=== PATIENT | female | born 1935 ===

== ENCOUNTER 2025-05-23 07:57 | Inpatient (IN) | payer OTHER, SELFPAY ==
--- NOTE | ~2025-05-23 | CT_ITS ---
CLINICAL HISTORY: ams CT head without contrast. COMPARISON: None provided. FINDINGS: Right frontal approach TRACK FITTER shunt tubing tip terminates in the anterior horn of the right lateral ventricle. There is moderate enlargement of the lateral ventricles. Basilar cisterns are patent. No mass or mass effect. No intracranial hemorrhage or abnormal extra-axial fluid collection. Periventricular areas of hypoattenuation consistent with moderate white-matter small-vessel disease. Mild encephalomalacia along the TRACK FITTER shunt tubing in the right frontal lobe. Posterior fossa is unremarkable. Visualized paranasal sinuses and mastoid air cells are clear. No calvarial fracture. Hyperostosis frontalis. Atherosclerotic intracranial vasculature. IMPRESSION: 1. No acute intracranial findings. 2. Moderate enlargement of the lateral ventricles with ventriculoperitoneal shunt tubing positioned within the anterior horn of the right lateral ventricle. Recommend comparison with prior imaging if available. This document has been electronically signed by: Bran Tran MD on 05/23/2025 18:15:22
--- NOTE | ~2025-05-23 | CT_ITS ---
CLINICAL HISTORY: unwitnessed fall CT Head Without Contrast: Comparison: 05/23/2025 Findings: Cortical sulci are prominent. Ventricles are symmetric. There is right frontal approach ventricular catheter tip located at the septum pellucidum right lateral ventricle. Small periventricular focal areas of white matter degeneration are unchanged from the previous exam. No pericatheter fluid collections or extracranial signs of catheter disconnection. Small bilateral remote basal ganglia lacunar infarcts are present, unchanged from previous exam. No shift in midline structures No intraparenchymal bleeding or abnormal extra axial blood fluid collections Normal pituitary size There is mucosal thickening and small fluid collections in the inferior bilateral maxillary sinuses Unremarkable orbital structures No depressed fractures. Middle ear cavities and mastoid air cells are clear Impression: The right side ventriculoperitoneal catheter is unchanged in appearance from the previous exam. Ventricular sizes are unchanged from the previous exam. No signs of acute trauma This document has been electronically signed by: Kiran Michelle MD on 05/25/2025 17:13:54
[2025-05-23 08:10] VITALS: BMI 22.6
[2025-05-23 08:13] VITALS: BP 148/67; PULSE 54; RESP 16; TEMP 36.5; O2SAT 96
--- NOTE | 2025-05-23 08:22 | ED.GENADULT ---
HPI - General Adult General Chief complaint: Behavioral Concerns Stated complaint: SEC 12,COMBATIVE PER EMS Time Seen by Provider: 05/23/25 08:13 Source: patient and EMS Mode of arrival: EMS Limitations: altered mental status History of Present Illness ED Provider: GIRISH Concepcion HPI narrative: 89-year-old female history of dementia presents from the [facility] on a section 12 for combative behavior, altered mentation . Upon arrival when I asked her why she is here she tells me ?I need my [employer] adf consultant?. And then she says ?murder ?. If I asked her if something hurts she just does not answer me. Unable to obtain history or review of systems due to patient's mental status. Related Data Allergies Allergy/AdvReac Type Severity Reaction Status Date / Time No Known Allergies Allergy Verified 05/23/25 08:12 Review of Systems Review of Systems: Yes all other systems are reviewed and are negative [facility] Past Medical History Attestation statement: The following information was validated with the patient. Source: old records reviewed and nursing notes reviewed Social History Social History Smoked in Last 30 Days: No Use of substances other than those prescribed or required for medical reasons: No Advance Directives: No Advance Directives Information Provided: No Physical Exam ED Exam Exam: Appearance: Alert.? No acute distress.? Head: Normocephalic, atraumatic, no step-offs or deformities Eyes: Pupils equal, round and reactive to light.? Neck: Normal inspection.? Neck supple.? CVS: Normal heart rate and rhythm.? Pulses normal.? Respiratory: No respiratory distress.? Breath sounds normal.? Abdomen: Soft and nontender.? Skin: Skin warm and dry.? Normal skin color.? Normal skin turgor.? Extremities: No lower extremity edema.? No calf ttp. 5/5 strength to bilateral upper and lower extremities Back: No midline tenderness, no C-spine tenderness, full range of motion, no CVA tenderness bilaterally Neuro: Able to assess neurological status as patient is not answering questions. Vital Signs: Vital Signs - 24 hr 05/23/25 08:13 Temperature 97.7 F Pulse Rate 54 Respiratory Rate 16 Blood Pressure 148/67 H Pulse Oximetry 96 Oxygen Delivery Method Room Air BMI result Body Mass Index 22.6 Course Reevaluation(s) Reevaluation #1: CBC with a normocytic anemia. Chemistry with no acute electrolyte abnormalities needing intervention. Ethanol negative. Urine toxicology pending. Urine pending. Patient common cooperative therefore restraints were canceled earlier. Time: 10:48 Reevaluation #2: Upon review of [facility] records patient was diagnosed with UTI and [facility] which she has been taking. It appears as though her behaviors getting worse despite antibiotics. Plan hospital admission. Time: 14:55 Medications Administered Discontinued Medications Generic Name Dose Route Start Last Admin Trade Name Anjum PRN Reason Stop Dose Admin Diazepam 2.5 mg 05/23/25 08:22 05/23/25 08:39 Diazepam 10 Mg/2 Ml Cartridge IM 05/23/25 08:23 2.5 mg STAT STA Administration Diphenhydramine HCl 25 mg 05/23/25 08:22 05/23/25 08:39 Diphenhydramine Hcl 50 Mg/Ml Vial IM 05/23/25 08:23 25 mg ONCE ONE Administration Haloperidol Lactate 5 mg 05/23/25 08:22 05/23/25 08:39 Haloperidol Lactate 5 Mg/Ml Vial IM 05/23/25 08:23 5 mg ONCE ONE Administration Medical Decision Making Medical Decision Making [facility] Narrative: 89-year-old female presents on a section 12 for combative behavior from the [facility]. Not cooperative with history taking. Repetitively trying to get out of bed Patient is not following commands she is not listening to staff members she is trying to get out of bed and nearly falling. Not redirectable. She is a threat to self and others. At this time medication restraints ordered. Physical exam patient not cooperative, unable to perform neurologic assessment. This is likely acute psychosis, bipolar, schizophrenia and/or dementia. Will rule out UTI although less likely. Will rule out metabolic derangements. Unlikely intracranial hemorrhage, stroke, posterior stroke Plan medical clearance evaluation by care team. Differential Diagnosis Differential Diagnoses: The differential diagnosis associated with the presentation includes ( This is likely acute psychosis, bipolar, schizophrenia and/or dementia. Will rule out UTI although less likely. Will rule out metabolic derangements. Unlikely intracranial hemorrhage, stroke, posterior stroke) Admission/Observation Consideration of admission/observation: Escalation of care including admission/observation considered Lab Data [facility] Lab Attestation statement: I reviewed the patient's lab results. 05/23/25 09:13 05/23/25 09:13 Labs: Lab Results 05/23/25 Range/Units 09:13 WBC 6.3 (4.8-10.8) X10*3/uL RBC 3.73 L (4.20-5.50) X10*6/uL Hgb 11.9 L (12.0-16.0) g/dl Hct 35.4 L (37.0-47.0) % MCV 94.9 (80.0-98.0) fL MCH 31.9 (27.0-33.0) pg MCHC 33.6 (31.0-35.0) g/dl RDW 13.2 (11.0-16.0) % Plt Count 185 (160-400) X10*3/uL MPV 9.8 (9.4-12.3) fL Immature Gran % (Auto) 0.3 (0.0-0.4) % Neut % (Auto) 69.8 (45-73) % Lymph % (Auto) 16.4 L (20-40) % [place] % (Auto) 9.7 (2-11) % Eos % (Auto) 3.3 (0-4) % Baso % (Auto) 0.5 (0-2) % Lymph # (Auto) 1.0 L (1.2-4.9) X10*3/uL [place] # (Auto) 0.6 (0.1-1.2) X10*3/uL Eos # (Auto) 0.2 (0.0-0.4) X10*3/uL Baso # (Auto) 0.0 (0.0-0.2) X10*3/uL Abs Immat Gran (auto) 0.02 (0.00-0.03) X10*3/uL Absolute Neuts (auto) 4.4 (2.0-8.3) x10*3/uL Absolute Nucleated RBC 0.000 (0.0-0.012) X10*3/uL Nucleated RBC % (auto) 0.0 (0.0-0.2) /100WBC Sodium 146 H (135-145) mmol/L Potassium 3.7 (3.3-5.1) mmol/L Chloride 112 H (96-108) mmol/L Carbon Dioxide 27 (22-29) mmol/L Anion Gap 11 L (12-20) BUN 17 H (9-16) mg/dL Creatinine 0.81 (0.5-1.4) mg/dL Estim Creat Clear Calc 44.9 Estimated GFR > 60 Random Glucose 85 (60-115) mg/dL Calcium 8.9 (8.4-10.2) mg/dL Magnesium 1.9 (1.6-2.6) mg/dL Total Bilirubin 0.4 (0.0-1.0) mg/dL AST 55 H (5-31) U/L ALT 63 H (0-31) U/L Alkaline Phosphatase 81 (39-117) U/L Total Protein 5.9 L (6.5-8.0) g/dL Albumin 3.7 (3.5-5.0) g/dL Ethyl Alcohol < 10 mg/dL External Record Review External record reviewed: Outpatient record Critical Care Time Critical Care Time Critical Care Time: Yes Total Critical Care Time: 35 Attestation: I attest to this time spent taking care of the patient, obtaining history, physical, reviewing labs, imaging, treatment of patients condition +/- specialist/hospitalist consult +/- procedure Discharge Plan Discharge Clinical Impression: Acute psychosis, Aggression, Delirium, Urinary tract infection Patient Disposition: Admitted As Inpatient Print Language: Martiniquais
--- NOTE | 2025-05-23 08:26 | ECG_ITS ---
Test Reason : Psych Evaluation Blood Pressure : */* mmHG Vent. Rate : 53 BPM Atrial Rate : 53 BPM P-R Int : 174 ms QRS Dur : 84 ms QT Int : 442 ms P-R-T Axes : 73 -18 29 degrees QTcB Int : 414 ms Sinus bradycardia Nonspecific ST abnormality Abnormal ECG No previous ECGs available Referred By: Mari Concepcion Electronically Signed By: Ray Escobar
[2025-05-23] MEDS: diazePAM 10 MG/2 ML CARTRIDGE 2.5 MG IM (08:39)
[2025-05-23 09:23] LABS: MANUAL DIFF FLAG NO
[2025-05-23 09:25] LABS: Hematocrit 35.4 % (37.0-47.0); Hemoglobin 11.9 g/dl (12.0-16.0); Imm Gran Abs Auto 0.02 X10*3/uL (0.00-0.03); Imm Gran Pct Auto 0.3 % (0.0-0.4); Lymphocytes Absolute Auto 1.0 X10*3/uL (1.2-4.9); Mean Corpuscular HGB Conc 33.6 g/dl (31.0-35.0); Mean Corpuscular Hemoglobin 31.9 pg (27.0-33.0); Mean Corpuscular Volume 94.9 fL (80.0-98.0); NRBC Abs Auto 0.000 X10*3/uL (0.0-0.012); NRBC Pct Auto 0.0 /100WBC (0.0-0.2); Platelet Count 185 X10*3/uL (160-400); Red Blood Count 3.73 X10*6/uL (4.20-5.50); White Blood Count 6.3 X10*3/uL (4.8-10.8)
[2025-05-23 09:46] LABS: Alanine Aminotransferase 63 U/L (0-31); Albumin Level 3.7 g/dL (3.5-5.0); Alkaline Phosphatase 81 U/L (39-117); Anion Gap 11 (12-20); Aspartate Amino Transferase 55 U/L (5-31); Blood Urea Nitrogen 17 mg/dL (9-16); Calcium 8.9 mg/dL (8.4-10.2); Carbon Dioxide 27 mmol/L (22-29); Chloride 112 mmol/L (96-108); Creatinine Clr Calc Pharmacy 44.9; Estimated Glomerular Filt Rate > 60; Magnesium 1.9 mg/dL (1.6-2.6); Potassium 3.7 mmol/L (3.3-5.1); Sodium 146 mmol/L (135-145); Total Protein 5.9 g/dL (6.5-8.0)
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
--- NOTE | 2025-05-23 15:28 | PHA.MEDREC ---
Addendum entered by Carlos White, Dick 05/23/25 16:07: MED REC CHECKED BY [facility] Original Note: Pharmacy Consult ? Medication Reconciliation Pharmacy has completed the medication reconciliation. Utilized list from the [facility] to confirm med list.
--- NOTE | 2025-05-23 16:22 | PM.IMHP ---
History of Present Illness Date of Service: 05/23/25 Attending physician on admission: [facility] Chief Complaint: AMS This is an 89-year-old female with a history of dementia who was sent in from the [facility] on a section 12 due to combative behavior. She was seen at [facility] 2 days ago and diagnosed with a UTI and discharged on Keflex. In the emergency department she is afebrile, lab work reveals no leukocytosis. Chemistry does reveal mild hypernatremia with a sodium of 146, mild transaminitis with continue AST 55, ALT 63. Alcohol level less than 10. In the emergency department she received Valium and Haldol and was also started on IV ceftriaxone due to concern over worsening urinary tract infection. UA has not been collected at this time. Patient was calm and cooperative upon my exam, she knows her name and as she is in the hospital but is unable to provide any history regarding her health or why she is here. Medical history was obtained from her chart sent from the [facility] which indicates a history of hypertension, hyperlipidemia, anxiety, dementia, mood disorder, delirium unspecified, psychotic disturbance unspecified. She denies any specific complaints including dysuria, abdominal pain, nausea, vomiting, fever, chills. She has not remember going to [facility] or what happened while she was there. She did not know that she has been recently diagnosed with a UTI or that she has been taking antibiotics. Review of Systems Review of Systems: Not a reliable historian Yes all other systems are reviewed and are negative Constitutional: Constitutional: Denies chills and Denies fever(s) Cardiovascular: Cardiovascular: Denies chest pain and Denies palpitations Gastrointestinal: Gastrointestinal: Denies nausea and Denies vomiting Endocrine: Endocrine: Denies palpitations [facility] Medical History Anxiety HLD (hyperlipidemia) HTN (hypertension) Dementia Social History Smoked in Last 30 Days: No Use of substances other than those prescribed or required for medical reasons: No Advance Directives: No Advance Directives Information Provided: No Meds Allergies Allergy/AdvReac Type Severity Reaction Status Date / Time No Known Allergies Allergy Verified 05/23/25 08:12 Active Medications: Current Medications Acetaminophen (Acetaminophen 325 Mg Tablet) 650 mg PO Q6H PRN PRN Reason: Pain, Mild 1-3,fever,headache Calcium Carbonate (Calcium Carbonate 750 Mg Tab.Chew) 750 mg PO Q4H PRN PRN Reason: Heartburn Enoxaparin Sodium (Enoxaparin Sodium 40 Mg/0.4 Ml Syringe) 40 mg SUBCUT Q24H ZOË Magnesium Hydroxide (Milk Of Magnesia 30 Ml Oral.Susp) 30 ml PO DAILY PRN PRN Reason: Constipation Melatonin (Melatonin 3 Mg Tablet) 6 mg PO BEDTIME PRN PRN Reason: Insomnia Sodium Chloride (0.9 % Sodium Chloride Flush 3 Ml Syringe) 3 ml IVFLUSH QSHIFT [facility] Home Medications ?Medication ?Instructions ?Recorded ?Confirmed ?Last Taken ?Type alendronate 70 mg tablet 70 mg PO PONCE 05/23/25 05/23/25 Unknown History atorvastatin 10 mg tablet 10 mg PO DAILY 05/23/25 05/23/25 Unknown History calcium 600 mg (as 1 cap PO BID 05/23/25 05/23/25 Unknown History carbonate)-vitamin D3 5 mcg (200 unit) capsule (Calcium 600 + D(3)) carvedilol 3.125 mg tablet 3.125 mg PO BID 05/23/25 05/23/25 Unknown History docusate sodium 100 mg capsule 100 mg PO BID 05/23/25 05/23/25 Unknown History (Colace) donepezil 23 mg tablet 23 mg PO BEDTIME 05/23/25 05/23/25 Unknown History doxepin 10 mg capsule 20 mg PO BEDTIME 05/23/25 05/23/25 Unknown History gabapentin 100 mg capsule 100 mg PO TID 05/23/25 05/23/25 Unknown History melatonin 3 mg tablet 6 mg PO BEDTIME insomnia 05/23/25 05/23/25 Unknown History multivitamin 1 tab PO DAILY 05/23/25 05/23/25 Unknown History sertraline 100 mg tablet 100 mg PO DAILY 05/23/25 05/23/25 Unknown History trazodone 50 mg tablet 25 mg PO BEDTIME 05/23/25 05/23/25 Unknown History Physical Exam Vital Signs and Narrative: Vital Signs: Last Vital Signs Temp 97.7 F 05/23/25 08:13 Pulse 54 05/23/25 08:13 Resp 16 05/23/25 08:13 BP 148/67 H 05/23/25 08:13 Pulse Ox 96 05/23/25 08:13 O2 Del Method Room Air 05/23/25 08:13 BMI result Body Mass Index 22.6 Const: General: cooperative, comfortable, alert, awake and Physically active Nutritional Appearance: average body habitus Orientation/consciousness: oriented to person and oriented to place (knows she is in the hospital, did not know it was [facility]) Eyes: Pupils: Equal, round and reactive pupils present Resp: Effort & Inspection: normal respiratory effort, able to speak in complete sentences and no respiratory distress Cardio: Rate: regular rate GI: Inspection: No distended Palpation (GI): Soft to palpation and nontender Neuro: Other: speech clear General: oriented to person, oriented to place (knows she is in the hospital, did not know it was [facility]), moves all extremities and CN's II-XI intact bilaterally Cranial nerves: Yes Equal, round and reactive pupils present Results Labs 05/23/25 09:13 05/23/25 09:13 Labs: Laboratory Results - last 24 hr 05/23/25 09:13 MCV 94.9 MCH 31.9 MCHC 33.6 RDW 13.2 Plt Count 185 MPV 9.8 Immature Gran % (Auto) 0.3 Neut % (Auto) 69.8 Lymph % (Auto) 16.4 L [place] % (Auto) 9.7 Eos % (Auto) 3.3 Baso % (Auto) 0.5 Lymph # (Auto) 1.0 L [place] # (Auto) 0.6 Eos # (Auto) 0.2 Baso # (Auto) 0.0 Abs Immat Gran (auto) 0.02 Absolute Neuts (auto) 4.4 Absolute Nucleated RBC 0.000 Nucleated RBC % (auto) 0.0 Anion Gap 11 L Estim Creat Clear Calc 44.9 Estimated GFR > 60 Random Glucose 85 Calcium 8.9 Magnesium 1.9 Total Bilirubin 0.4 AST 55 H ALT 63 H Alkaline Phosphatase 81 Total Protein 5.9 L Albumin 3.7 Ethyl Alcohol < 10 Assessment and Plan (1) Altered mental status: Status: Acute Plan This is an 89-year-old female with a history of dementia, anxiety, hyperlipidemia, hypertension, mood disorder history of psychotic disturbance who was sent on section 12 from [facility] due to combative behavior Acute encephalopathy work up in progress, no obvious source at this time h/o dementia - appears to have mood disorder and h/o psychotic d/o based on chart no focal neurological deficits. no fever, or wbc count to indicate infection [facility] records reviewed urine culture from 05/21 is negative Mild hypernatremia (na 146 and mild transaminitis) does not explain reported change in behavior UA, full drug screen and blood cultures pending, brain CT, B12, folate, TSH if all negative ?progression of dementia or psychiatric illness - will consult psych for input brought in on section 12 - will need care team eval prior to discharge Mild hypernatremia follow BMP transaminitis trend LFTs dementia/mood Continue sertraline, trazodone, doxepin, denepezil HTN carvedilol HLD statin dvt ppx - lovenox code status - MOLST form DNR/DNI Due to unclear cause of encephalopathy and ongoing workup hospital stays expected to span 2 midnights for workup and evaluation Quality Stroke Does the patient have a stroke diagnosis?: No VTE Prior VTE?: No VTE Risk Level:: Medical - moderate - high VTE Device Contraindication: N/A - Device Ordered VTE Drug Contraindication: N/A - Med Ordered
[2025-05-23 17:01] LABS: Thyroid Stimulating Hormone 0.75 uIU/mL (0.32-4.0)
--- NOTE | 2025-05-23 17:02 | PC.NURSE ---
Report given to overflow
[2025-05-23 17:11] VITALS: BP 160/79; PULSE 54; RESP 18; TEMP 36.1; O2SAT 98
[2025-05-23] MEDS: OLANZapine 10 MG VIAL 2.5 MG IM (17:40)
--- NOTE | 2025-05-23 17:48 | PC.NURSE ---
patient was brought over from main ED to OF bed 4, pt awake/alert to person and knows she is in the hospital rr equal/non labored, vitals were obtained and are stable. Within a few minutes of patient on overflow, pt began exit seeking and was agitated, unable to be redirected and combative. Security was called to assist and provider was notified who suggested the PO zyprexa- pt attempting to rip out the IV in her hand- provider Radha Sal was notified we need IM medications. Dr. Soliz ordered IM zyprexa and came to the OF unit to find the patient at the nurses station being confrontational and cantankerous again exit seeking. Pharmacy was called as the order wasnt approved and it was needed stat, this nurse called to main to get the medication brought over if possible. Pharmacy approved the order and came down with the medication. The patient was administered 2.5 mg IM zyprexa- please see medical restraint form.
[2025-05-23 20:00] VITALS: BP 148/51; PULSE 54; RESP 14; TEMP 36.7; O2SAT 97
[2025-05-23 20:21] VITALS: PULSE 54
[2025-05-23] MEDS: traZODone HCL 25 MG HALFTAB PO (20:26)
--- NOTE | 2025-05-23 20:48 | PM.PSYCN ---
History of Present Illness Date of Service: 05/23/25 Chief Complaint: encephalopathy Reason for Consult: increasing agitation behaviors Requesting physician: Radha Sal Discussed with referring provider: Yes (Briefly as provider is not currently on shift ) Sources of Information: patient interviewed and crisis/core team assessment reviewed HPI Narrative: 89-year-old female history of dementia presents from the [facility] on a section 12 for combative behavior, altered mentation Patient seen 1855 in her room [facility] with the presence of sitter in her room. Patient is not reliable person d/t possible dementia and forgetful with current mental stattus change. Prior to meet with this provider, patient was given IM 2.5mg of Zyprexa d/t agitation. She appears calmer, pleasant and cooperative. She feels overwhelmed and not sure how and what brought her here at [facility] She is aware of , knowing she is in the hospital but not day/date/year/ or situation. Past Psychiatric History: Denies. However, poor historian Medical Evaluation Reviewed: Yes Deferred to medical team. Per the attending, patient has no contributing medical condition to her mental status change. Personal & Social History: report she is single, never and has no children Review of Systems Review of Systems No SOB or coughing. No breathing problems during 1-1 assessment. Yes Unobtainable due to mental status PMFSH Medical History Anxiety HLD (hyperlipidemia) HTN (hypertension) Dementia Family History: Not able to obtain. She reports her parents are still alive. they are both 88-89 years old . Denies having siblings. 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 Substance History: Not discuss Trauma History: not discuss Diagnostics Vital Signs (24Hr): Vital Signs - 24 hr 05/23/25 08:13 05/23/25 17:11 05/23/25 20:00 Temperature 97.7 F 97.0 F 98.1 F Pulse Rate 54 54 54 Respiratory Rate 16 18 14 Blood Pressure 148/67 H 160/79 H 148/51 H Pulse Oximetry 96 98 97 Oxygen Delivery Method Room Air Room Air Room Air 05/23/25 20:21 Temperature Pulse Rate 54 Respiratory Rate Blood Pressure Pulse Oximetry Oxygen Delivery Method BMI result Body Mass Index 22.6 Labs 05/23/25 09:13 05/23/25 09:13 Labs: Laboratory Results - last 48 hr 05/23/25 05/23/25 09:13 16:35 WBC 6.3 RBC 3.73 L Hgb 11.9 L Hct 35.4 L MCV 94.9 MCH 31.9 MCHC 33.6 RDW 13.2 Plt Count 185 MPV 9.8 Immature Gran % (Auto) 0.3 Neut % (Auto) 69.8 Lymph % (Auto) 16.4 L [place] % (Auto) 9.7 Eos % (Auto) 3.3 Baso % (Auto) 0.5 Lymph # (Auto) 1.0 L [place] # (Auto) 0.6 Eos # (Auto) 0.2 Baso # (Auto) 0.0 Abs Immat Gran (auto) 0.02 Absolute Neuts (auto) 4.4 Absolute Nucleated RBC 0.000 Nucleated RBC % (auto) 0.0 Sodium 146 H Potassium 3.7 Chloride 112 H Carbon Dioxide 27 Anion Gap 11 L BUN 17 H Creatinine 0.81 Estim Creat Clear Calc 44.9 Estimated GFR > 60 Random Glucose 85 Lactic Acid 1.2 Calcium 8.9 Magnesium 1.9 Total Bilirubin 0.4 AST 55 H ALT 63 H Alkaline Phosphatase 81 Total Protein 5.9 L Albumin 3.7 TSH 0.75 Ethyl Alcohol < 10 Mental Status Exam Mental Status Exam Narrative: Patient is alert and awake. She is wearing hospital attire. Knowing her but not knowing how old she is. She does not know day/date/year and situation that that brought her to the ED. She is aware now that she has been agitated as she was told about her behavior. She feels overwhelmed being here and do not know what is going on. She reports feeling anxious and depressed. Do not appear to be psychotic or making any delusional statements. Speech is spontaneous, WN, no pressure. Hair is unkempt. Poor insight and judgment. She is calmer that she was per nursing after IM Zyprexa. Medications Medications Current Medications Acetaminophen (Acetaminophen 325 Mg Tablet) 650 mg PO Q6H PRN PRN Reason: Pain, Mild 1-3,fever,headache Atorvastatin Calcium (Atorvastatin Calcium 10 Mg Tablet) 10 mg PO DAILY [facility] Calcium Carbonate (Calcium Carbonate 750 Mg Tab.Chew) 750 mg PO Q4H PRN PRN Reason: Heartburn Carvedilol (Carvedilol 3.125 Mg Tablet) 3.125 mg PO BID [facility]; Protocol Last Admin: 05/23/25 20:21 Dose: Not Given Docusate Sodium (Docusate Sodium 100 Mg Capsule) 100 mg PO BID [facility] Last Admin: 05/23/25 20:22 Dose: 100 mg Doxepin HCl (Doxepin Hcl 10 Mg Capsule) 20 mg PO BEDTIME [facility] Enoxaparin Sodium (Enoxaparin Sodium 40 Mg/0.4 Ml Syringe) 40 mg SUBCUT Q24H [facility] Last Admin: 05/23/25 16:59 Dose: 40 mg Gabapentin (Gabapentin 100 Mg Capsule) 100 mg PO TID [facility] Last Admin: 05/23/25 20:20 Dose: 100 mg Lorazepam (Lorazepam 0.5 Mg Tablet) 0.5 mg PO Q8H PRN PRN Reason: severe anxiety Magnesium Hydroxide (Milk Of Magnesia 30 Ml Oral.Susp) 30 ml PO DAILY PRN PRN Reason: Constipation Melatonin (Melatonin 3 Mg Tablet) 6 mg PO BEDTIME PRN PRN Reason: Insomnia Melatonin (Melatonin 3 Mg Tablet) 6 mg PO BEDTIME [facility] Last Admin: 05/23/25 20:22 Dose: 6 mg Multivitamins/Vitamin C (Multivitamin Tablet) 1 tab PO DAILY [facility] Non-Formulary Medication (Donepezil) 23 mg PO BEDTIME [facility] Olanzapine (Olanzapine 2.5 Mg Tablet) 2.5 mg PO BID [facility] Last Admin: 05/23/25 20:23 Dose: 2.5 mg Olanzapine (Olanzapine 5 Mg Tablet) 5 mg PO BID PRN PRN Reason: agitation/restlessness Sertraline HCl (Sertraline Hcl 100 Mg Tablet) 100 mg PO DAILY [facility] Sodium Chloride (0.9 % Sodium Chloride Flush 3 Ml Syringe) 3 ml IVFLUSH QSHIFT [facility] Trazodone HCl (Trazodone Hcl 25 Mg Halftab) 25 mg PO BEDTIME [facility] Last Admin: 05/23/25 20:26 Dose: 25 mg Allergies Allergies Allergy/AdvReac Type Severity Reaction Status Date / Time No Known Allergies Allergy Verified 05/23/25 08:12 Assessment & Plan Assessment & Plan (1) Aggression: Status: Acute Code(s): R46.89 - Other symptoms and signs involving appearance and behavior Plan 89-year-old female history of dementia presents from the [facility] on a section 12 for combative behavior, altered mentation. Per the attending, no medical condition contributing to her mental status. U/A culture is pending. Patient seen 1855 in her room [facility] with the presence of sitter in her room. Patient is not reliable person d/t possible dementia and forgetful with current mental status change. Prior to meet with this provider, patient was given IM 2.5mg of Zyprexa d/t agitation. She appears calmer, pleasant and cooperative. She feels overwhelmed and not sure how and what brought her here at [facility]. She is aware of , knowing she is in the hospital but not day/date/year/ or situation. At this time, I do not have information regarding family. Would need collateral Patient responded welll to IM zyprexa given prior to seeing this provider. Calm- anxious , overwhelmed, forgetful, cannot recall her behavior and do not know why she is here. She is not a reliable person for information. Thinking her parents are still alive and they are in their 88-89 which is similar to her age. For agitation: I would start her on low dose on Zyprexa 2.5 BID with 5mg PO BID PRN for severe agitation. Ativan 0.5 low dose q8hrs PRN for severe anxiety. Nursing to monitor for sedation and for any side effects as well as mental status change. Continue with 1-1 sitter for safety. Total time managing care of this patient today ____ minutes. Patient educated on: medication risk/benefits Informed Consent: further education needed
[2025-05-23] MEDS: 0.9 % Sodium Chloride Flush 3 ML SYRINGE IVFLUSH (23:18)
[2025-05-24 07:10] LABS: Alanine Aminotransferase 67 U/L (0-31); Albumin Level 3.6 g/dL (3.5-5.0); Alkaline Phosphatase 78 U/L (39-117); Anion Gap 17 (12-20); Aspartate Amino Transferase 56 U/L (5-31); Blood Urea Nitrogen 17 mg/dL (9-16); Calcium 8.7 mg/dL (8.4-10.2); Carbon Dioxide 23 mmol/L (22-29); Chloride 107 mmol/L (96-108); Creatinine Clr Calc Pharmacy 42.8; Estimated Glomerular Filt Rate > 60; Potassium 3.7 mmol/L (3.3-5.1); Sodium 143 mmol/L (135-145); Total Protein 5.6 g/dL (6.5-8.0)
[2025-05-24 07:36] VITALS: BP 178/87; PULSE 60; RESP 16; TEMP 36.2; O2SAT 98
[2025-05-24 07:42] LABS: Folate 7.9 ng/mL (> or = 4.0); Vitamin B12 500 pg/mL (200-900)
--- NOTE | 2025-05-24 09:25 | P.PNIM_ITS ---
Subjective Subjective Date of Service: 05/24/25 Review of Systems Follow up encephalopathy Still very confused and yelling at staff Ambulating with her walker Physical Exam 2 Exam: Exam: Appearing in no acute distress lung sounds are clear to auscultation heart regular rate rhythm, clear S1, S2 positive bowel sounds, abdomen is soft, nontender neuro patient is alert, confused Vital Signs: Vital Signs: Last Vital Signs Temp 97.2 F 05/24/25 07:36 Pulse 60 05/24/25 07:36 Resp 16 05/24/25 07:36 BP 178/87 H 05/24/25 07:36 Pulse Ox 98 05/24/25 07:36 O2 Del Method Room Air 05/24/25 07:36 BMI result Body Mass Index 22.6 Objective Data Active Medications Acetaminophen (Acetaminophen 325 Mg Tablet) 650 mg PO Q6H PRN PRN Reason: Pain, Mild 1-3,fever,headache Atorvastatin Calcium (Atorvastatin Calcium 10 Mg Tablet) 10 mg PO DAILY [facility] Calcium Carbonate (Calcium Carbonate 750 Mg Tab.Chew) 750 mg PO Q4H PRN PRN Reason: Heartburn Carvedilol (Carvedilol 3.125 Mg Tablet) 3.125 mg PO BID [facility]; Protocol Last Admin: 05/23/25 20:21 Dose: Not Given Documented By: AKIRA Non-Admin Reason: Decreased Heart Rate Docusate Sodium (Docusate Sodium 100 Mg Capsule) 100 mg PO BID [facility] Last Admin: 05/23/25 20:22 Dose: 100 mg Documented By: AKIRA Doxepin HCl (Doxepin Hcl 10 Mg Capsule) 20 mg PO BEDTIME [facility] Last Admin: 05/23/25 21:25 Dose: 20 mg Documented By: AKIRA Enoxaparin Sodium (Enoxaparin Sodium 40 Mg/0.4 Ml Syringe) 40 mg SUBCUT Q24H [facility] Last Admin: 05/23/25 16:59 Dose: 40 mg Documented By: SCIRPSUMEET Gabapentin (Gabapentin 100 Mg Capsule) 100 mg PO TID [facility] Last Admin: 05/23/25 20:20 Dose: 100 mg Documented By: AKIRA Lorazepam (Lorazepam 0.5 Mg Tablet) 0.5 mg PO Q8H PRN PRN Reason: severe anxiety Magnesium Hydroxide (Milk Of Magnesia 30 Ml Oral.Susp) 30 ml PO DAILY PRN PRN Reason: Constipation Melatonin (Melatonin 3 Mg Tablet) 6 mg PO BEDTIME PRN PRN Reason: Insomnia Last Admin: 05/24/25 01:49 Dose: 6 mg Documented By: TIFFANY Melatonin (Melatonin 3 Mg Tablet) 6 mg PO BEDTIME [facility] Last Admin: 05/23/25 20:22 Dose: 6 mg Documented By: AKIRA Multivitamins/Vitamin C (Multivitamin Tablet) 1 tab PO DAILY [facility] Non-Formulary Medication (Donepezil) 23 mg PO BEDTIME [facility] Olanzapine (Olanzapine 2.5 Mg Tablet) 2.5 mg PO BID [facility] Last Admin: 05/23/25 20:23 Dose: 2.5 mg Documented By: AKIAR Olanzapine (Olanzapine 5 Mg Tablet) 5 mg PO BID PRN PRN Reason: agitation/restlessness Sertraline HCl (Sertraline Hcl 100 Mg Tablet) 100 mg PO DAILY [facility] Sodium Chloride (0.9 % Sodium Chloride Flush 3 Ml Syringe) 3 ml IVFLUSH QSHIFT [facility] Last Admin: 05/23/25 23:18 Dose: 3 ml Documented By: TIFFANY Trazodone HCl (Trazodone Hcl 25 Mg Halftab) 25 mg PO BEDTIME [facility] Last Admin: 05/23/25 20:26 Dose: 25 mg Documented By: AKIRA Labs 05/23/25 09:13 05/24/25 06:13 Labs: Laboratory Results - last 24 hr 05/23/25 05/23/25 05/24/25 09:13 16:35 06:13 MCV 94.9 MCH 31.9 MCHC 33.6 RDW 13.2 Plt Count 185 MPV 9.8 Immature Gran % (Auto) 0.3 Neut % (Auto) 69.8 Lymph % (Auto) 16.4 L [place] % (Auto) 9.7 Eos % (Auto) 3.3 Baso % (Auto) 0.5 Lymph # (Auto) 1.0 L [place] # (Auto) 0.6 Eos # (Auto) 0.2 Baso # (Auto) 0.0 Abs Immat Gran (auto) 0.02 Absolute Neuts (auto) 4.4 Absolute Nucleated RBC 0.000 Nucleated RBC % (auto) 0.0 Anion Gap 11 L 17 Estim Creat Clear Calc 44.9 42.8 Estimated GFR > 60 > 60 Random Glucose 85 88 Lactic Acid 1.2 Calcium 8.9 8.7 Magnesium 1.9 Total Bilirubin 0.4 0.2 Direct Bilirubin < 0.2 AST 55 H 56 H ALT 63 H 67 H Alkaline Phosphatase 81 78 Total Protein 5.9 L 5.6 L Albumin 3.7 3.6 Vitamin B12 500 Folate 7.9 TSH 0.75 Ethyl Alcohol < 10 Assessment and Plan (1) Urinary tract infection: Status: Acute (2) Altered mental status: Status: Acute Plan 89-year-old female with a history of dementia, anxiety, hyperlipidemia, hypertension, mood disorder history of psychotic disturbance who was sent on section 12 from [facility] due to combative behavior Acute encephalopathy work up in progress, no obvious source at this time h/o dementia - appears to have mood disorder and h/o psychotic d/o based on chart no focal neurological deficits. no fever, or wbc count to indicate infection [facility] records reviewed urine culture from 05/21 is negative Mild hypernatremia (na 146 and mild transaminitis) does not explain reported change in behavior UA, full drug screen and blood cultures pending, brain CT, B12, folate, TSH if all negative ?progression of dementia or psychiatric illness - will consult psych for input brought in on section 12 - will need care team eval prior to discharge Mild hypernatremia follow BMP transaminitis trend LFTs dementia/mood Continue sertraline, trazodone, doxepin, denepezil HTN carvedilol HLD statin dvt ppx - lovenox code status - MOLST form DNR/DNI Quality Stroke Does the patient have a stroke diagnosis?: No VTE Prior VTE?: No VTE Risk Level:: Medical - moderate - high VTE Device Contraindication: N/A - Device Ordered VTE Drug Contraindication: N/A - Med Ordered
[2025-05-24 09:33] VITALS: BP 178/87; PULSE 60
[2025-05-24] MEDS: 0.9 % Sodium Chloride Flush 3 ML SYRINGE IVFLUSH ×3 (09:38→20:31)
--- NOTE | 2025-05-24 12:08 | MHC.CM.PN ---
Addendum entered by Nicolasa Dixon 05/24/25 12:55: CM RECEIVED A RETURN CALL FROM PTS ATTY WHO REPORTS HE IS THE PTS HCP AND POA, HE IS AWAY AND UNABLE TO ACCESS THE DOCUMENT AT THIS TIME, HOWEVER REPORTS IT IS ON FILE AT THE [facility] AND [facility] HE REPORTS THERE WAS CONCERN THAT HER MED PROVIDER PUT HER ON PRN MEDS AND THEY HOPE THAT WILL BE CHANGED PT WOULD NOT KNOW TO ASK FOR THEM HE IS AWARE PT HAS BEEN SEEN BY PSYCH PROVIDERS AND UNDERSTANDS HER PSYCH NEEDS MAY BE MANAGED WHILE ON THE MEDICAL UNIT CM SPOKE TO TAY AT THE [facility], SHE REPORTS SHE DOES NOT FEEL THE PT BELONGS THERE, HOWEVER IT WILL BE UP TO THE CUSTOMER SUCCESS INTERN WHO WILL BE BACK ON MONDAY SHE SAYS THE PT HAS BEEN AGGRESSIVE AND BANGING ON OTHER RESIDENTS DOORS, SHE ALSO REITERATED THE NEED FOR SCHEDULED MEDS AND HOPES ANY PRN MEDS WILL BE DC'D SHE WILL FAX A COPY OF THE PTS HCP TO CM Addendum entered by Nicolasa Dixon 05/24/25 12:14: PCP: REENA MATHEWS Original Note: PER EHR, PT IS A RESIDENT OF [facility] CM ATTEMPTED TO CONTACT STAFF AT THE [facility] TO GET BASELINE INFORMATION AND DISCUSS POTENTIAL DCP, HOWEVER THERE WAS NO ANSWER PER CHART, PT HAS A LEGAL GUARDIAN, ATTStephen MUSTAFA [phone], LEFT REQUESTING A COPY OF DOCUMENT PER NOTES, PT IS ABLE TO GO BACK TO THE [facility], HOWEVER, THEY ARE REQUESTING A [facility]-PSYCH ADMISSION PRIOR TO HER RETURN.
[2025-05-24 15:28] VITALS: BP 133/65; PULSE 54; RESP 18; TEMP 36.3; O2SAT 93
--- NOTE | 2025-05-24 17:31 | PC.NURSE ---
Patient has not voided yet during t/w shift, pt encouraged to use bathroom but states I will go when i have to , t/w offered to bladder scan pt to ensure she is not retaining any urine however pt refusing at this time, pt also refusing scheduled lovenox injection, JERRY Avalos made aware
--- NOTE | 2025-05-24 18:45 | PC.NURSE ---
Pt agitated and attempting to enter and intrude the nurses station, patient redirected to room w/ help of PO and primary RN.
[2025-05-24 20:00] VITALS: BP 160/68; PULSE 52; RESP 14; TEMP 35.9; O2SAT 97
[2025-05-24] MEDS: traZODone HCL 25 MG HALFTAB PO (20:26)
[2025-05-24 20:38] VITALS: BP 160/68; PULSE 52
[2025-05-25 04:00] VITALS: RESP 16
[2025-05-25] MEDS: 0.9 % Sodium Chloride Flush 3 ML SYRINGE IVFLUSH ×3 (09:58→20:12)
[2025-05-25 10:50] VITALS: BP 133/61; PULSE 60; RESP 12; TEMP 37; O2SAT 93
--- NOTE | 2025-05-25 11:16 | HO.PM.IMPN ---
Subjective Subjective Date of Service: 05/25/25 Review of Systems Follow up encephalopathy Still very confused and yelling at staff Ambulating with her walker Physical Exam Vital Signs: Vital Signs: Last Vital Signs Temp 98.6 F 05/25/25 10:50 Pulse 60 05/25/25 10:50 Resp 12 05/25/25 10:50 BP 133/61 05/25/25 10:50 Pulse Ox 93 05/25/25 10:50 O2 Del Method Room Air 05/25/25 10:50 BMI result Body Mass Index 22.6 Objective Data Active Medications Acetaminophen (Acetaminophen 325 Mg Tablet) 650 mg PO Q6H PRN PRN Reason: Pain, Mild 1-3,fever,headache Atorvastatin Calcium (Atorvastatin Calcium 10 Mg Tablet) 10 mg PO DAILY [facility] Last Admin: 05/25/25 09:59 Dose: 10 mg Documented By: JUAN PABLO Calcium Carbonate (Calcium Carbonate 750 Mg Tab.Chew) 750 mg PO Q4H PRN PRN Reason: Heartburn Carvedilol (Carvedilol 3.125 Mg Tablet) 3.125 mg PO BID [facility]; Protocol Last Admin: 05/25/25 09:59 Dose: Not Given Documented By: JUAN PABLO Non-Admin Reason: Decreased Heart Rate Docusate Sodium (Docusate Sodium 100 Mg Capsule) 100 mg PO BID [facility] Last Admin: 05/25/25 09:59 Dose: 100 mg Documented By: JUAN PABLO Doxepin HCl (Doxepin Hcl 10 Mg Capsule) 20 mg PO BEDTIME [facility] Last Admin: 05/24/25 20:26 Dose: 20 mg Documented By: ATILIO Enoxaparin Sodium (Enoxaparin Sodium 40 Mg/0.4 Ml Syringe) 40 mg SUBCUT Q24H [facility] Last Admin: 05/24/25 17:22 Dose: Not Given Documented By: JUAN PABLO Non-Admin Reason: Patient Refused Gabapentin (Gabapentin 100 Mg Capsule) 100 mg PO TID [facility] Last Admin: 05/25/25 09:59 Dose: 100 mg Documented By: JUAN PABLO Lorazepam (Lorazepam 0.5 Mg Tablet) 0.5 mg PO Q8H PRN PRN Reason: severe anxiety Last Admin: 05/24/25 09:34 Dose: 0.5 mg Documented By: JUAN PABLO Magnesium Hydroxide (Milk Of Magnesia 30 Ml Oral.Susp) 30 ml PO DAILY PRN PRN Reason: Constipation Melatonin (Melatonin 3 Mg Tablet) 6 mg PO BEDTIME PRN PRN Reason: Insomnia Last Admin: 05/24/25 01:49 Dose: 6 mg Documented By: TIFFANY Melatonin (Melatonin 3 Mg Tablet) 6 mg PO BEDTIME [facility] Last Admin: 05/24/25 20:27 Dose: 6 mg Documented By: ATILIO Multivitamins/Vitamin C (Multivitamin Tablet) 1 tab PO DAILY [facility] Last Admin: 05/25/25 09:59 Dose: 1 tab Documented By: JUAN PABLO Non-Formulary Medication (Donepezil) 23 mg PO BEDTIME [facility] Olanzapine (Olanzapine 2.5 Mg Tablet) 2.5 mg PO BID [facility] Last Admin: 05/25/25 09:59 Dose: 2.5 mg Documented By: JUAN PABLO Olanzapine (Olanzapine 5 Mg Tablet) 5 mg PO BID PRN PRN Reason: agitation/restlessness Last Admin: 05/24/25 15:42 Dose: 5 mg Documented By: JUAN PABLO Sertraline HCl (Sertraline Hcl 100 Mg Tablet) 100 mg PO DAILY [facility] Last Admin: 05/25/25 09:59 Dose: 100 mg Documented By: JUAN PABLO Sodium Chloride (0.9 % Sodium Chloride Flush 3 Ml Syringe) 3 ml IVFLUSH QSHIFT [facility] Last Admin: 05/25/25 09:58 Dose: 3 ml Documented By: JUAN PABLO Trazodone HCl (Trazodone Hcl 25 Mg Halftab) 25 mg PO BEDTIME [facility] Last Admin: 05/24/25 20:26 Dose: 25 mg Documented By: ATILIO Labs 05/23/25 09:13 05/24/25 06:13 Microbiology Microbiology Results: Microbiology 05/23/25 16:48 Blood Culture - Preliminary Blood - Venous No growth after 24 hours. 05/23/25 15:29 Blood Culture - Preliminary Blood - Venous No growth after 24 hours. Assessment and Plan (1) Urinary tract infection: Status: Acute (2) Altered mental status: Status: Acute Plan 89-year-old female with a history of dementia, anxiety, hyperlipidemia, hypertension, mood disorder history of psychotic disturbance who was sent on section 12 from [facility] due to combative behavior Acute encephalopathy work up in progress, no obvious source at this time h/o dementia - appears to have mood disorder and h/o psychotic d/o based on chart no focal neurological deficits. no fever, or wbc count to indicate infection [facility] records reviewed urine culture from 05/21 is negative Mild hypernatremia (na 146 and mild transaminitis) does not explain reported change in behavior UA, full drug screen and blood cultures pending, brain CT, B12, folate, TSH if all negative ?progression of dementia or psychiatric illness - will consult psych for input brought in on section 12 - will need care team eval prior to discharge Mild hypernatremia follow BMP transaminitis trend LFTs dementia/mood Continue sertraline, trazodone, doxepin, denepezil HTN carvedilol HLD statin dvt ppx - lovenox code status - MOLST form DNR/DNI Quality Stroke Does the patient have a stroke diagnosis?: No VTE Prior VTE?: No VTE Risk Level:: Medical - moderate - high VTE Device Contraindication: N/A - Device Ordered VTE Drug Contraindication: N/A - Med Ordered
[2025-05-25 12:01] LABS: Appearance Urine Clear; Glucose Urine UA Negative (Negative); PH 6.5 (5.0-9.0); Specific Gravity - Urine 1.020 (1.005-1.025); UMIC TRIGGER UACC YES
[2025-05-25 12:09] LABS: UACC Culture Trigger YES
[2025-05-25 12:21] LABS: Cannabinoid Screen Urine Not Detected (Not Detect)
--- NOTE | 2025-05-25 14:15 | PC.NURSE ---
1145 Patient ambulated to bathroom with walker and assist from 1:1 sitter, while using the bathroom sitter was waiting outside with the door cracked and asking pt if she needs helps or is done using the bathroom. Patient stated she was done and getting up, at that time sitter opened the door and pt was already tripped on her walker and fell to the floor. Patient stated no head strike however sitter was unable to verify and says he did not see her fall so he is unsure if any head strike happened. Pt states she is okay and would like to get up from the floor and go back to bed. As she was getting up she did mentioned her right arm was a little sore and she may have hit it against the wall while falling, no redness/bump/open wound present at this time, patient able to freely move arm without difficulty. Vitals were taken once pt returned to bed. T 97.8, BP 163/69, P 63, RR 18, O2 96% on RA. TRAVELING SALES REPRESENTATIVE Bailey Harrison made aware, STAT CT of head/brain w/o IV con ordered. Commode was placed at bedside and pt is to use commode rather than ambulate to bathroom per provider. 1:1 sitter educated on importance and purpose of high fall risk patients needing to have staff in the bathroom at all times. Patient continues to be a high fall risk; has bed alarm on, yellow socks/bracelet, 1:1 sitter and tele sitter in place
[2025-05-25 16:00] VITALS: BP 139/64; PULSE 58; RESP 18; TEMP 36.4; O2SAT 94
[2025-05-25 19:18] VITALS: BP 129/59; PULSE 60; RESP 18; TEMP 36.1; O2SAT 95
[2025-05-25] MEDS: traZODone HCL 25 MG HALFTAB PO (20:12)
[2025-05-26 03:12] VITALS: BP 133/60; PULSE 60; RESP 18; TEMP 36.2; O2SAT 95
[2025-05-26 08:00] VITALS: BP 143/64; PULSE 53; RESP 18; TEMP 36.4; O2SAT 94
[2025-05-26] MEDS: 0.9 % Sodium Chloride Flush 3 ML SYRINGE IVFLUSH ×3 (08:51→20:29)
--- NOTE | 2025-05-26 09:10 | P.PNIM_ITS ---
Subjective Subjective Date of Service: 05/26/25 Review of Systems Follow up encephalopathy Still very confused and yelling at staff Ambulating with her walker Physical Exam 2 Exam: Exam: Appearing in no acute distress lung sounds are clear to auscultation heart regular rate rhythm, clear S1, S2 positive bowel sounds, abdomen is soft, nontender neuro patient is alert x3, no focal deficits Vital Signs: Vital Signs: Last Vital Signs Temp 97.5 F 05/26/25 08:00 Pulse 53 05/26/25 08:00 Resp 18 05/26/25 08:00 BP 143/64 H 05/26/25 08:00 Pulse Ox 94 05/26/25 08:00 O2 Del Method Room Air 05/26/25 03:12 BMI result Body Mass Index 22.6 Objective Data Active Medications Acetaminophen (Acetaminophen 325 Mg Tablet) 650 mg PO Q6H PRN PRN Reason: Pain, Mild 1-3,fever,headache Atorvastatin Calcium (Atorvastatin Calcium 10 Mg Tablet) 10 mg PO DAILY [facility] Last Admin: 05/26/25 08:49 Dose: 10 mg Documented By: THANH Calcium Carbonate (Calcium Carbonate 750 Mg Tab.Chew) 750 mg PO Q4H PRN PRN Reason: Heartburn Carvedilol (Carvedilol 3.125 Mg Tablet) 3.125 mg PO BID [facility]; Protocol Last Admin: 05/26/25 08:49 Dose: 3.125 mg Documented By: THANH Docusate Sodium (Docusate Sodium 100 Mg Capsule) 100 mg PO BID [facility] Last Admin: 05/26/25 08:49 Dose: 100 mg Documented By: THANH Doxepin HCl (Doxepin Hcl 10 Mg Capsule) 20 mg PO BEDTIME [facility] Last Admin: 05/25/25 20:11 Dose: 20 mg Documented By: ATILIO Enoxaparin Sodium (Enoxaparin Sodium 40 Mg/0.4 Ml Syringe) 40 mg SUBCUT Q24H [facility] Last Admin: 05/25/25 16:20 Dose: 40 mg Documented By: JUAN PABLO Gabapentin (Gabapentin 100 Mg Capsule) 100 mg PO TID [facility] Last Admin: 05/26/25 08:49 Dose: 100 mg Documented By: THANH Lorazepam (Lorazepam 0.5 Mg Tablet) 0.5 mg PO Q8H PRN PRN Reason: severe anxiety Last Admin: 05/24/25 09:34 Dose: 0.5 mg Documented By: JUAN PABLO Magnesium Hydroxide (Milk Of Magnesia 30 Ml Oral.Susp) 30 ml PO DAILY PRN PRN Reason: Constipation Melatonin (Melatonin 3 Mg Tablet) 6 mg PO BEDTIME PRN PRN Reason: Insomnia Last Admin: 05/24/25 01:49 Dose: 6 mg Documented By: TIFFANY Melatonin (Melatonin 3 Mg Tablet) 6 mg PO BEDTIME [facility] Last Admin: 05/25/25 20:11 Dose: 6 mg Documented By: ATILIO Multivitamins/Vitamin C (Multivitamin Tablet) 1 tab PO DAILY [facility] Last Admin: 05/26/25 08:49 Dose: 1 tab Documented By: THANH Non-Formulary Medication (Donepezil) 23 mg PO BEDTIME [facility] Olanzapine (Olanzapine 2.5 Mg Tablet) 2.5 mg PO BID [facility] Last Admin: 05/26/25 08:49 Dose: 2.5 mg Documented By: THANH Olanzapine (Olanzapine 5 Mg Tablet) 5 mg PO BID PRN PRN Reason: agitation/restlessness Last Admin: 05/24/25 15:42 Dose: 5 mg Documented By: JUAN PABLO Sertraline HCl (Sertraline Hcl 100 Mg Tablet) 100 mg PO DAILY [facility] Last Admin: 05/26/25 08:49 Dose: 100 mg Documented By: THANH Sodium Chloride (0.9 % Sodium Chloride Flush 3 Ml Syringe) [facility] Last Admin: 05/26/25 08:51 Dose: 3 ml Documented By: THANH Trazodone HCl (Trazodone Hcl 25 Mg Halftab) 25 mg PO BEDTIME [facility] Last Admin: 05/25/25 20:12 Dose: 25 mg Documented By: ATILIO Labs 05/23/25 09:13 05/24/25 06:13 Labs: Laboratory Results - last 24 hr 05/25/25 11:50 Urine Color Yellow Urine Appearance Clear Urine pH 6.5 Ur Specific Lawrence 1.020 Urine Protein Negative Urine Glucose (UA) Negative Urine Ketones Trace Urine Blood Negative Urine Nitrite Negative Ur Leukocyte Esterase Small (1+) H Urine RBC 0-2 Urine WBC 0-5 Ur Squamous Epith Cells 0-2 Urine Bacteria None Seen Hyaline Casts 0-2 Urine Opiates Screen Not Detected Ur Buprenorphine Scrn Not Detected Ur Oxycodone Screen Not Detected Urine Methadone Screen Not Detected Urine Fentanyl Screen Not Detected Ur Barbiturates Screen Not Detected Ur Phencyclidine Scrn Not Detected Ur Amphetamines Screen Not Detected U Benzodiazepines Scrn Not Detected Urine Cocaine Screen Not Detected U Marijuana (THC) Screen Not Detected Microbiology Microbiology Results: Microbiology 05/23/25 16:48 Blood Culture - Preliminary Blood - Venous No growth after 48 hours. 05/23/25 15:29 Blood Culture - Preliminary Blood - Venous No growth after 48 hours. Assessment and Plan (1) Urinary tract infection: Status: Acute (2) Altered mental status: Status: Acute Plan 89-year-old female with a history of dementia, anxiety, hyperlipidemia, hypertension, mood disorder history of psychotic disturbance who was sent on section 12 from [facility] due to combative behavior Acute encephalopathy. Improving work up in progress, no obvious source at this time h/o dementia - appears to have mood disorder and h/o psychotic d/o based on chart no focal neurological deficits. no fever, or wbc count to indicate infection [facility] records reviewed urine culture from 05/21 is negative Mild hypernatremia (na 146 and mild transaminitis) does not explain reported change in behavior UA, full drug screen and blood cultures pending, brain CT, B12, folate, TSH if all negative ?progression of dementia or psychiatric illness - will consult psych for input brought in on section 12>care team eval prior to discharge Mild hypernatremia follow BMP transaminitis trend LFTs dementia/mood Continue sertraline, trazodone, doxepin, denepezil HTN carvedilol HLD statin dvt ppx - lovenox code status - MOLST form DNR/DNI Quality Stroke Does the patient have a stroke diagnosis?: No VTE Prior VTE?: No VTE Risk Level:: Medical - moderate - high VTE Device Contraindication: N/A - Device Ordered VTE Drug Contraindication: N/A - Med Ordered
--- NOTE | 2025-05-26 11:57 | MHC.CM.PN ---
Per MD rounds A Careteam consult will be ordered today. DP IPLOC vs return to [facility], via BLS.
[2025-05-26 16:00] VITALS: PULSE 70; RESP 18; TEMP 36.1; O2SAT 95
[2025-05-26 19:08] VITALS: BP 125/67; PULSE 57; RESP 18; TEMP 36.4; O2SAT 97
[2025-05-26] MEDS: traZODone HCL 25 MG HALFTAB PO (20:23)
[2025-05-26 20:24] VITALS: BP 174/80; PULSE 64
--- NOTE | 2025-05-27 05:34 | PC.NURSE ---
Pt ad some agitation over the night from number of people walking into the room, especially the male rounder. Was able to talk to her and get her up to the bathroom and for a walk. She got back into bed and was feeling better. The 1:1 sitter was placed in the hallway, with visibility on pt. Bed alarm is on and camera in place.
[2025-05-27 05:55] VITALS: BP 155/74; PULSE 54; RESP 18; TEMP 36.6; O2SAT 95
[2025-05-27 08:00] VITALS: BP 155/68; PULSE 54; RESP 17; TEMP 36; O2SAT 96
[2025-05-27] MEDS: 0.9 % Sodium Chloride Flush 3 ML SYRINGE IVFLUSH ×2 (08:42→14:09)
--- NOTE | 2025-05-27 10:25 | P.PNIM_ITS ---
Subjective Subjective Date of Service: 05/27/25 Review of Systems Follow up encephalopathy confusion on and off Ambulating with her walker Physical Exam 2 Exam: Exam: Appearing in no acute distress lung sounds are clear to auscultation heart regular rate rhythm, clear S1, S2 positive bowel sounds, abdomen is soft, nontender neuro patient is alert x3, no focal deficits Vital Signs: Vital Signs: Last Vital Signs Temp 96.8 F 05/27/25 08:00 Pulse 54 05/27/25 08:00 Resp 17 05/27/25 08:00 BP 155/68 H 05/27/25 08:00 Pulse Ox 96 05/27/25 08:00 O2 Del Method Room Air 05/27/25 08:00 BMI result Body Mass Index 22.6 Objective Data Active Medications Acetaminophen (Acetaminophen 325 Mg Tablet) 650 mg PO Q6H PRN PRN Reason: Pain, Mild 1-3,fever,headache Atorvastatin Calcium (Atorvastatin Calcium 10 Mg Tablet) 10 mg PO DAILY [facility] Last Admin: 05/27/25 08:40 Dose: 10 mg Documented By: RADHA Calcium Carbonate (Calcium Carbonate 750 Mg Tab.Chew) 750 mg PO Q4H PRN PRN Reason: Heartburn Carvedilol (Carvedilol 3.125 Mg Tablet) 3.125 mg PO BID [facility]; Protocol Last Admin: 05/27/25 08:40 Dose: 3.125 mg Documented By: RADHA Docusate Sodium (Docusate Sodium 100 Mg Capsule) 100 mg PO BID [facility] Last Admin: 05/27/25 08:40 Dose: 100 mg Documented By: RADHA Doxepin HCl (Doxepin Hcl 10 Mg Capsule) 20 mg PO BEDTIME [facility] Last Admin: 05/26/25 20:23 Dose: 20 mg Documented By: ATILIO Enoxaparin Sodium (Enoxaparin Sodium 40 Mg/0.4 Ml Syringe) 40 mg SUBCUT Q24H [facility] Last Admin: 05/26/25 16:12 Dose: 40 mg Documented By: THANH Gabapentin (Gabapentin 100 Mg Capsule) 100 mg PO TID [facility] Last Admin: 05/27/25 08:40 Dose: 100 mg Documented By: RADHA Lorazepam (Lorazepam 0.5 Mg Tablet) 0.5 mg PO Q8H PRN PRN Reason: severe anxiety Last Admin: 05/24/25 09:34 Dose: 0.5 mg Documented By: JUAN PABLO Magnesium Hydroxide (Milk Of Magnesia 30 Ml Oral.Susp) 30 ml PO DAILY PRN PRN Reason: Constipation Melatonin (Melatonin 3 Mg Tablet) 6 mg PO BEDTIME PRN PRN Reason: Insomnia Last Admin: 05/24/25 01:49 Dose: 6 mg Documented By: TIFFANY Melatonin (Melatonin 3 Mg Tablet) 6 mg PO BEDTIME [facility] Last Admin: 05/26/25 20:23 Dose: 6 mg Documented By: ATILIO Multivitamins/Vitamin C (Multivitamin Tablet) 1 tab PO DAILY [facility] Last Admin: 05/27/25 08:40 Dose: 1 tab Documented By: RADHA Non-Formulary Medication (Donepezil) 23 mg PO BEDTIME [facility] Olanzapine (Olanzapine 2.5 Mg Tablet) 2.5 mg PO BID [facility] Last Admin: 05/27/25 08:40 Dose: 2.5 mg Documented By: RADHA Olanzapine (Olanzapine 5 Mg Tablet) 5 mg PO BID PRN PRN Reason: agitation/restlessness Last Admin: 05/24/25 15:42 Dose: 5 mg Documented By: JUAN PABLO Sertraline HCl (Sertraline Hcl 100 Mg Tablet) 100 mg PO DAILY [facility] Last Admin: 05/27/25 08:40 Dose: 100 mg Documented By: RADHA Sodium Chloride (0.9 % Sodium Chloride Flush 3 Ml Syringe) 3 ml IVFLUSH QSHIFT [facility] Last Admin: 05/27/25 08:42 Dose: 3 ml Documented By: RADHA Trazodone HCl (Trazodone Hcl 25 Mg Halftab) 25 mg PO BEDTIME [facility] Last Admin: 05/26/25 20:23 Dose: 25 mg Documented By: ATILIO Labs 05/23/25 09:13 05/24/25 06:13 Microbiology Microbiology Results: Microbiology 05/25/25 Unknown Urine Culture - Final Urine clean catch - Clean Catch Midstream No growth. Assessment and Plan (1) Urinary tract infection: Status: Acute (2) Altered mental status: Status: Acute Plan 89-year-old female with a history of dementia, anxiety, hyperlipidemia, hypertension, mood disorder history of psychotic disturbance who was sent on section 12 from [facility] due to combative behavior Acute encephalopathy. Improving no obvious source h/o dementia - appears to have mood disorder and h/o psychotic d/o based on chart no focal neurological deficits. no fever, or wbc count to indicate infection [facility] records reviewed urine culture from 05/21 is negative Mild hypernatremia (na 146 and mild transaminitis) does not explain reported change in behavior UA, full drug screen and blood cultures neg, brain CT no acute abnormality, B12 500, folate 7.9, TSH 0.75 if all negative ?progression of dementia or psychiatric illness brought in on section 12>care team eval rec psych consult for disposition Mild hypernatremia follow BMP transaminitis trend LFTs dementia/mood Continue sertraline, trazodone, doxepin, denepezil HTN carvedilol HLD statin dvt ppx - lovenox code status - MOLST form DNR/DNI Quality Stroke Does the patient have a stroke diagnosis?: No VTE Prior VTE?: No VTE Risk Level:: Medical - moderate - high VTE Device Contraindication: N/A - Device Ordered VTE Drug Contraindication: N/A - Med Ordered
--- NOTE | 2025-05-27 12:01 | P.CDIM_ITS ---
PROVIDER RESPONSE TEXT: To clarify, the appropriate diagnosis supported by the clinical indicators: Encephalopathy due to other etiology QUERY TEXT: PHYSICIAN'S DOCUMENTATION REQUEST Date of Query: 05/26/2025 09:40 AM EDT Patient Name: Shari Bowles Admit Date: 05/23/2025 Dear Bailey Harrison [employer], A review of the medical record indicates additional documentation may be needed. Please review below and update the documentation accordingly. Clinical Indicators: Progress note 05/25/25 - Acute encephalopathy Hypernatremia - sodium 146 H Arrived with altered mental status, behavioral concerns, just discharged from [facility] with UTI. Fluids, ED Clinical impression: UTI Dementia, mood Based on the information above, please further specify, in the Progress Notes, the known or suspected type of the documented encephalopathy, if known: Metabolic Toxic Toxic metabolic Hypertensive Encephalopathy due to other etiology Other (explain) Clinically unable to determine (explain) Thank you, Madalyn Aguilera, CCS, CDIS Use of terms such as suspected, likely, concern for, or probable (associated with a specific diagnosis that is being evaluated, monitored, or treated as if it exists) are acceptable and can be coded in the inpatient setting, when documented at the time of discharge. Please use your independent medical judgment in providing your response. THIS QUERY IS PART OF THE PERMANENT MEDICAL RECORD
[2025-05-27 15:22] VITALS: BP 173/77; PULSE 62; RESP 20; TEMP 36.3; O2SAT 99
--- NOTE | 2025-05-27 17:34 | P.CNPS_ITS ---
History of Present Illness Date of Service: 05/27/25 Chief Complaint: encephalopathy Reason for Consult: ?should be all set to be discharged after medically clear. Requesting physician: Bailey Harrison Discussed with referring provider: Yes Sources of Information: patient interviewed and crisis/core team assessment reviewed HPI Narrative: 89-year-old female history of dementia presents from the [facility] on a section 12 for combative behavior, altered mentation Patent seen again as FLU to see if she is safe to discharged back to [facility] unit. Patient was seen on 05/23/25. Stated on Zyprexa 2.5mg BID with PRN 5mg BID for agitation and Ativan 0.5mg q8hrs PRN for severe anxiety. Per chart review, patient only received PRN Ativan and Zyprxa 5mg PRN once since 05/24. Mood is more stable, less anxious, less overwhelmed, no agitation, no behaviors. Patient has question why there is a person in her room all the time (sitter), she asked the sitter to be out of the room before asking that questions. Explained to patient that just for her own safety and extra help when she needs and prevent fall risk. Patient is forgetful and thinks she will return home in [place]. Case discuss with the attedning and patient is clear to discharge by tomorrow. Past Psychiatric History: Denies. However, poor historian Deferred to medical provider/team Review of Systems Review of Systems No SOB or coughing. No breathing problems during 1-1 assessment. [facility] Medical History Anxiety HLD (hyperlipidemia) HTN (hypertension) Dementia Family History: Not able to obtain. She reports her parents are still alive. they are both 88-89 years old . Denies having siblings. 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 Substance History: Not discuss Trauma History: not discuss Diagnostics Vital Signs (24Hr): Vital Signs - 24 hr 05/26/25 19:08 05/26/25 20:24 05/27/25 05:55 Temperature 97.5 F 97.9 F Pulse Rate 57 64 54 Respiratory Rate 18 18 Blood Pressure 125/67 174/80 H 155/74 H Pulse Oximetry 97 95 Oxygen Delivery Method Room Air Room Air 05/27/25 08:00 08/19/25 15:22 Temperature 96.8 F 97.3 F Pulse Rate 54 62 Respiratory Rate 17 20 Blood Pressure 155/68 H 173/77 H Pulse Oximetry 96 99 Oxygen Delivery Method Room Air Room Air BMI result Body Mass Index 22.6 Labs 05/23/25 09:13 05/24/25 06:13 Mental Status Exam Mental Status Exam Narrative: Patient is alert and awake. She is forgetful. She reports feeling anxious. Do not appear to be psychotic or making any delusional statements. Speech is spontaneous, WN, no pressure. Hair is kempt. insight is fair and judgment fair appropriate to age. She is calm. No agitation irritable mood. No safety concerns. On fall risk, Sitter at bedside Medications Medications Current Medications Acetaminophen (Acetaminophen 325 Mg Tablet) 650 mg PO Q6H PRN PRN Reason: Pain, Mild 1-3,fever,headache Atorvastatin Calcium (Atorvastatin Calcium 10 Mg Tablet) 10 mg PO DAILY [facility] Last Admin: 05/27/25 08:40 Dose: 10 mg Calcium Carbonate (Calcium Carbonate 750 Mg Tab.Chew) 750 mg PO Q4H PRN PRN Reason: Heartburn Carvedilol (Carvedilol 3.125 Mg Tablet) 3.125 mg PO BID [facility]; Protocol Last Admin: 05/27/25 08:40 Dose: 3.125 mg Docusate Sodium (Docusate Sodium 100 Mg Capsule) 100 mg PO BID [facility] Last Admin: 05/27/25 08:40 Dose: 100 mg Doxepin HCl (Doxepin Hcl 10 Mg Capsule) 20 mg PO BEDTIME [facility] Last Admin: 05/26/25 20:23 Dose: 20 mg Enoxaparin Sodium (Enoxaparin Sodium 40 Mg/0.4 Ml Syringe) 40 mg SUBCUT Q24H [facility] Last Admin: 05/26/25 16:12 Dose: 40 mg Gabapentin (Gabapentin 100 Mg Capsule) 100 mg PO TID [facility] Last Admin: 05/27/25 14:09 Dose: 100 mg Lisinopril (Lisinopril 5 Mg Tablet) 5 mg PO DAILY [facility]; Protocol Magnesium Hydroxide (Milk Of Magnesia 30 Ml Oral.Susp) 30 ml PO DAILY PRN PRN Reason: Constipation Melatonin (Melatonin 3 Mg Tablet) 6 mg PO BEDTIME PRN PRN Reason: Insomnia Last Admin: 05/24/25 01:49 Dose: 6 mg Melatonin (Melatonin 3 Mg Tablet) 6 mg PO BEDTIME [facility] Last Admin: 05/26/25 20:23 Dose: 6 mg Multivitamins/Vitamin C (Multivitamin Tablet) 1 tab PO DAILY [facility] Last Admin: 05/27/25 08:40 Dose: 1 tab Non-Formulary Medication (Donepezil) 23 mg PO BEDTIME [facility] Olanzapine (Olanzapine 2.5 Mg Tablet) 2.5 mg PO BID [facility] Last Admin: 05/27/25 08:40 Dose: 2.5 mg Olanzapine (Olanzapine 5 Mg Tablet) 5 mg PO BID PRN PRN Reason: agitation/restlessness Last Admin: 05/24/25 15:42 Dose: 5 mg Sertraline HCl (Sertraline Hcl 100 Mg Tablet) 100 mg PO DAILY [facility] Last Admin: 05/27/25 08:40 Dose: 100 mg Sodium Chloride (0.9 % Sodium Chloride Flush 3 Ml Syringe) 3 ml IVFLUSH QSHIFT [facility] Last Admin: 05/27/25 14:09 Dose: 3 ml Trazodone HCl (Trazodone Hcl 25 Mg Halftab) 25 mg PO BEDTIME [facility] Last Admin: 05/26/25 20:23 Dose: 25 mg Allergies Allergies Allergy/AdvReac Type Severity Reaction Status Date / Time No Known Allergies Allergy Verified 05/23/25 08:12 Assessment & Plan Assessment & Plan (1) Aggression: Status: Acute Code(s): R46.89 - Other symptoms and signs involving appearance and behavior Plan 89-year-old female history of dementia presents from the [facility] on a section 12 for combative behavior, altered mentation Patent seen again as FLU to see if she is safe to discharged back to [facility]. Patient was seen on 05/23/25. Stated on Zyprexa 2.5mg BID with PRN 5mg BID for agitation and Ativan 0.5mg q8hrs PRN for severe anxiety. Per chart review, patient only received PRN Ativan and Zyprxa 5mg PRN once since 05/24. Mood is more stable, less anxious, less overwhelmed, no agitation, no behaviors. Patient has question why there is a person in her room all the time (sitter), she asked the sitter to be out of the room before asking that questions. Explained to patient that just for her own safety and extra help when she needs and prevent fall risk. Patient is forgetful and thinks she will return home in [place]. Case discuss with the attending and patient is clear to discharge by tomorrow. Plan: Aggressive/agitation has resolved. Patient could be at baseline. Continue with current medication included Zyprexa 2.5mg BID which was added on 05/23. Will discontinue Zyprexa PRN and Ativan PRN upon discharge. Per Attending, will be discharge back to [facility] tomorrow. Medically clear. Total time managing care of this patient today ____ minutes. Patient educated on: medication risk/benefits Informed Consent: further education needed (d/t dementia. Need reinforce )
--- NOTE | 2025-05-27 18:01 | PC.NURSE ---
JERRY Au made aware pt BP continues to be elevated, lisinopril ordered and given per DEC.
[2025-05-27 19:11] VITALS: BP 182/78; PULSE 60; RESP 16; TEMP 36.2; O2SAT 96
[2025-05-27] MEDS: traZODone HCL 25 MG HALFTAB PO (20:20)
[2025-05-28 04:00] VITALS: BP 125/60; PULSE 54; RESP 18; TEMP 36.2; O2SAT 96
--- NOTE | 2025-05-28 04:54 | PC.NURSE ---
Patient less anxious and no agitation noted she was asking if she was leaving today but she has no clothes to wear . But explained it was getting dark outside and we will prepare her clothes tomorrow in the morning she was ok with that. no PRN Zyprexa needed only scheduled meds given .
--- NOTE | 2025-05-28 07:38 | P.DS_ITS ---
DS: Providers Provider Date of Service: 05/28/25 Date of admission: 05/23/25 16:19 Date of discharge: 05/28/25 Primary care physician: Sherley Ramirez MD Consults: 05/23/25 08:26 ED CARE Team Crisis Consult Stat Comment: Reason for consultation: Aggressive, combative. 05/23/25 16:44 Consult to Psychiatry Routine Consulting Provider: [facility] Reason for consultation: h/o dementia, mood d/o; here with increasing behaviors 05/26/25 16:38 Inpt CARE Team Crisis Consult Routine Comment: Reason for consultation: medically clear 05/27/25 07:22 Consult to Psychiatry Routine Consulting Provider: [facility] Reason for consultation: care team request for disposition DS: Diagnosis Discharge Diagnosis (1) Aggression: Status: Acute DS: Summary Hospital Course Hospital Course: History and physical as per admitting provider. This is an 89-year-old female with a history of dementia who was sent in from the [facility] on a section 12 due to combative behavior. She was seen at [facility] 2 days ago and diagnosed with a UTI and discharged on Keflex. In the emergency department she is afebrile, lab work reveals no leukocytosis. Chemistry does reveal mild hypernatremia with a sodium of 146, mild transaminitis with continue AST 55, ALT 63. Alcohol level less than 10. In the emergency department she received Valium and Haldol and was also started on IV ceftriaxone due to concern over worsening urinary tract infection. UA has not been collected at this time. Patient was calm and cooperative upon my exam, she knows her name and as she is in the hospital but is unable to provide any history regarding her health or why she is here. Medical history was obtained from her chart sent from the [facility] which indicates a history of hypertension, hyperlipidemia, anxiety, dementia, mood disorder, delirium unspecified, psychotic disturbance unspecified. She denies any specific complaints including dysuria, abdominal pain, nausea, vomi ting, fever, chills. She has not remember going to [facility] or what happened while she was there. She did not know that she has been recently diagnosed with a UTI or that she has been taking antibiotics. 89-year-old woman from long-term care facility presenting with acute encephalopathy. No obvious source of infection noted she does have a history of dementia. UA, drug screen, blood cultures, brain CT all normal. Possibly this is progression of her dementia or psychiatric illness. Brought in on a section 12, seen by care team and psychiatric team both recommended back to long-term care facility with no need for inpatient level of care for psychiatry. She did have some adjustments in her medications and was started on Zyprexa 2.5 mg twice daily and she will continue her other medications that she was on including sertraline and trazodone. Hypertension. Blood pressure has been elevated during hospitalization. Lisinopril 5 mg was added with good effect. She will continue this along with her carvedilol. Mild hyponatremia. Resolved Mild transaminitis. Very mild no need to follow Hyperlipidemia. Continue statin Time Attestation Discharge Coordination Time (in mins): 40 Quality: Safe Use of Opioids Does Pt have an Active Cancer Diagnosis on the Problem List?: No Quality: Stroke Does the patient have a stroke diagnosis?: No Physical Exam Exam: Exam: Appearing in no acute distress head is normocephalic atraumatic eyes pupils are PERRLA sclera is anicteric mouth throat mucous membranes are intact and moist neck is supple no lymphadenopathy, no JVD noted lung sounds are clear to auscultation heart regular rate rhythm, clear S1, S2 positive bowel sounds, abdomen is soft, nontender neuro patient is alert, intermittent confusion Vital Signs: Vital Signs: Last Vital Signs Temp 97.1 F 05/28/25 04:00 Pulse 54 05/28/25 04:00 Resp 18 05/28/25 04:00 BP 125/60 05/28/25 04:00 Pulse Ox 96 05/28/25 04:00 O2 Del Method Room Air 05/28/25 04:00 BMI result Body Mass Index 22.6 DS: Data Data Completed and Pending Labs on day of discharge: Preliminary micro results at discharge 05/23/25 16:48 Blood Culture - Preliminary Blood - Venous No growth after 48 hours. 05/23/25 15:29 Blood Culture - Preliminary Blood - Venous No growth after 48 hours. Discharge Plan Discharge Anticipated Discharge Date/Time: 05/28/25 07:35 Patient Disposition: Xfer LTC Discharge Diagnosis: Acute encephalopathy Hypernatremia Transaminitis Referrals: Sherley Ramirez MD [Primary Care Provider, Medical] - 1 Week Discharge Medications: New olanzapine 2.5 mg Tablet 2.5 mg PO BID Qty: 60 0RF lisinopril 5 mg Tablet 5 mg PO DAILY Qty: 30 0RF Protocol: Hold for SBP< HOLD for SBP < : 90 Continued multivitamin Tablet 1 tab PO DAILY trazodone 50 mg tablet 25 mg PO BEDTIME atorvastatin 10 mg tablet 10 mg PO DAILY alendronate 70 mg tablet 70 mg PO PONCE sertraline 100 mg tablet 100 mg PO DAILY melatonin 3 mg tablet 6 mg PO BEDTIME doxepin 10 mg capsule 20 mg PO BEDTIME carvedilol 3.125 mg tablet 3.125 mg PO BID docusate sodium [Colace] 100 mg capsule 100 mg PO BID gabapentin 100 mg capsule 100 mg PO TID calcium carbonate-vitamin D3 [Calcium 600 + D(3)] 600 mg-5 mcg (200 unit) capsule 1 cap PO BID donepezil 23 mg tablet 23 mg PO BEDTIME Discharge Orders: Discharge Order (Routine); Ordered 05/28/25 Ordered By: Bailey Harrison Diet: Advance to usual diet Activity on Discharge: As tolerated Stand Alone Forms: Patient Portal Discharge page Print Language: [place] Care Plan Goals: No obvious sign found for acute encephalopathy, no infectious source, medications adjusted during hospitalization Health Concerns: Acute encephalopathy Hypernatremia Transaminitis Plan of Treatment: Follow up with primary care provider as needed Take all medications as prescribed Assessment: See discharge summary
[2025-05-28 07:50] VITALS: BP 163/67; PULSE 55; RESP 18; TEMP 36.2; O2SAT 95
[2025-05-28 07:54] VITALS: PULSE 61
--- NOTE | 2025-05-28 13:50 | MHC.CM.PN ---
ARTURO SPOKE TO DINO AT THE [facility] THIS MORNING, SHE WAS PROVIDED UPDATES AND INFORMED THE PT WAS CLEARED TO DC SHE DID EXPRESS SOME CONCERN THAT THE PT WAS NOT GOING TO [facility], HOWEVER ARTURO INFORMED HER PT WAS CLEARED BY BOTH CARE TEAM AND PSYCH PROVIDER AND STARTED ON BID ZYPREXA SHE WAS ALSO INFORMED THERE HAVE BEEN NO BEHAVIORS IN THE LAST 48 HOURS SHE REPORTS THE PT WILL NEED HER MEDS DELIVERED BY [facility] AND WANTS TO BE SURE THEY WILL ARRIVE TODAY ARTURO CALLED [facility], THEY CONFIRMED THEY WILL HAVE PTS MEDS AT THE [facility] TODAY ARTURO ATTEMPTED TO CALL DINO BACK TO INFORM HER OF THE ABOVE AND ARRANGE A DC TIME, HOWEVER SHE WAS UNAVAILABLE, MESSAGE LEFT
[2025-05-28 15:49] VITALS: BP 166/69; PULSE 58; RESP 18; TEMP 36.3; O2SAT 96
--- NOTE | 2025-05-28 16:11 | HO.PM.IMPN ---
Subjective Subjective Date of Service: 05/28/25 Review of Systems Follow up encephalopathy confusion on and off Ambulating with her walker Physical Exam Exam: Exam: Appearing in no acute distress lung sounds are clear to auscultation heart regular rate rhythm, clear S1, S2 positive bowel sounds, abdomen is soft, nontender neuro patient is alert x3, no focal deficits Vital Signs: Vital Signs: Last Vital Signs Temp 97.3 F 05/28/25 15:49 Pulse 58 05/28/25 15:49 Resp 18 05/28/25 15:49 BP 166/69 H 05/28/25 15:49 Pulse Ox 96 05/28/25 15:49 O2 Del Method Room Air 05/28/25 15:49 BMI result Body Mass Index 22.6 Objective Data Active Medications Acetaminophen (Acetaminophen 325 Mg Tablet) 650 mg PO Q6H PRN PRN Reason: Pain, Mild 1-3,fever,headache Atorvastatin Calcium (Atorvastatin Calcium 10 Mg Tablet) 10 mg PO DAILY [facility] Last Admin: 05/28/25 07:54 Dose: 10 mg Documented By: NII Calcium Carbonate (Calcium Carbonate 750 Mg Tab.Chew) 750 mg PO Q4H PRN PRN Reason: Heartburn Carvedilol (Carvedilol 3.125 Mg Tablet) 3.125 mg PO BID [facility]; Protocol Last Admin: 05/28/25 07:54 Dose: 3.125 mg Documented By: NII Docusate Sodium (Docusate Sodium 100 Mg Capsule) 100 mg PO BID [facility] Last Admin: 05/28/25 07:56 Dose: 100 mg Documented By: NII Doxepin HCl (Doxepin Hcl 10 Mg Capsule) 20 mg PO BEDTIME [facility] Last Admin: 05/27/25 20:20 Dose: 20 mg Documented By: ALYSON Enoxaparin Sodium (Enoxaparin Sodium 40 Mg/0.4 Ml Syringe) 40 mg SUBCUT Q24H [facility] Last Admin: 05/27/25 17:35 Dose: 40 mg Documented By: RADHA Gabapentin (Gabapentin 100 Mg Capsule) 100 mg PO TID [facility] Last Admin: 05/28/25 07:54 Dose: 100 mg Documented By: NII Lisinopril (Lisinopril 5 Mg Tablet) 5 mg PO DAILY [facility]; Protocol Last Admin: 05/28/25 07:56 Dose: 5 mg Documented By: NII Magnesium Hydroxide (Milk Of Magnesia 30 Ml Oral.Susp) 30 ml PO DAILY PRN PRN Reason: Constipation Melatonin (Melatonin 3 Mg Tablet) 6 mg PO BEDTIME PRN PRN Reason: Insomnia Last Admin: 05/24/25 01:49 Dose: 6 mg Documented By: TIFFANY Melatonin (Melatonin 3 Mg Tablet) 6 mg PO BEDTIME [facility] Last Admin: 05/27/25 20:20 Dose: 6 mg Documented By: ALYSON Multivitamins/Vitamin C (Multivitamin Tablet) 1 tab PO DAILY [facility] Last Admin: 05/28/25 07:56 Dose: 1 tab Documented By: NII Non-Formulary Medication (Donepezil) 23 mg PO BEDTIME [facility] Olanzapine (Olanzapine 2.5 Mg Tablet) 2.5 mg PO BID [facility] Last Admin: 05/28/25 07:54 Dose: 2.5 mg Documented By: NII Olanzapine (Olanzapine 5 Mg Tablet) 5 mg PO BID PRN PRN Reason: agitation/restlessness Last Admin: 05/24/25 15:42 Dose: 5 mg Documented By: JUAN PABLO Sertraline HCl (Sertraline Hcl 100 Mg Tablet) 100 mg PO DAILY [facility] Last Admin: 05/28/25 07:54 Dose: 100 mg Documented By: NII Sodium Chloride (0.9 % Sodium Chloride Flush 3 Ml Syringe) 3 ml IVFLUSH QSHIFT [facility] Last Admin: 05/28/25 07:58 Dose: Not Given Documented By: NII Non-Admin Reason: No Access Trazodone HCl (Trazodone Hcl 25 Mg Halftab) 25 mg PO BEDTIME [facility] Last Admin: 05/27/25 20:20 Dose: 25 mg Documented By: ALYSON Labs 05/23/25 09:13 05/24/25 06:13 Assessment and Plan (1) Urinary tract infection: Status: Acute (2) Altered mental status: Status: Acute Plan 89-year-old female with a history of dementia, anxiety, hyperlipidemia, hypertension, mood disorder history of psychotic disturbance who was sent on section 12 from [facility] due to combative behavior Acute encephalopathy. Resolved no obvious source h/o dementia - appears to have mood disorder and h/o psychotic d/o based on chart no focal neurological deficits. no fever, or wbc count to indicate infection [facility] [place] reviewed urine culture from 05/21 is negative Mild hypernatremia (na 146 and mild transaminitis) does not explain reported change in behavior UA, full drug screen and blood cultures neg, brain CT no acute abnormality, B12 500, folate 7.9, TSH 0.75 if all negative ?progression of dementia or psychiatric illness brought in on section 12>care team eval rec psych consult for disposition>no need for IPLOC Mild hypernatremia follow BMP transaminitis trend LFTs dementia/mood Continue sertraline, trazodone, doxepin, denepezil HTN carvedilol HLD statin dvt ppx - lovenox code status - MOLST form DNR/DNI Quality Stroke Does the patient have a stroke diagnosis?: No VTE Prior VTE?: No VTE Risk Level:: Medical - moderate - high VTE Device Contraindication: N/A - Device Ordered VTE Drug Contraindication: N/A - Med Ordered
--- NOTE | 2025-05-28 18:16 | PC.NURSE ---
Patient nice and pleasant throughout shift, joking with nursing staff, ambulated multiple times throughout unit. Patient easily redirectable. Took all medications with no issues. Sitter remains at bedside for high fall risk and redirection.
[2025-05-28 19:29] VITALS: BP 117/69; PULSE 63; RESP 18; TEMP 36.3; O2SAT 100
[2025-05-28] MEDS: traZODone HCL 25 MG HALFTAB PO (19:52)
[2025-05-29 03:21] VITALS: BP 115/69; PULSE 64; RESP 18; TEMP 36.4; O2SAT 99
[2025-05-29 07:29] VITALS: BP 136/62; PULSE 55; RESP 18; TEMP 36; O2SAT 95
--- NOTE | 2025-05-29 08:43 | MHC.CM.PN ---
PT UNABLE TO DC BACK TO [facility] YESTERDAY THEIR NURSING STAFF WAS ONLY THERE UNTIL 1730 HOURS AND TRANSPORT WAS UNAVAILABLE BEFORE 1800 HOURS, THERE WAS ALSO CONCERN THAT PT MAY NOT DO WELL WITH AN EVENING TRANSITION. BLS TRANSPORT IS BOOKED FOR 1100 HOURS TODAY, VM MESSAGE LEFT FOR DINO, BED SETTER OF THE [facility], BETY NOTIFIED VIA T/C
[2025-05-29 11:46] VITALS: BP 140/65; PULSE 54; RESP 18; TEMP 36.2; O2SAT 97
--- NOTE | 2025-05-29 11:51 | PC.NURSE ---
Patient sleeping most of the morning, attempted to wake up, patient became very angry and yelled at nurse to get out of here . Sitter at bedside. Nurse left room and patient remained sleeping. Multiple attempts made to wake up patient and administer medications and patient would yell at nurse to go away and just star at nurse without further conversing. Another nurse attempted to medicate patient and patient refused medications. Patient remained resting in bed. Ambulance arrived to put patient on stretcher, attempt was made again to medicate patient and patient continued refused medications. Patient was slid onto stretcher with ease and no resistance from patient. Patient's belongings bag was handed to ambulance personal.
== END 2025-05-29 12:00 | DRG 71 ==
LOC: HO.ED 16:12 → HO.EDOVER 16:24 → HO.S3 19:28
PROVIDERS: Physician Assistant; Admitting Provider Physician Assistant Medical; Emergency Provider Emergency Medicine; PCP Internal Medicine; Visit Provider Physician Assistant Medical
DX: G93.49 Other encephalopathy (principal); E87.0 Hyperosmolality and hypernatremia; F03.911 Unspecified dementia, unspecified severity, with agitation; I10 Essential (primary) hypertension; R74.01 Elevation of levels of liver transaminase levels; E78.5 Hyperlipidemia, unspecified; Z79.899 Other long term (current) drug therapy
CPT/HCPCS: 36415; 70450; 80048; 80053; 80076; 80307; 81001; 81003; 82607; 82746; 83605; 83735; 84443; 85025; 87040; 87086; 93005; 99285; J0696; J1200; J1630; J1650; J2359; J3360; S9485

== ENCOUNTER → 2025-05-23 08:26 | Outpatient (BNV) | payer OTHER, SELFPAY | PROVIDERS: Admitting Provider Physician Assistant Medical; Emergency Provider Emergency Medicine; Visit Provider Internal Medicine Cardiovascular Disease | DX: R00.1 Bradycardia, unspecified (principal) | CPT/HCPCS: 93010 ==

== ENCOUNTER 2025-05-23 16:19 | Outpatient (BNV) | payer OTHER, SELFPAY | END 2025-05-23 16:50 | PROVIDERS: Admitting Provider Physician Assistant Medical; Emergency Provider Emergency Medicine; Visit Provider Radiology Diagnostic Radiology | DX: Z98.2 Presence of cerebrospinal fluid drainage device (principal) | CPT/HCPCS: 70450 ==

== ENCOUNTER 2025-05-23 16:19 | Outpatient (BNV) | payer OTHER, SELFPAY | END 2025-05-25 13:06 | PROVIDERS: Admitting Provider Physician Assistant Medical; Emergency Provider Emergency Medicine; Visit Provider Radiology Diagnostic Radiology | DX: Z04.3 Encounter for examination and observation following other accident (principal) | CPT/HCPCS: 70450 ==

== ENCOUNTER → 2025-05-23 16:19 | Outpatient (BNV) | payer OTHER, SELFPAY | PROVIDERS: Admitting Provider Physician Assistant Medical; Emergency Provider Emergency Medicine; Visit Provider Nurse Practitioner Psychiatric/Mental Health | DX: F03.918 Unspecified dementia, unspecified severity, with other behavioral disturbance (principal) | CPT/HCPCS: 99232 ==

== ENCOUNTER → 2025-05-23 16:19 | Outpatient (BNV) | payer OTHER, SELFPAY | PROVIDERS: Admitting Provider Physician Assistant Medical; Emergency Provider Emergency Medicine; Visit Provider Nurse Practitioner Acute Care | DX: N39.0 Urinary tract infection, site not specified (principal); R41.82 Altered mental status, unspecified | CPT/HCPCS: 99223; 99232 ==

== ENCOUNTER 2025-08-04 05:29 | Outpatient (REF) | payer OTHER, SELFPAY ==
--- OUTSIDE RECORDS SUMMARY | 2025-08-04 05:31 | XMS_ITS | Data Portability ---
Author Organization [place] [facility] Address [address] [place] [phone] Care Team Providers Care Storage Management Consultant Name Role Phone HERNANDEZAURORA BLAKE Primary Care Provider Assessment Encounter Date Assessment Date Assessment LastModified by Organization Details LastModified Time 04/05/2019 04/05/2019 Overview/History : 83 yo female resident of assisted living facility with PMH of HTN, dementia, osteoarthritis who presents with symptoms of productive cough, nasal congestion, red eyes and eye discharge. Patient states that her symptoms started exactly 24h ago. Patient reports that she was at her usual states of anusha until the onset of symptoms; she reports her symptoms as very severe ans states that she is very ill. Patient reports that she can't breath because her nose is very congested; she feels like she has fever but is not sure because she does not have a thermometer. Patient also states that she is very tired. Denied eye pain or light sensitivity, vision changes, ear pain or discharge; sinus pain or pressure, sore throat, dizziness, headache, shortness of breath, chest pain or tightness, nausea, vomiting, abdominal pain. Exam: elderly female who appears tired and anxious but otherwise well, no acute distress, non-toxic appearance; alert and oriented to self and place at baseline dementia; ambulates independently PERRL, EOMI, conjunctiva is erythematous bilaterally; visual acuity is 20/20 with corrective lenses in both eyes; no sensitivity to light noted; yellow crusty discharge present on eyelids bilaterally Mucous membranes are pink and moist without lesions; Oropharynx without erythema or exudate. Nasal mucosa is pink and moist; nasal passages are patent bilaterally; no tenderness on palpation over sinuses; ear canals are clear without erythema or discharge bilaterally; TMs are pearly castañeda, non-bulging, non-erythematous; Heart sounds are regular rate and rhythm; no audible murmurs, rubs, or gallops No signs of respiratory distress. Lungs are clear to auscultation in all fileds DDx considered, but not limited to: bacterial conjunctivitis viral conjunctivitis URI sinusitis bronchitis pneumonia Work up/Results: chest xray - pending rapid flu - negative Plan/Discussion: - based on clinical presentation symptoms are most likely due to URI and co-occurrent bacterial conjunctivitis - chest xray pending to r/o pneumonia - start erythromycin ophthalmic TID X7d - flonase nasal spray for nasal congestion - tessalon perles 100mg PO TID PRN for cough - acetaminophen 650mg PO q6h prn for fever; first dose given on scene - advised when to seek immediate medical attention/911/ED - updated facility nurse about the visit - follow up with PCP as needed In order to obtain further information and compare any laboratory results/values, I have accessed patient records on the [employer]. This information was pertinent in my medical decision making today. Time On Scene with Patient: 00:33:34 [email or web address] Not available 04/08/2019 12:10:59 Plan of Treatment Reminders Order Date Submit Date Provider Last Modified By Organization Details Last Modified Time Details Appointments None recorded. Lab rapid flu (A+B) 2018 019 alvarado [facility], [address] [place] [address], [phone], 9 21:25:33 Referral None recorded. Procedures None recorded. Surgeries None recorded. Imaging XR, chest, 2 view 2018 019 [facility] ([facility] [address] [place] [address], [place], [address], 9 15:28:38 Medication Orders acetaminop hen 325 mg tablet 2018 019 [id number], [address] [place], [address], 9 21:13:37 acetaminop hen 325 mg tablet 2018 019 [id number], [address] [place], [address], 9 21:13:40 Tessalon Perles 100 mg capsule 2018 019 [id number], [address] [place], [address], 9 21:13:40 erythromyc in 5 mg/gram (0.5 %) eye ointment 2018 019 [id number], [address] [place], [address], 9 21:13:42 Flonase Allergy Relief 50 mcg/actuat ion nasal spray,susp ension 2018 019 [id number], [address] [place], [address], 9 10:05:55 Patient TargetsNo targets recorded. Patient Instructions Encounter Date Encounter Id Patient Instructions Last Modified By Organization Details Last Modified Time 04/05/2019 [id number] pinkeye: care instructions [email or web address] Not available 04/05/2019 21:13:37 upper respirator y infection (cold): care instructions nyuzych Not available 04/05/2019 21:13:38 YOU WERE SEEN FO R COLD SYMPTOMS YOUR FLU TEST WAS NEGATIVE YOU HAVE UPPER RESPIRATORY INFECTION WE ORDERED CHEST XRAY TO RULE OUT PNEUMONIA; WE WILL NOTIFY YOU ABOUT THE RESULTS YOU ALSO HAVE BACTERIAL CONJUCTIVITIS (INFECTION IN YOUR EYES) MEDICATIONS WERE SENT TO YOUR PHARMACY PLEASE, TAKE DIRECTED FOLLOW UP WITH YOUR PRIMARY CARE DOCTOR NEEDED SEEK IMMEDIATE MEDICAL ATTENTION OR CALL 911 IF YOUR SYMPTOMS WORSEN OR IF YOU DEVELOP ANY OTHER CONCERNING SYMPTOMS Your Care Instructions Pinkeye is redness and swelling of the eye surface and the conjunctiva (the lining of the eyelid and the covering of the white part of the eye). Pinkeye is also called conjunctivitis. Pinkeye is often caused by infection with bacteria or a virus. Dry air, allergies, smoke, and chemicals are other common causes. Pinkeye often clears on its own in 7 to 10 days. Antibiotics only help if the pinkeye is caused by bacteria. Pinkeye caused by infection spreads easily. If an allergy or chemical is causing pinkeye, it will not go away unless you can avoid whatever is causing it. Follow-up care is a pabon part of your treatment and safety. Be sure to make and go to all appointments, and call your doctor if you are having problems. It's also a good idea to know your test results and keep a list of the medicines you take. How can you care for yourself at home? Wash your hands often. Always wash them before and after you treat pinkeye or touch your eyes or face. Use moist cotton or a clean, wet cloth to remove crust. Wipe from the inside corner of the eye to the outside. Use a clean part of the cloth for each wipe. Put cold or warm wet cloths on your eye a few times a day if the eye hurts. Do not wear contact lenses or eye makeup until the pinkeye is gone. Throw away any eye makeup you were using when you got pinkeye. Clean your contacts and storage case. If you wear disposable contacts, use a new pair when your eye has cleared and it is safe to wear contacts again. If the doctor gave you antibiotic ointment or eyedrops, use them as directed. Use the medicine for as long as instructed, even if your eye starts looking better soon. Keep the bottle tip clean, and do not let it touch the eye area. To put in eyedrops or ointment: Tilt your head back, and pull your lower eyelid down with one finger. Drop or squirt the medicine inside the lower lid. Close your eye for 30 to 60 seconds to let the drops or ointment move around. Do not touch the ointment or dropper tip to your eyelashes or any other surface. Do not share towels, pillows, or washcloths while you have pinkeye. When should you call for help? Call your doctor now or seek immediate medical care if: You have pain in your eye, not just irritation on the surface. You have a change in vision or loss of vision. You have an increase in discharge from the eye. Your eye has not started to improve or begins to get worse within 48 hours after you start using antibiotics. Pinkeye lasts longer than 7 days. Watch closely for changes in your health, and be sure to contact your doctor if you have any problems. [email or web address] Not available 04/05/2019 21:12:53 Reason for Referral None Reported. Results Created Date Observation Date Name Description Value Unit Range Abnormal Flag Note LastModifiedBy Organization Detail LastModifiedTime 04/05/2004/05/2019 rapid flu (A+B) Flu A negati ve Not Available [facility] [address] [place], [address], 04/05/2019 20:53:20 04/05/20 19 04/05/2019 rapid flu (A+B) Flu B negati ve Not Available [facility] [address] [place], [address], 04/05/2019 20:53:20 04/07/20 19 XR, chest , 2 view No observ ation record ed. [facility] ([facility]) [address], [place], [address], 04/08/2019 15:37:43 Result Notes None recorded. Medical Equipment None Reported. Allergies No known drug allergies Medications Name Sig Start Date Stop Date Status Note LastModified by Organization Details LastModified Time acetaminoph en 325 mg tablet Take 2 tablets every 6 hours by oral route for 10 days. 2018 active Not Available Not Available Not Avai lable cefuroxime axetil 250 mg tablet active Not Available Not Available No t Available donepezil 5 mg tablet active Not Available Not Available No t Available trazodone 50 mg tablet active Not Available Not Available Not Available atorvastati n 10 mg tablet active Not Available Not Available Not Available valsartan 160 mg-hydrochl orothiazide 12.5 mg tablet active Not Available Not Available Not Available simvastatin 10 mg tablet active Not Available Not Available Not Available Tessalon Perles 100 mg capsule Take 1 capsule 3 times a day by oral route for 7 days. 2018 active Not Available Not Available Not Avai lable erythromyci n 5 mg/gram (0.5 %) eye ointment APPLY 1 CM RIBBON INTO THE LOWER CONJUNCTI STEPHANIE SAC(S) IN THE AFFECTED EYE(S) BY OPHTHALMI C ROUTE 3 TIMES PER DAY 2018 active Not Available Not Available Not Avai lable hydrochloro thiazide 25 mg tablet active Not Available Not Available No t Available risperidone 0.5 mg tablet active Not Available Not Available Not Available escitalopra m 10 mg tablet 04/05 completed Not Available Not Available Not Available Flonase Allergy Relief 50 mcg/actuati on nasal spray,suspe nsion [place] 1 spray every day by intranasa l route. 2018 active Not Available Not Available Not Avai lable Vitals Date Recorded Body temperature Oxygen saturation Oxygen saturation in Arterial blood by Pulse oximetry Respiratory rate Heart rate Systolic And Diastolic Provider Name and Address Organization Details Last Updated DateTime 9 99.4 [degF] 97 % 97 % 22 /min 90 /min 182/94 mm[Hg] Not Available [facility] 9 20:50:19 Social History Question Answer Notes LastModified by Organizat ion Details LastModified Time Tobacco Smoking Status Never Smoker [facility] [address], [place], [address], [place] [facility] 04/08/2019 12:06:52 Within The Past 12 Months, Has It Happened That The Food You Bought Just Didn't Last And You Didn't Have Money To Get More. Normal Information not available 04/08/2019 Within The Past 12 Months, Have You Worried That Your Food Would Run Out Before You Got Money To Buy More. Yes Information not available 04/08/2019 Fall Risk: Do You Feel Unsteady When Standing Or Walking? No Information not available 04/08/2019 Marital Status nyyg Informatio n not available 04/08/2019 What Was The Date Of Your Most Recent Tobacco Screening? 04/08/2019 Information not available 05/02/2019 Sex: Unknown Functional Status None recorded. Mental Status None recorded. Family History Nothing Reported. Medical History Condition Response Diabetes N Coronary Artery Disease N Cancer N Stroke N Asthma N COPD N Depression N High Cholesterol N Pulmonary Embolism N Hypertension Y Kidney Disease N Gynecological HistoryNo gynecological history recorded. Obstetrics History GPAL:G 0 P 0 0 0 0 Past Encounters Encounter ID Performer Location Encounter Start Date Encounter Closed Date Diagnosis/Indication Diagnosis SNOMED-CT Code Diagnosis ICD10 Code Diagnosis IMO Codes Diagnosis Note [id number] [facility] [address] [place] [address] 04/05/2019 20:43:47 04/08/2019 19:06:39 Bacterial conjunctivitis 762825404 H10.9 Acute uppe r respiratory infection 86979745 J06.9 Fever 059010348 R50.9 Cough 06429773 R05 Health Concerns Section Related Observation LastModified by Organization Detai ls LastModified Time None Recorded Concern Status LastModified by Organization Details LastModified Time None Recorded Advance Directives Directive None Recorded Payers Insurance Date Sequence Insurance Name Policy Number Policy Macias Covered Member ID Macias Member ID Guarantor Name 04/10/2019 1 [facility] IN[facility]MNITY [facility]AN (INDEMNITY) [id number] Shari Bowles [id number] Shari Bowles 04/05/2019 1 *SELF PAY* Shari Bowles [id number] Shari Bowles Notes Date Note Type Note Provider Name and Address Organization Details Recorded Time 04/05/2019 text/html Mrs. Bowles is an 83 yo female new to and this provider who presents with symptoms of productive cough, nasal congestion, red eyes and eye discharge. Patient states that her symptoms started exactly 24h ago. Patient reports that she was at her usual states of anusha until the onset of symptoms; she reports her symptoms as very severe ans states that she is very ill. Patient reports that she can't breath because her nose is very congested; she feels like she has fever but is not sure because she does not have a thermometer. Patient also states that she is very tired.Denied eye pain or light sensitivity, vision changes, ear pain or discharge; sinus pain or pressure, sore throat, dizziness, headache, shortness of breath, chest pain or tightness, nausea, vomiting, abdominal pain.Comorbidities: HTN, dementia, osteoarthritis [facility] [address], [place], [address], [place] [facility] 04/08/2019 12:11:03 OBGyn Episode No OBEpisode recorded.
[2025-08-04 05:32] LABS: MANUAL DIFF FLAG NO
[2025-08-04 05:46] LABS: Hematocrit 38.4 % (37.0-47.0); Hemoglobin 12.5 g/dl (12.0-16.0); Imm Gran Abs Auto 0.04 X10*3/uL (0.00-0.03); Imm Gran Pct Auto 0.5 % (0.0-0.4); Lymphocytes Absolute Auto 1.3 X10*3/uL (1.2-4.9); Mean Corpuscular HGB Conc 32.6 g/dl (31.0-35.0); Mean Corpuscular Hemoglobin 30.6 pg (27.0-33.0); Mean Corpuscular Volume 94.1 fL (80.0-98.0); NRBC Abs Auto 0.000 X10*3/uL (0.0-0.012); NRBC Pct Auto 0.0 /100WBC (0.0-0.2); Platelet Count 223 X10*3/uL (160-400); Red Blood Count 4.08 X10*6/uL (4.20-5.50); White Blood Count 8.6 X10*3/uL (4.8-10.8)
[2025-08-04 06:06] LABS: Total Hemoglobin (HGBA1C) 3277.2242 umol/L
[2025-08-04 06:13] LABS: Alanine Aminotransferase 22 U/L (0-31); Albumin Level 3.7 g/dL (3.5-5.0); Alkaline Phosphatase 97 U/L (39-117); Anion Gap 13 (12-20); Aspartate Amino Transferase 22 U/L (5-31); Blood Urea Nitrogen 27 mg/dL (9-16); Calcium 9.4 mg/dL (8.4-10.2); Carbon Dioxide 24 mmol/L (22-29); Chloride 112 mmol/L (96-108); Estimated Glomerular Filt Rate > 60; Potassium 3.6 mmol/L (3.3-5.1); Sodium 145 mmol/L (135-145); Total Protein 6.2 g/dL (6.5-8.0)
== END 2025-08-04 05:30 | disposition home or self-care (01) ==
LOC: HO.MMNH1L 05:29
PROVIDERS: Visit Provider Physician Assistant Medical
DX: Z13.1 Encounter for screening for diabetes mellitus (principal)
CPT/HCPCS: 36415; 80053; 83036; 85025

== ENCOUNTER 2025-08-08 05:53 | Outpatient (REF) | payer OTHER, SELFPAY ==
[2025-08-08 05:57] LABS: MANUAL DIFF FLAG NO
--- OUTSIDE RECORDS SUMMARY | 2025-08-08 05:57 | XMS_ITS | Encounter Summary ---
Author Organization [facility] Address [address] [place] [address] Care Team Providers Care Gas Meter Repairer Name Role Phone Jose Cedillo MD Primary Care Provider Encounter Details Date Type Department Care Team (Late st Contact Info) Description 02/19/2025 Lab Requisition [facility] [address] [place] [address] Arun Flannery MD [address] [place] [address] Essential (primary) hypertension Social History Tobacco Use Types Packs/Day Years Used Date Smoking Tobacco: Unknown Passive Smoke Exposure: Never Comments:Unknown hx Dementia Alcohol Use Standard Drinks/Week Comments Never 0 (1 standard drink = 0.6 oz pur e alcohol) Food Risk Answer Date Recorded Within the past 12 months we worried whether our food would run out before we got money to buy more. Unable to respond 025 Within the past 12 months th e food we bought just didn't last and we didn't have money to get more. Unable to respond 12/2024 Interpersonal Safety Answer Date Record ed Physical Abuse Unrecognized value 02/10/2025 Verbal Abuse Unrecognized value 02/10/2025 Comments Unknown Sex and Gender Information Value Date Recorded Sex Assigned at Female 09/04/2024 7:58 AM EST Legal Sex Female 12:59 PM EST Gender Identity Female 09/04/2024 7:58 AM EST Sexual Orientation Not on file documented as of this encounter Functional Status * Are you deaf or do you have serious difficulty hearing? Answer Date of Assessment Author No 02/05/2025 8:48 PM EDT Prisca Rodriguez RN * Are you blind or do you have serious difficulty seeing, even when wearing glasses? Answer Date of Assessment Author No 02/05/2025 8:48 PM Prisca Del Real RN * Do you have serious difficulty walking or climbing stairs? Answer Date of Assessment Author Yes 02/05/2025 8:48 PM Prisca Del Real RN * Do you have serious difficulty dressing or bathing? Answer Date of Assessment Author Yes 02/05/2025 8:48 PM Prisca Del Real RN * Because of a physical, mental, or emotional condition, do you have serious difficulty doing errandsalone such as visiting the doctor? Answer Date of Assessment Author No 02/05/2025 8:48 PM Prisca Del Real RN documented as of this encounter Mental Status * Because of a physical, mental, or emotional condition, do you have serious difficulty concentrating, remembering, or making decisions? (5 years old or older) Answer Entry Date Author No 02/05/2025 8:48 PM Prisca Del Real RN documented in this encounter Plan of Treatment Not on file documented as of this encounter Procedures Procedure Name Priority Date/Time Associated Diagnosis Comments COMPLETE BLOOD COUNT Routine 02/19/2025 8:04 AM EDT Essential (primary) hypertension BASIC METABOLIC PANEL Routine 02/19/2025 8:04 AM EDT Essential (primary) hypertension documented in this encounter Results * Basic metabolic panel (02/19/2025 8:04 AM EDT) [facility] Sodium 140 133 - 145 mmol/L LAB CHEMISTRY METHOD 02/19/2025 10:17 AM [facility] Potassium 3.9 3.5 - 5.5 mmol/L LAB CHEMISTRY METHOD 02/19/2025 10:17 AM [facility] Chloride 108 96 - 110 mmol/L LAB CHEMISTRY METHOD 02/19/2025 10:17 AM [facility] CO2 27 21 - 32 mmol/L LAB CHEMISTRY METHOD 02/19/2025 10:17 AM [facility] Anion Gap 5 3 - 11 LAB CHEMISTRY METHOD 02/19/2025 10:[address] [facility] Glucose 83 70 - 100 mg/dL LAB CHEMISTRY METHOD 02/19/2025 10:17 AM [facility] BUN 21 5 - 25 mg/dL LAB CHEMISTRY METHOD 02/19/2025 10:17 AM [facility] Creatinine 0.83 0.50 - 1.10 mg/dL LAB CHEMISTRY METHOD 02/19/2025 10:17 AM [facility] eGFR 68 >=60 mL/min/1. 73m2 LAB CHEMISTRY METHOD 02/19/2025 10:[address] [facility] Comment:Calculation based on the Chronic Kidney Disease Epidemiology Collaboration (CKD-EPI) equation refit without adjustment for race. BUN/Creatinine Ratio 25.3 LAB CHEMISTRY METHOD 02/19/2025 10:17 AM [facility] Calcium 9.5 8.5 - 10.5 mg/dL LAB CHEMISTRY METHOD 02/19/2025 10:17 AM [facility] Blood Venous blood specimen / Unknown Venipuncture / Unknown 02/19/2025 8:04 AM EDT 02/19/2025 9:20 AM EDT Arun Flannrey MD LAB BLOOD ORDERABLES Final R esult [facility] [address] [place] [address], * Complete blood count (02/19/2025 8:04 AM EDT) WBC 6.8 4.8 - 10.8 K/mcL LAB HEMETOLOGY METHOD 02/19/2025 9:50 AM [facility] RBC 4.30 3.80 - 4.80 M/mcL LAB HEMETOLOGY METHOD 02/19/2025 9:[address] [facility] Hemoglobin 13.1 11.5 - 16.0 g/dL LAB HEMETOLOGY METHOD 02/19/2025 9:[address] [facility] Hematocrit 40.0 35.0 - 47.0 % LAB HEMETOLOGY METHOD 02/19/2025 9:[address] [facility] MCV 92.6 79.0 - 98.0 FL LAB HEMETOLOGY METHOD 02/19/2025 9:[address] [facility] MCH 30.3 27.0 - 32.0 pcg LAB HEMETOLOGY METHOD 02/19/2025 9:[address] [facility] MCHC 32.8 32.0 - 37.0 g/dL LAB HEMETOLOGY METHOD 02/19/2025 9:[address] [facility] RDW 11.9 11.0 - 15.0 % LAB HEMETOLOGY METHOD 02/19/2025 9:[address] [facility] Platelets 239 130 - 400 K/mcL LAB HEMETOLOGY METHOD 02/19/2025 9:[address] [facility] MPV 10.6 7.0 - 11.0 FL LAB HEMETOLOGY METHOD 02/19/2025 9:[address] [facility] NRBC 0.0 <1.0 % LAB HEMETOLOGY METHOD 02/19/2025 9:[address] [facility] NRBC Absolute 0.00 <0.10 K/mcL LAB HEMETOLOGY METHOD 02/19/2025 9:[address] [facility] Blood Venous blood specimen / Unknown Venipuncture / Unknown 02/19/2025 8:04 AM EDT 02/19/2025 9:20 AM EDT us Arun Flannery MD LAB BLOOD ORDERABLES Final R esult [facility] [place] [facility] [address] [place] [address], documented in this encounter Visit Diagnoses Diagnosis Essential (primary) hypertension Unspecified essential hypertension documented in this encounter Care Teams Gas Meter Repairer Relationship Specialty Start Date End Date Jose Cedillo MD [address] [place] [address] PCP - General 02/28/11 documented as of this encounter
--- OUTSIDE RECORDS SUMMARY | 2025-08-08 05:57 | XMS_ITS | Encounter Summary ---
Author Organization [facility] Address [address] [place] [address] Care Team Providers Care Test Development Engineer Name Role Phone Jose Cedillo MD Primary Care Provider [phone] Encounter Details Date Type Department Care Team (Late st Contact Info) Description 07/15/2025 Results Follow-Up [facility] [address] [place] [address] Mary Villar RN Social History Tobacco Use Types Packs/Day Years [...] 8:48 PM Prisca Del Real RN * Are you blind or do you have serious difficulty seeing, even when wearing glasses? Answer Date of Assessment Author No 02/05/2025 8:48 PM Prisca Del Real RN * Do you have serious difficulty walking or climbing stairs? Answer Date of Assessment Author Yes 02/05/2025 8:48 PM EDT Prisca Rodriguez RN * Do you have serious difficulty dressing or bathing? Answer Date of Assessment Author Yes 02/05/2025 8:48 PM EDT Prisca Rodriguez RN * Because of a physical, mental, or emotional condition, do you have serious difficulty doing errandsalone such as visiting the doctor? Answer Date of Assessment Author No 02/05/2025 8:48 PM EDT Prisca Rodriguez RN documented as of this encounter Mental Status * Because of a physical, mental, or emotional condition, do you have serious difficulty concentrating, remembering, or making decisions? (5 years old or older) Answer Entry Date Author No 02/05/2025 8:48 PM EDT Prisca Rodriguez RN documented in this encounter Progress Notes * Mary Villar RN - 07/15/2025 5:[address] Abdi call facility- it pt not in pain, may follow up with pcp Spoke with facility and lawyer augustus at [phone]. He stated she is ok and will call to follow up with pcp documented in this encounter Plan of Treatment Not on file documented as of this encounter Visit Diagnoses Not on filedocumented in this encounter Care Teams Test Development Engineer Relationship Specialty Start Date End Date Jose Cedillo MD [facility] [place] [address] PCP - General 02/28/11 documented as of this encounter
--- OUTSIDE RECORDS SUMMARY | 2025-08-08 05:57 | XMS_ITS | Clinical Summary ---
Author Organization [facility] Address [address] [place] [address] Phone Care Team Providers Care Lamination Assembler Name Role Phone Jose Cedillo MD Primary Care Provider [phone] Allergies Active Allergy Reactions Criticality Noted Date Comments Amlodipine Rash High 02/05/2024 Influenza Virus Vaccines GI intolerance 025 Lisinopril Cough,Itching High 02/05/2024 Omeprazole Swelling 05/15/2025 Medications alendronate (FOSAMAX) 70 mg tablet Take 1 tablet (70 mg total) by mouth every 7 (seven) days. 08/14/2024 Active atorvastatin (LIPITOR) 10 mg tablet Take 1 tablet (10 mg total) by mouth 1 (one) time each day. 08/14/2024 Active donepeziL (ARICEPT) 10 mg tablet Take 1 tablet (10 mg total) by mouth at bedtime. 08/14/2024 Active doxazosin (CARDURA) 2 mg tablet Take 1 tablet (2 mg total) by mouth 1 (one) time each day. 08/14/2024 Active doxepin (SINEquan) 10 mg capsule Take 2 capsules (20 mg total) by mouth at bedtime. 08/14/2024 Active losartan (COZAAR) 100 mg tablet Take 1 tablet (100 mg total) by mouth 1 (one) time each day. 08/14/2024 Active metoprolol succinate (TOPROL-XL) 25 mg 24 hr tablet Take 1 tablet (25 mg total) by mouth 1 (one) time each day. 08/14/2024 Active sertraline (ZOLOFT) 25 mg tablet Take 1 tablet (25 mg total) by mouth at bedtime. 08/14/2024 Active melatonin 3 mg tablet Take 2 tablets (6 mg total) by mouth at bedtime. Active calcium carbonate-vitam in D (Calcium 600 + D,3,) 600 mg-10 mcg (400 unit) per tablet Take 1 tablet by mouth 2 (two) times a day. Active QUEtiapine (SEROquel) 50 mg tablet Take 1 tablet (50 mg total) by mouth 2 (two) times a day. 60 each 02/08/2025 Active Active Problems Problem Noted Date Diagnosed Date Weakness 02/06/2025 Encounters Date Type Department Care Team Description 07/15/2025 Results Follow-Up [facility] Emergency [address] [place] [phone] Mary Villar RN 07/14/2025 5:00 PM EDT - 07/15/2025 12:03 AM EDT Emergency [facility] Emergency [address] [place] [phone] Chloe Abdi MD Wyman, Tim, MD Fall, initial encounter (Primary Dx) Discharge Disposition: Home or Self Care 05/18/2025 4:16 AM EDT - 05/18/2025 5:29 AM EDT Emergency [facility] Emergency [address] [place] [phone] Celine Cochran MD History of dementia (Primary Dx) Discharge Disposition: Home or Self Care 05/15/2025 3:42 PM EDT - 05/15/2025 6:46 PM EDT Emergency [facility] Emergency [address] [place] [phone] Kiran Krishnamurthy MD Zaidi, Mansoor Anwer, MD Dementia with behavioral disturbance (CMS/FORMERLY [facility] V24, CMS/FORMERLY [facility] V28) (Primary Dx) Discharge Disposition: Home or Self Care from Last 3 Months Medical History Medical History Date Comments Anxiety Dementia (CMS/HCC V24, CMS/FORMERLY [facility] V28) Social History Tobacco Use Types Packs/Day Years Used Date Smoking Tobacco: Unknown Passive Smoke Exposure: Never Tobacco Cessation:Counseling Given: No Comments:Unknown hx Dementia Alcohol Use Standard Drinks/Week [...] AM EST Sexual Orientation Not on file Obstetrics History Last Filed Vital Signs Vital Sign Reading Time Taken Comments Blood Pressure 167/76 07/14/2025 8:38 PM EDT Pulse 58 07/14/2025 8:38 PM EDT Temperature 36.3 C (97.3 F) 07/14/2025 8:38 PM EDT Respiratory Rate 12 07/14/2025 8:38 PM EDT Oxygen Saturation 96% 07/14/2025 8:38 PM EDT Inhaled Oxygen Concentration - - Weight 81.6 kg (180 lb) 07/14/2025 6:48 PM EDT Height 170.2 cm (5' 7 ) 07/14/2025 6:48 PM EDT Body Mass Index 28.19 07/14/2025 6:48 PM EDT Plan of Treatment Health Maintenance Due Date Last Done Comments Cholesterol Screening (Lipid Panel) 06/03/2024 Osteoporosis Screening (Bone Density Screening) 06/03/2024 Depression Screening 10/09/2024 COVID-19 Vaccine ( season) 2025 02/03/2022, 08/07/2021, 08/04/2021, Additional history exists Influenza Vaccine (#1) 2025 , 08/24/2010, 08/26/2008, Additional history exists Social Influencers of Health Screening 02/08/2026 02/08/2025 Hypertension/CHF/CAD Annual BMP Blood Test 02/19/2026 02/19/2025, 02/11/2025, 02/01/2025, Additional history exists Falls Risk Assessment 05/15/2026 05/15/2025 DTaP,Tdap,and Td Vaccines (4 - Td or Tdap) 03/18/2034 03/18/2024, 03/10/2014, 03/01/2004 Zoster Vaccines Completed 12/07/2021, 09/09, 11/23/2007 Pneumococcal Vaccine: 50+ Years Completed 02/02/2023, 03/30/2016, 09/09/2013, Additional history exists RSV Immunization Adult Patients Completed 10/12/2023 HIB Vaccines Aged Out No longer eligi ble based on patient's age to complete this topic HPV Vaccines Aged Out No longer eligi ble based on patient's age to complete this topic Hepatitis A Vaccines Aged Out No long er eligible based on patient's age to complete this topic Hepatitis B Vaccines Aged Out No long er eligible based on patient's age to complete this topic IPV Vaccines Aged Out No longer eligi ble based on patient's age to complete this topic MMR Vaccines Aged Out No longer eligi ble based on patient's age to complete this topic Meningococcal ACWY Vaccine Aged Out N o longer eligible based on patient's age to complete this topic Meningococcal B Vaccine Aged Out No l onger eligible based on patient's age to complete this topic RSV Immunization Patients Under 20 months Aged Out No longer eligible based on patient's age to complete this topic Varicella Vaccines Aged Out No longer eligible based on patient's age to complete this topic Procedures Procedure Name Priority Date/Time Associated Diagnosis Comments XR PELVIS 1-2 VIEWS STAT 07/14/2025 9 :22 PM EDT XR CHEST 1 VIEW STAT 07/14/2025 9:[address] CERVICAL SPINE WO CONTRAST STAT 07/14/2025 7:[address] HEAD WO CONTRAST STAT 07/14/2025 7 :01 PM EDT CONNELLY URINE CULTURE TUBE STAT 07/14/2025 6:47 PM EDT URINALYSIS WITH REFLEX MICROSCOPIC AND CULTURE STAT 07/14/2025 6:47 PM EDT URINALYSIS WITH REFLEX MICROSCOPIC AND CULTURE STAT 07/14/2025 6:47 PM EDT CULTURE URINE STAT 07/14/2025 6:47 PM EDT BASIC METABOLIC PANEL Routine 02/19/2025 8:04 AM EDT Essential (primary) hypertension from Last 3 Months or Most Recently Relevant to Health Maintenance Results * XR Pelvis 1-2 Views (07/14/2025 9:22 PM EDT) Anatomical Region Laterality Modality Body, Pelvis Radiographic Susie ging 07/15/2025 9:23 AM EDT Impressions 07/15/2025 9:25 AM EDT Impression: No pelvic fracture identified. Telerad GIRISH ([id number]) -------- FINAL REPORT -------- Dictated By: Anna Dodd Dictated Date: 07/15/2025 09:23 ET Assigned Physician: Anna Dodd Reviewed and Electronically Signed By: Anna Dodd Signed Date: 07/15/2025 09:25 ET Workstation ID: [id number] Transcribed By: Self Edit Transcribed Date: 07/15/2025 09:23 ET Narrative 07/15/2025 9:25 AM EDT History: Pelvic pain after fall. Comparison: Abdominal series 11/21/18 Findings: An AP supine pelvis is submitted. The patient is rotated. No acute fracture is seen. No abnormal widening of the sacroiliac joints is noted. There is severe loss of cartilage space in the left hip, with marginal osteophytes. The right hip joint is well-maintained. No femoral neck fracture is seen. [employer] shunt tubing is partially imaged. A large amount of stool is seen within the colon and rectum. Procedure Note Anna Dodd MD - 07/15/2025 History: Pelvic pain after fall. Comparison: Abdominal series 11/21/18 Findings: An AP supine pelvis is submitted. The patient is rotated. No acutefracture is seen. No abnormal widening of the sacroiliac joints isnoted. There is severe loss of cartilage space in the left hip, with marginalosteophytes. The right hip joint is well-maintained. No femoral neckfracture is seen. [employer] shunt tubing is partially imaged. A large amount of stool is seenwithin the colon and rectum. IMPRESSION: Impression: No pelvic fracture identified. Telerad PA ([id number]) -------- FINAL REPORT -------- Dictated By: Anna Dodd Dictated Date: 07/15/2025 09:23 ET Assigned Physician: Anna Dodd Reviewed and Electronically Signed By: Anna Dodd Signed Date: 07/15/2025 09:25 ET Workstation ID: [id number] Transcribed By: Self Edit Transcribed Date: 07/15/2025 09:23 ET us Chloe Abdi MD IMG XR PROCEDURES Final Result * XR Chest 1 View (07/14/2025 9:22 PM EDT) Anatomical Region Laterality Modality Body Radiographic Susie ging 07/15/2025 9:27 AM EDT Impressions 07/15/2025 9:30 AM EDT Impression: 1. Lungs grossly clear. 2. Thoracic vertebral compression fractures, including a potentially new fracture since 09/04/24. Telerad PA ([id number]) -------- FINAL REPORT -------- Dictated By: Anna Ddod Dictated Date: 07/15/2025 09:27 ET Assigned Physician: Anna Dodd Reviewed and Electronically Signed By: Anna Dodd Signed Date: 07/15/2025 09:30 ET Workstation ID: [id number] Transcribed By: Self Edit Transcribed Date: 07/15/2025 09:27 ET Narrative 07/15/2025 9:30 AM EDT History: Fall. Chest pain. Comparison: 09/04/24 Findings: AP upright chest. This is a suboptimal inspiration. The cardiac silhouette appears mildly enlarged and the thoracic aorta is tortuous. The pulmonary vascularity is within normal limits. The lungs are grossly clear. [employer] shunt tubing projects over the right hemithorax, unchanged. Two adjacent vertebral fractures are seen in the mid thoracic spine, only one of which is visualized on the previous exam. Procedure Note Anna Dodd MD - 07/15/2025 History: Fall. Chest pain. Comparison: 09/04/24 Findings: AP upright chest. This is a suboptimal inspiration. The cardiac silhouetteappears mildly enlarged and the thoracic aorta is tortuous. The pulmonaryvascularity is within normal limits. The lungs are grossly clear. [employer] shunt tubing projects over the right hemithorax, unchanged. Twoadjacent vertebral fractures are seen in the mid thoracic spine, only oneof which is visualized on the previous exam. IMPRESSION: Impression: 1. Lungs grossly clear. 2. Thoracic vertebral compression fractures, including a potentially newfracture since 09/04/24. Telerad PA ([id number]) -------- FINAL REPORT -------- Dictated By: Anna Dodd Dictated Date: 07/15/2025 09:27 ET Assigned Physician: Anna Dodd Reviewed and Electronically Signed By: Anna Dodd Signed Date: 07/15/2025 09:30 ET Workstation ID: [id number] Transcribed By: Self Edit Transcribed Date: 07/15/2025 09:27 ET us Chloe Abdi MD IMG XR PROCEDURES Final Result * CT Cervical Spine wo Contrast (07/14/2025 7:01 PM EDT) Anatomical Region Laterality Modality Spine, C-spine Computed Tomogra phy 07/14/2025 7:43 PM EDT Impressions 07/14/2025 7:43 PM EDT Suspect mild acute compression fracture of the T1 and T2 vertebral body. Further evaluation by MRI is recommended as indicated. This document has been electronically signed by: Arian Gaitan MD on 07/14/2025 19:43:13 Narrative 07/14/2025 7:43 PM EDT INDICATION: Discitis, suspected or evaluation of CT cervical spine without contrast Comparison: CT/SR - CT C SPINE WO CONTRAST - 02/01/25 12:09 EDT Findings: Normal vertebral body alignment. Degenerative changes of the spine. Mild compression fracture of the T1 vertebral body. Possible mild loss height of the T2 vertebral body. Visualized intracranial contents are unremarkable. Atherosclerosis calcification of the carotid bulbs. Lung apices are clear. Procedure Note Arian Gaitan MD - 07/14/2025 INDICATION: Discitis, suspected or evaluation of CT cervical spine without contrast Comparison: CT/SR - CT C SPINE WO CONTRAST - 02/01/25 12:09 EDT Findings: Normal vertebral body alignment. Degenerative changes of the spine. Mild compression fracture of the T1 vertebral body. Possible mild loss height of the T2 vertebral body. Visualized intracranial contents are unremarkable. Atherosclerosis calcification of the carotid bulbs. Lung apices are clear. IMPRESSION: Suspect mild acute compression fracture of the T1 and T2 vertebral body. Further evaluation by MRI is recommended as indicated. This document has been electronically signed by: Arian Gaitan MD on 07/14/2025 19:43:13 us Chloe Abdi MD IMG CT PROCEDURES Final Result * CT Head wo Contrast (07/14/2025 7:01 PM EDT) Anatomical Region Laterality Modality Head and Neck Computed Tomogra phy 07/14/2025 7:35 PM EDT Impressions 07/14/2025 7:35 PM EDT Age-related atrophy with chronic microvascular leukomalacia. No hemorrhage, mass effect, or acute findings identified. This document has been electronically signed by: Arian Gaitan MD on 07/14/2025 19:35:00 Narrative 07/14/2025 7:35 PM EDT INDICATION: accidental fall CT Brain without contrast Comparison: CT/SR - CT HEAD WO CONTRAST - 02/01/25 12:[address]/SR - CT C SPINE WO CONTRAST - 02/01/25 12:09 EDT FINDINGS: Cortical sulci: There is diffuse prominence of the cortical sulci compatible with age-related atrophy. Ventricles: Normal for age Brain parenchyma: There is patchy lucency throughout the deep white matter indicating chronic microvascular leukomalacia. Extra axial spaces: Normal Posterior Fossa: Normal Extracranial soft tissues: Normal Additional abnormality: Right frontal approach [employer] shunt. Atherosclerosis calcification of the distal carotid artery and vertebral artery. Mucosal thickening of the bilateral maxillary sinus. Procedure Note Arian Gaitan MD - 07/14/2025 INDICATION: accidental fall CT Brain without contrast Comparison: CT/SR - CT HEAD WO CONTRAST - 02/01/25 12:[address]/SR - CT C SPINE WO CONTRAST - 02/01/25 12:09 EDT FINDINGS: Cortical sulci: There is diffuse prominence of the cortical sulci compatible with age-related atrophy. Ventricles: Normal for age Brain parenchyma: There is patchy lucency throughout the deep whitematter indicating chronic microvascular leukomalacia. Extra axial spaces: Normal Posterior Fossa: Normal Extracranial soft tissues: Normal Additional abnormality: Right frontal approach [employer] shunt. Atherosclerosis calcification of the distal carotid artery and vertebral artery. Mucosal thickening of the bilateral maxillary sinus. IMPRESSION: Age-related atrophy with chronic microvascular leukomalacia. No hemorrhage, mass effect, or acute findings identified. This document has been electronically signed by: rAian Gaitan MD on 07/14/2025 19:35:00 Chloe Abdi MD IMG CT PROCEDURES Final Result * (ABNORMAL) Urinalysis with reflex microscopic and culture (07/14/2025 6:47 PM EDT) Specific [place] Urine 1.017 1.003 - 1.030 LAB URINALYSIS - AUTOMATED METHOD 07/14/2025 8:07 PM [facility] pH, Urine 7.0 5.0 - 8.0 pH LAB URINALYSIS - AUTOMATED METHOD 07/14/2025 8:07 PM [facility] Leukocytes, Urine Small(A) Negative LAB URINALYSIS - AUTOMATED METHOD 07/14/2025 8:07 PM [facility] Nitrite, Urine Negative Negative LAB URINALYSIS - AUTOMATED METHOD 07/14/2025 8:07 PM [facility] Protein, Urine Negative <=Trace mg/dL LAB URINALYSIS - AUTOMATED METHOD 07/14/2025 8:07 PM [facility] Glucose, Urine Negative Negative mg/dL LAB URINALYSIS - AUTOMATED METHOD 07/14/2025 8:07 PM [facility] Ketones, Urine Negative Negative mg/dL LAB URINALYSIS - AUTOMATED METHOD 07/14/2025 8:07 PM [facility] Urobilinogen, Urine 1.0 0.2 - 1.0 mg/dL LAB URINALYSIS - AUTOMATED METHOD 07/14/2025 8:07 PM [facility] Bilirubin, Urine Negative Negative LAB URINALYSIS - AUTOMATED METHOD 07/14/2025 8:07 PM [facility] Blood, Urine Negative Negative LAB URINALYSIS - AUTOMATED METHOD 07/14/2025 8:07 PM [facility] RBC, Urine 2.0 0 - 4 /HPF LAB URINALYSIS - AUTOMATED METHOD 07/14/2025 8:07 PM [facility] WBC, Urine 3.5 0 - 4 /HPF LAB URINALYSIS - AUTOMATED METHOD 07/14/2025 8:07 PM [facility] Squamous Epithelial, Urine 28 0 - 60 /LPF LAB URINALYSIS - AUTOMATED METHOD 07/14/2025 8:07 PM [facility] Bacteria, Urine Negative Negative /HPF LAB URINALYSIS - AUTOMATED METHOD 07/14/2025 8:07 PM [facility] Hyaline Casts, Urine 0.4 0 - 3 /LPF LAB URINALYSIS - AUTOMATED METHOD 07/14/2025 8:07 PM [facility] Urine Urine specimen obtained by clean catch procedure / Unknown Non-blood Collection / Unknown 07/14/2025 6:47 PM EDT 07/14/2025 6:57 PM EDT us Chloe Abdi MD LAB URINE ORDERABLES Final Res ult [facility] [address] [place] [address], * Connelly urine culture tube (07/14/2025 6:47 PM EDT) [facility] Extra Tube Hold for add-ons. 07/14/2025 8:01 PM EDT [facility] Comment:Auto resulted. Urine Urine specimen obtained by clean catch procedure / Unknown Non-blood Collection / Unknown 07/14/2025 6:47 PM EDT 07/14/2025 6:57 PM EDT us Chloe Abdi MD LAB URINE ORDERABLES Final Res ult Performing Organization Address City/[facility]/ZIP Co de Phone Number [facility] [address] [place] [address], [place] [phone] * Culture urine (07/14/2025 6:47 PM EDT) [facility] Culture, Urine 10,000-49,000 CFU/mL Mixed bacterial morphotypes present suggestive of possible contamination during collection. Suggest appropriate recollection if clinically indicated. 07/15/2025 1:21 PM EDT [facility] Urine Urine specimen obtained by clean catch procedure / Unknown Non-blood Collection / Unknown 07/14/2025 6:47 PM EDT 07/14/2025 8:07 PM EDT us Chloe Abdi MD LAB MICROBIOLOGY - GENERAL ORD ERABLES Final Result Performing Organization Address [facility]/ZIP Co de Phone Number [facility] [address] [place] [address], [place] [phone] * Basic metabolic panel (02/19/2025 8:04 AM EDT) [facility] Sodium 140 133 - 145 mmol/L LAB CHEMISTRY METHOD 02/19/2025 10:17 AM EDT [facility] Potassium 3.9 3.5 - 5.5 mmol/L LAB CHEMISTRY METHOD 02/19/2025 10:17 AM EDT [facility] Chloride 108 96 - 110 mmol/L LAB CHEMISTRY METHOD 02/19/2025 10:17 AM [facility] CO2 27 21 - 32 mmol/L LAB CHEMISTRY METHOD 02/19/2025 10:17 AM [facility] Anion Gap 5 3 - 11 LAB CHEMISTRY METHOD 02/19/2025 10:17 AM [facility] Glucose 83 70 - 100 mg/dL LAB CHEMISTRY METHOD 02/19/2025 10:17 AM [facility] BUN 21 5 - 25 mg/dL LAB CHEMISTRY METHOD 02/19/2025 10:17 AM [facility] Creatinine 0.83 0.50 - 1.10 mg/dL LAB CHEMISTRY METHOD 02/19/2025 10:17 AM [facility] eGFR 68 >=60 mL/min/1. 73m2 LAB CHEMISTRY METHOD 02/19/2025 10:17 AM [facility] Comment:Calculation based on the Chronic Kidney Disease Epidemiology Collaboration (CKD-EPI) equation refit without adjustment for race. BUN/Creatinine Ratio 25.3 LAB CHEMISTRY METHOD 02/19/2025 10:17 AM [facility] Calcium 9.5 8.5 - 10.5 mg/dL LAB CHEMISTRY METHOD 02/19/2025 10:17 AM [facility] Blood Venous blood specimen / Unknown Venipuncture / Unknown 02/19/2025 8:04 AM EDT 02/19/2025 9:20 AM EDT us Arun Flannery MD LAB BLOOD ORDERABLES Final R esult [facility]) [facility] [address] [place] [address], from Last 3 Months or Most Recently Relevant to Health Maintenance Insurance * Guarantor: Tina Hollis Account Type Relation to Patient Date of Phone Billing Address Personal/Family Self [address] [place] [address] [id number] 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 Advance Directives and Living Will 05/20/2025 11:32 AM MOLST Advance Directives and Living Will 05/20/2025 11:30 AM PROXY Health Care Decision (hx) 02/06/2024 AD PRO DIRECTIVE Health Care Decision (hx) 02/06/2024 Manish morrow ADVANCE DIRECTIVE Health Care Decision (hx) 12/14/2018 AD PRO DIRECTIVE Health Care Decision (hx) 08/09/2018 AD PRO DIRECTIVE Health Care Decision (hx) 08/06/2018 AD PRO DIRECTIVE * Full Code - Default (Latest Code Status on File) Date Activated Date Inactivated Comments 02/06/2025 12:11 PM 02/10/2025 3:15 PM This is order is used when code status has not been discussed with the patient, or code status is otherwise unknown/unconfirmed To update the patient's code status, place a code status order. Do not modify or discontinue any currently active code status orders. Healthcare Agents on File Name Relationship Healthcare Agent Relationship Communication [place] Other Health Care Agent Care Teams Lamination Assembler Relationship Specialty Start Date End Date Jose Cedillo MD [address] [place] [phone] PCP - General 02/28/11
--- OUTSIDE RECORDS SUMMARY | 2025-08-08 05:57 | XMS_ITS | Data Portability ---
Author Organization [place] [facility] Address [address] [place] [address] Care Team Providers Care Drafter Seismograph Name Role Phone HERNANDEZAURORA BLAKE Primary Care [...] I have accessed patient records on the [employer]. This information was pertinent in my medical decision making today. Time On Scene with Patient: 00:33:34 alvarado Not available 04/08/2019 12:10:59 Plan of Treatment Reminders Order Date Submit Date Provider Last Modified By Organization Details Last Modified Time Details Appointments None recorded. Lab rapid flu (A+B) 2018 019 alvarado [facility], [address] [place] [address], [id number], 9 21:25:33 Referral None recorded. Procedures None recorded. Surgeries None recorded. Imaging XR, chest, 2 view 2018 019 [facility] ([facility]), [address] [place] [address], [place], [address], 9 15:28:38 Medication Orders acetaminop hen 325 mg tablet 2018 019 [id number], [address] [place], [address], 9 21:13:37 acetaminop hen 325 mg tablet 2018 019 INTERFACE [id number], [address] [place], [address], 9 21:13:40 Tessalon Perles 100 mg capsule 2018 019 [id number], [address] [place], [address], 9 21:13:40 erythromyc in 5 mg/gram (0.5 %) eye ointment 2018 019 [facility]FACE [id number], [address] [place], [address], 9 21:13:42 Flonase Allergy Relief 50 mcg/actuat ion nasal spray,susp ension 2018 019 [facility]FACE [id number], [address] [place], [address], 9 10:05:55 Patient TargetsNo targets recorded. Patient Instructions Encounter Date Encounter Id Patient Instructions Last Modified By Organization Details Last Modified Time 04/05/2019 [id number] pinkeye: care instructions nyuzych Not available 04/05/2019 [...] (A+B) Flu A negati ve Not Available [facility] [address] [place], [address], 04/05/2019 20:53:20 04/05/20 19 04/05/2019 rapid flu (A+B) Flu B negati ve Not Available [facility] [address] [place], [address], 04/05/2019 20:53:20 04/07/20 19 XR, chest , 2 view No observ ation record ed. [facility] ([facility]) [address], [place], [address], 04/08/2019 15:37:43 Result Notes None recorded. Medical [...] Relief 50 mcg/actuati on nasal spray,suspe nsion Jewett 1 spray every day by intranasa l [...] Never Smoker [facility] [address], [place], [address], [place] [facility] 04/08/2019 12:06:52 Within The [...] History Nothing Reported. Medical History Condition Response Coronary Artery Disease N Depression N COPD N Diabetes N Cancer N Stroke N Asthma N High Cholesterol N Pulmonary Embolism N Hypertension Y Kidney Disease N Gynecological HistoryNo gynecological history recorded. Obstetrics History GPAL:G 0 P 0 0 0 0 Past Encounters Encounter ID Performer Location Encounter Start Date Encounter Closed Date Diagnosis/Indication Diagnosis SNOMED-CT Code Diagnosis ICD10 Code Diagnosis IMO Codes Diagnosis Note [id number] [facility] [address] [place] [address] 04/05/2019 20:43:47 04/08/2019 19:06:39 Bacterial conjunctivitis 439844775 H10.9 Acute uppe r respiratory infection 54393777 J06.9 Fever 894870609 R50.9 Cough 14133559 R05 Health Concerns Section Related Observation LastModified by Organization Detai ls LastModified Time None Recorded Concern Status LastModified by Organization Details LastModified Time None Recorded Advance Directives Directive None Recorded Payers Insurance Date Sequence Insurance Name Policy Number Policy Macias Covered Member ID Macias Member ID Guarantor Name 04/10/2019 1 [facility] (INDEMNITY) [id number] Shari Bowles [id number] Shari Bowles 04/05/2019 1 *SELF PAY* Shari Bowles [id number] Shari Bowles Notes Date Note Type Note [...] dementia, osteoarthritis [facility] [address], [place], [address], [place] [facility] 04/08/2019 12:11:03 OBGyn Episode No OBEpisode recorded.
--- OUTSIDE RECORDS SUMMARY | 2025-08-08 05:57 | XMS_ITS | Encounter Summary ---
Author Organization [facility] Address [address] [place] [address] Care Team Providers Care Margin Trimmer Name Role Phone Jose Cedillo MD Primary Care Provider [phone] Encounter Details Date Type Department Care Team (Late st Contact Info) Description 02/14/2025 Lab Requisition [facility] - Main Lab [address] [place] [address] Arun Flannery MD [address] [place] [address] Unspecified dementia, unspecified severity, without behavioral disturbance, psychotic disturbance, mood disturbance, and anxiety (CMS/HCC V24, CMS/HCC V28); Essential (primary) hypertension; Hyperlipidemia, unspecified Social History Tobacco Use Types Packs/Day Years [...] documented as of this encounter Visit Diagnoses Diagnosis Unspecified dementia, unspecified severity, without behavioral disturbance, psychotic disturbance, mood disturbance, and anxiety (CMS/HCC V24, CMS/[facility] V28) Essential (primary) hypertension Unspecified essential hypertension Hyperlipidemia, unspecified documented in this encounter Care Teams Margin Trimmer Relationship Specialty Start Date End Date Jose Cedillo MD [address] [place] [phone] PCP - General 02/28/11 documented as of this encounter
--- OUTSIDE RECORDS SUMMARY | 2025-08-08 05:57 | XMS_ITS | Encounter Summary ---
Author Organization [facility] Address [address] [place] [address] Care Team Providers Care Tourist Information Assistant Name Role Phone Jose Cedillo MD Primary Care Provider [phone] Encounter Details Date Type Department Care Team (Late st Contact Info) Description 02/22/2025 Lab Requisition [facility] - Main Lab [address] [place] [address] Arun Flannery MD [address] [place] [address] Unspecified dementia, unspecified severity, without [...] disturbance, mood disturbance, and anxiety (CMS/HCC V24, CMS/[facility] V28) Essential (primary) hypertension Unspecified essential hypertension Hyperlipidemia, unspecified documented in this encounter Care Teams Tourist Information Assistant Relationship Specialty Start Date End Date Jose Cedillo MD [address] [place] [phone] PCP - General 02/28/11 documented as of this encounter
--- OUTSIDE RECORDS SUMMARY | 2025-08-08 05:57 | XMS_ITS | Encounter Summary ---
Author Organization [facility] Address [address] [place] [address] Care Team Providers Care Coal Hauler Name Role Phone Jose Cedillo MD Primary Care Provider [phone] Encounter Details Date Type Department Care Team (Late st Contact Info) Description 02/11/2025 Lab Requisition [facility] - Main Lab [address] [place] [address] Arun Flannery MD [address] [place], [place] [phone] Unspecified dementia, unspecified severity, without behavioral disturbance, psychotic disturbance, mood disturbance, and anxiety (CMS/HCC V24, CMS/HCC V28); Anxiety disorder, unspecified; Essential (primary) hypertension; Hyperlipidemia, unspecified; Hydrocephalus, unspecified (CMS/HCC V24, CMS/HCC V28) Social History Tobacco Use Types Packs/Day [...] Associated Diagnosis Comments COMPLETE BLOOD COUNT Routine 02/11/2025 7:47 AM EDT Unspecified dementia, unspecified severity, without behavioral disturbance, psychotic disturbance, mood disturbance, and anxiety (CMS/HCC V24, CMS/HCC V28) Anxiety disorder, unspecified Essential (primary) hypertension Hyperlipidemia, unspecified Hydrocephalus, unspecified (CMS/HCC V24, CMS/HCC V28) BASIC METABOLIC PANEL Routine 02/11/2025 7:47 AM EDT Unspecified dementia, unspecified severity, without behavioral disturbance, psychotic disturbance, mood disturbance, and anxiety (CMS/HCC V24, CMS/HCC V28) Anxiety disorder, unspecified Essential (primary) hypertension Hyperlipidemia, unspecified Hydrocephalus, unspecified (CMS/HCC V24, CMS/HCC V28) documented in this encounter Results * Basic metabolic panel (02/11/2025 7:47 AM EDT) Sodium 139 133 - 145 mmol/L LAB CHEMISTRY METHOD 02/11/2025 10:43 AM [facility] Potassium 4.2 3.5 - 5.5 mmol/L LAB CHEMISTRY METHOD 02/11/2025 10:43 AM [facility] Chloride 104 96 - 110 mmol/L LAB CHEMISTRY METHOD 02/11/2025 10:43 AM [facility] CO2 30 21 - 32 mmol/L LAB CHEMISTRY METHOD 02/11/2025 10:43 AM [facility] Anion Gap 5 3 - 11 LAB CHEMISTRY METHOD 02/11/2025 10:43 AM [facility] Glucose 79 70 - 100 mg/dL LAB CHEMISTRY METHOD 02/11/2025 10:43 AM [facility] BUN 20 5 - 25 mg/dL LAB CHEMISTRY METHOD 02/11/2025 10:43 AM [facility] Creatinine 0.81 0.50 - 1.10 mg/dL LAB CHEMISTRY METHOD 02/11/2025 10:43 AM [facility] eGFR 70 >=60 mL/min/1. 73m2 LAB CHEMISTRY METHOD 02/11/2025 10:43 AM [facility] Comment:Calculation based on the Chronic Kidney Disease Epidemiology Collaboration (CKD-EPI) equation refit without adjustment for race. BUN/Creatinine Ratio 24.7 LAB CHEMISTRY METHOD 02/11/2025 10:43 AM [facility] Calcium 10.4 8.5 - 10.5 mg/dL LAB CHEMISTRY METHOD 02/11/2025 10:43 AM [facility] Blood Venous blood specimen / Unknown Venipuncture / Unknown 02/11/2025 7:47 AM EDT 02/11/2025 9:35 AM EDT us Arun Flannery MD LAB BLOOD ORDERABLES Final R esult [facility] [address] [place] [address], * Complete blood count (02/11/2025 7:47 AM EDT) WBC 7.2 4.8 - 10.8 K/mcL LAB HEMETOLOGY METHOD 02/11/2025 10:23 AM EDT [facility] RBC 4.40 3.80 - 4.80 M/mcL LAB HEMETOLOGY METHOD 02/11/2025 10:23 AM EDT [facility] Hemoglobin 13.3 11.5 - 16.0 g/dL LAB HEMETOLOGY METHOD 02/11/2025 10:23 AM EDT [facility] Hematocrit 40.7 35.0 - 47.0 % LAB HEMETOLOGY METHOD 02/11/2025 10:23 AM EDT [facility] MCV 92.3 79.0 - 98.0 FL LAB HEMETOLOGY METHOD 02/11/2025 10:23 AM EDT [facility] MCH 30.2 27.0 - 32.0 pcg LAB HEMETOLOGY METHOD 02/11/2025 10:23 AM EDT [facility] MCHC 32.7 32.0 - 37.0 g/dL LAB HEMETOLOGY METHOD 02/11/2025 10:23 AM EDT [facility] RDW 11.8 11.0 - 15.0 % LAB HEMETOLOGY METHOD 02/11/2025 10:23 AM EDT [facility] Platelets 233 130 - 400 K/mcL LAB HEMETOLOGY METHOD 02/11/2025 10:23 AM EDT [facility] MPV 11.0 7.0 - 11.0 FL LAB HEMETOLOGY METHOD 02/11/2025 10:23 AM EDT [facility] NRBC 0.0 <1.0 % LAB HEMETOLOGY METHOD 02/11/2025 10:23 AM EDT [facility] NRBC Absolute 0.00 <0.10 K/mcL LAB HEMETOLOGY METHOD 02/11/2025 10:23 AM EDT [facility] Blood Venous blood specimen / Unknown Venipuncture / Unknown 02/11/2025 7:47 AM EDT 02/11/2025 9:35 AM EDT us Arun Flannery MD LAB BLOOD ORDERABLES Final R esult [facility] [address] [place] [address], documented in this encounter Visit Diagnoses Diagnosis Unspecified dementia, unspecified severity, without behavioral disturbance, psychotic disturbance, mood disturbance, and anxiety (CMS/HCC V24, CMS/HCC V28) Anxiety disorder, unspecified Essential (primary) hypertension Unspecified essential hypertension Hyperlipidemia, unspecified Hydrocephalus, unspecified (CMS/HCC V24, CMS/HCC V28) documented in this encounter Care Teams Coal Hauler Relationship Specialty Start Date End Date Jose Cedillo MD [address] [place] [address] PCP - General 02/28/11 documented as of this encounter
--- OUTSIDE RECORDS SUMMARY | 2025-08-08 05:57 | XMS_ITS | Encounter Summary ---
Author Organization [facility] Address [address] [place] [address] Care Team Providers Care Product Planner Name Role Phone Jose Cedillo MD Primary Care Provider [phone] Encounter Details Date Type Department Care Team (Late st Contact Info) Description 03/11/2025 Lab Requisition [facility] - Main Lab [address] [place] [address] Arun Flannery MD [address] [place], [place] [phone] Hyperlipidemia, unspecified Social History Tobacco Use Types [...] as of this encounter Visit Diagnoses Diagnosis Hyperlipidemia, unspecified documented in this encounter Care Teams Product Planner Relationship Specialty Start Date End Date Jose Cedillo MD [address] [place] [phone] PCP - General 02/28/11 documented as of this encounter
[2025-08-08 06:58] LABS: Anion Gap 10 (12-20); Blood Urea Nitrogen 21 mg/dL (9-16); Calcium 8.9 mg/dL (8.4-10.2); Carbon Dioxide 25 mmol/L (22-29); Chloride 112 mmol/L (96-108); Estimated Glomerular Filt Rate > 60; Hematocrit 34.9 % (37.0-47.0); Hemoglobin 11.7 g/dl (12.0-16.0); Imm Gran Abs Auto 0.02 X10*3/uL (0.00-0.03); Imm Gran Pct Auto 0.2 % (0.0-0.4); Lymphocytes Absolute Auto 1.3 X10*3/uL (1.2-4.9); Mean Corpuscular HGB Conc 33.5 g/dl (31.0-35.0); Mean Corpuscular Hemoglobin 31.5 pg (27.0-33.0); Mean Corpuscular Volume 93.8 fL (80.0-98.0); NRBC Abs Auto 0.000 X10*3/uL (0.0-0.012); NRBC Pct Auto 0.0 /100WBC (0.0-0.2); Platelet Count 207 X10*3/uL (160-400); Potassium 3.6 mmol/L (3.3-5.1); Red Blood Count 3.72 X10*6/uL (4.20-5.50); Sodium 143 mmol/L (135-145); White Blood Count 8.2 X10*3/uL (4.8-10.8)
== END 2025-08-08 05:54 | disposition home or self-care (01) ==
LOC: HO.MMNH1L 05:53
PROVIDERS: Visit Provider Physician Assistant Medical
DX: S22.010D Wedge compression fracture of first thoracic vertebra, subsequent encounter for fracture with routine healing (principal); R41.0 Disorientation, unspecified; R53.1 Weakness
CPT/HCPCS: 36415; 80048; 85025

== ENCOUNTER 2025-08-11 05:45 | Outpatient (REF) | payer OTHER, SELFPAY ==
[2025-08-11 05:38] LABS: MANUAL DIFF FLAG NO
--- OUTSIDE RECORDS SUMMARY | 2025-08-11 05:50 | XMS_ITS | Encounter Summary ---
Author Organization [facility] Address [address] [place] [address] Care Team Providers Care Managed Security Sales Consultant Name Role Phone Jose Cedillo MD Primary Care Provider [phone] Encounter Details Date Type Department Care Team (Late st Contact Info) Description 02/19/2025 Lab Requisition [facility] - Main Lab [address] [place] [address] Arun Flannery MD [address] [place] [address] Essential (primary) hypertension Social History [...] Basic metabolic panel (02/19/2025 8:04 AM EDT) [facility] Sodium 140 133 - 145 mmol/L LAB CHEMISTRY METHOD 02/19/2025 10:17 AM [facility] Potassium 3.9 3.5 - 5.5 mmol/L LAB CHEMISTRY METHOD 02/19/2025 10:17 AM [facility] Chloride 108 96 - 110 mmol/L LAB CHEMISTRY METHOD 02/19/2025 10:17 AM [facility] CO2 27 21 - 32 mmol/L LAB CHEMISTRY METHOD 02/19/2025 10:17 AM [facility] Anion Gap 5 3 - 11 LAB CHEMISTRY METHOD 02/19/2025 10:17 AM T [facility] Glucose 83 70 - 100 mg/dL LAB CHEMISTRY METHOD 02/19/2025 10:17 AM [facility] BUN 21 5 - 25 mg/dL LAB CHEMISTRY METHOD 02/19/2025 10:17 AM [facility] Creatinine 0.83 0.50 - 1.10 mg/dL LAB CHEMISTRY METHOD 02/19/2025 10:17 AM [facility] eGFR 68 >=60 mL/min/1. 73m2 LAB CHEMISTRY METHOD 02/19/2025 10:17 AM T [facility] Comment:Calculation based on the Chronic Kidney Disease Epidemiology Collaboration (CKD-EPI) equation refit without adjustment for race. BUN/Creatinine Ratio 25.3 LAB CHEMISTRY METHOD 02/19/2025 10:17 AM [facility] Calcium 9.5 8.5 - 10.5 mg/dL LAB CHEMISTRY METHOD 02/19/2025 10:17 AM [facility] Blood Venous blood specimen / Unknown Venipuncture / Unknown 02/19/2025 8:04 AM EDT 02/19/2025 9:20 AM EDT Arun Flannery MD LAB BLOOD ORDERABLES Final R esult [facility] [address] [place] [address], * Complete blood count (02/19/2025 8:04 AM EDT) WBC 6.8 4.8 - 10.8 K/mcL LAB HEMETOLOGY METHOD 02/19/2025 9:50 AM [facility] RBC 4.30 3.80 - 4.80 M/mcL LAB HEMETOLOGY METHOD 02/19/2025 9:50 AM T [facility] Hemoglobin 13.1 11.5 - 16.0 g/dL LAB HEMETOLOGY METHOD 02/19/2025 9:50 AM EDT [facility] Hematocrit 40.0 35.0 - 47.0 % LAB HEMETOLOGY METHOD 02/19/2025 9:50 AM EDT [facility] MCV 92.6 79.0 - 98.0 FL LAB HEMETOLOGY METHOD 02/19/2025 9:50 AM EDT [facility] MCH 30.3 27.0 - 32.0 pcg LAB HEMETOLOGY METHOD 02/19/2025 9:50 AM EDT [facility] MCHC 32.8 32.0 - 37.0 g/dL LAB HEMETOLOGY METHOD 02/19/2025 9:50 AM EDT [facility] RDW 11.9 11.0 - 15.0 % LAB HEMETOLOGY METHOD 02/19/2025 9:50 AM EDT [facility] Platelets 239 130 - 400 K/mcL LAB HEMETOLOGY METHOD 02/19/2025 9:50 AM EDT [facility] MPV 10.6 7.0 - 11.0 FL LAB HEMETOLOGY METHOD 02/19/2025 9:50 AM EDT [facility] NRBC 0.0 <1.0 % LAB HEMETOLOGY METHOD 02/19/2025 9:50 AM EDT [facility] NRBC Absolute 0.00 <0.10 K/mcL LAB HEMETOLOGY METHOD 02/19/2025 9:50 AM EDT [facility] Blood Venous blood specimen / Unknown Venipuncture / Unknown 02/19/2025 8:04 AM EDT 02/19/2025 9:20 AM EDT us Arun Flannery MD LAB BLOOD ORDERABLES Final R esult [facility] [place] [facility] [address] [place] [address], documented in this encounter Visit Diagnoses Diagnosis Essential (primary) hypertension Unspecified essential hypertension documented in this encounter Care Teams Managed Security Sales Consultant Relationship Specialty Start Date End Date Jose Cedillo MD [address] [place] [phone] PCP - General 02/28/11 documented as of this encounter
--- OUTSIDE RECORDS SUMMARY | 2025-08-11 05:50 | XMS_ITS | Encounter Summary ---
Author Organization [facility] Address [address] [place] [address] Care Team Providers Care Switchgear Repairer Name Role Phone Jose Cedillo MD Primary Care Provider [phone] Encounter Details Date Type Department Care Team (Late st Contact Info) Description 07/15/2025 Results Follow-Up [facility] Emergency [address] [place] [address] Mary Villar RN Social History [...] Author Yes 02/05/2025 8:48 PM EDT Prisca Rodrigeuz RN * Do you have serious difficulty [...] Spoke with facility and lawyer augustus at [phone]. He stated she is ok and will call to follow up with pcp documented in this encounter Plan of Treatment Not on file documented as of this encounter Visit Diagnoses Not on filedocumented in this encounter Care Teams Switchgear Repairer Relationship Specialty Start Date End Date Jose Cedillo MD [facility] [place] [phone] PCP - General 02/28/11 documented as of this encounter
--- OUTSIDE RECORDS SUMMARY | 2025-08-11 05:50 | XMS_ITS | Encounter Summary ---
Author Organization [facility] Address [address] [place] [address] Care Team Providers Care Cotton Machine Operator Name Role Phone Jose Cedillo MD Primary Care Provider [phone] Encounter Details Date Type Department Care Team (Late st Contact Info) Description 03/11/2025 Lab Requisition [facility] - Main Lab [address] [place] [address] Arun Flannery MD [address] [place], [place] [phone] Hyperlipidemia, unspecified Social History Tobacco Use Types [...] unspecified documented in this encounter Care Teams Cotton Machine Operator Relationship Specialty Start Date End Date Jose Cedillo MD [address] [place] [phone] PCP - General 02/28/11 documented as of this encounter
--- OUTSIDE RECORDS SUMMARY | 2025-08-11 05:50 | XMS_ITS | Clinical Summary ---
Author Organization [facility] Address [address] [place] [address] Phone Care Team Providers Care Patternmaker Wood Name Role Phone Jose Cedillo MD Primary Care Provider [phone] Allergies Active Allergy Reactions Criticality Noted Date [...] Department Care Team Description 07/15/2025 Results Follow-Up [facility] [address] [place] [phone] Mary Villar RN 07/14/2025 5:00 PM EDT - 07/15/2025 12:03 AM EDT Emergency [facility] Emergency [address] [place] [phone] Chloe Abdi MD Wyman, Tim, MD Fall, initial encounter (Primary Dx) Discharge Disposition: Home or Self Care 05/18/2025 4:16 AM EDT - 05/18/2025 5:29 AM EDT Emergency [facility] Emergency [address] [place] [phone] Celine Cochran MD History of dementia (Primary Dx) Discharge Disposition: Home or Self Care 05/15/2025 3:42 PM EDT - 05/15/2025 6:46 PM EDT Emergency [facility] Emergency [address] [place] [phone] Kiran Krishnamurthy MD Zaidi, Mansoor Anwer, MD Dementia with behavioral disturbance (CMS/[facility] V24, CMS/[facility] V28) (Primary Dx) Discharge Disposition: Home or Self Care from Last 3 Months Medical History Medical History Date Comments Anxiety Dementia (CMS/HCC V24, CMS/[facility] V28) Social History Tobacco Use Types Packs/Day [...] Impression: No pelvic fracture identified. Telerad GIRISH ([id number]) -------- FINAL REPORT -------- Dictated By: Anna Dodd Dictated Date: 07/15/2025 09:23 ET Assigned Physician: Anna Dodd Reviewed and Electronically Signed By: Anna Dodd Signed Date: 07/15/2025 09:25 ET Workstation ID: [id number] Transcribed By: Self Edit Transcribed Date: 07/15/2025 [...] well-maintained. No femoral neck fracture is seen. FUEL YARD OPERATOR shunt tubing is partially imaged. A large [...] is well-maintained. No femoral neckfracture is seen. FUEL YARD OPERATOR shunt tubing is partially imaged. A large amount of stool is seenwithin the colon and rectum. IMPRESSION: Impression: No pelvic fracture identified. Telerad [place] ([id number]) -------- FINAL REPORT -------- Dictated By: Anna Dodd Dictated Date: 07/15/2025 09:23 ET Assigned Physician: Anna Dodd Reviewed and Electronically Signed By: Anna Dodd Signed Date: 07/15/2025 09:25 ET Workstation ID: [id number] Transcribed By: Self Edit Transcribed Date: 07/15/2025 09:23 ET us Chloe Abdi MD IMG XR PROCEDURES Final Result * XR Chest 1 View (07/14/2025 9:22 PM EDT) Anatomical Region Laterality Modality Body Radiographic Susie ging 07/15/2025 9:27 AM EDT Impressions 07/15/2025 9:30 AM EDT Impression: 1. Lungs grossly clear. 2. Thoracic vertebral compression fractures, including a potentially new fracture since 09/04/24. Telerad PA ([id number]) -------- FINAL REPORT -------- Dictated By: Anna Dodd Dictated Date: 07/15/2025 09:27 ET Assigned Physician: Anna Dodd Reviewed and Electronically Signed By: Anna Dodd Signed Date: 07/15/2025 09:30 ET Workstation ID: [id number] Transcribed By: Self Edit Transcribed Date: 07/15/2025 09:27 ET Narrative 07/15/2025 9:30 AM EDT History: Fall. Chest pain. Comparison: 09/04/24 Findings: AP upright chest. This is a suboptimal inspiration. The cardiac silhouette appears mildly enlarged and the thoracic aorta is tortuous. The pulmonary vascularity is within normal limits. The lungs are grossly clear. FUEL YARD OPERATOR shunt tubing projects over the right hemithorax, [...] normal limits. The lungs are grossly clear. FUEL YARD OPERATOR shunt tubing projects over the right hemithorax, unchanged. Twoadjacent vertebral fractures are seen in the mid thoracic spine, only oneof which is visualized on the previous exam. IMPRESSION: Impression: 1. Lungs grossly clear. 2. Thoracic vertebral compression fractures, including a potentially newfracture since 09/04/24. Telerad PA ([id number]) -------- FINAL REPORT -------- Dictated By: Anna Dodd Dictated Date: 07/15/2025 09:27 ET Assigned Physician: Anna Dodd Reviewed and Electronically Signed By: Anna Dodd Signed Date: 07/15/2025 09:30 ET Workstation ID: [id number] Transcribed By: Self Edit Transcribed Date: 07/15/2025 [...] tissues: Normal Additional abnormality: Right frontal approach FUEL YARD OPERATOR shunt. Atherosclerosis calcification of the distal carotid [...] tissues: Normal Additional abnormality: Right frontal approach FUEL YARD OPERATOR shunt. Atherosclerosis calcification of the distal carotid artery and vertebral artery. Mucosal thickening of the bilateral maxillary sinus. IMPRESSION: Age-related atrophy with chronic microvascular leukomalacia. No hemorrhage, mass effect, or acute findings identified. This document has been electronically signed by: Arian Gaitan MD on 07/14/2025 19:35:00 Chloe Abdi MD IMG CT PROCEDURES Final Result * (ABNORMAL) Urinalysis with reflex microscopic and culture (07/14/2025 6:47 PM EDT) Specific [place] Urine 1.017 1.003 - 1.030 LAB URINALYSIS - AUTOMATED METHOD 07/14/2025 8:07 PM [facility] pH, Urine 7.0 5.0 - 8.0 pH LAB URINALYSIS - AUTOMATED METHOD 07/14/2025 8:07 PM [facility] Leukocytes, Urine Small(A) Negative LAB URINALYSIS - AUTOMATED METHOD 07/14/2025 8:07 PM [facility] Nitrite, Urine Negative Negative LAB URINALYSIS - AUTOMATED METHOD 07/14/2025 8:07 PM [facility] Protein, Urine Negative <=Trace mg/dL LAB URINALYSIS - AUTOMATED METHOD 07/14/2025 8:07 PM [facility] Glucose, Urine Negative Negative mg/dL LAB URINALYSIS - AUTOMATED METHOD 07/14/2025 8:07 PM [facility] Ketones, Urine Negative Negative mg/dL LAB URINALYSIS - AUTOMATED METHOD 07/14/2025 8:07 PM [facility] Urobilinogen, Urine 1.0 0.2 - 1.0 mg/dL LAB URINALYSIS - AUTOMATED METHOD 07/14/2025 8:07 PM [facility] Bilirubin, Urine Negative Negative LAB URINALYSIS - AUTOMATED METHOD 07/14/2025 8:07 PM [facility] Blood, Urine Negative Negative LAB URINALYSIS - AUTOMATED METHOD 07/14/2025 8:07 PM [facility] RBC, Urine 2.0 0 - 4 /HPF LAB URINALYSIS - AUTOMATED METHOD 07/14/2025 8:07 PM [facility] WBC, Urine 3.5 0 - 4 /HPF LAB URINALYSIS - AUTOMATED METHOD 07/14/2025 8:07 PM [facility] Squamous Epithelial, Urine 28 0 - 60 /LPF LAB URINALYSIS - AUTOMATED METHOD 07/14/2025 8:07 PM [facility] Bacteria, Urine Negative Negative /HPF LAB URINALYSIS - AUTOMATED METHOD 07/14/2025 8:07 PM [facility] Hyaline Casts, Urine 0.4 0 - 3 /LPF LAB URINALYSIS - AUTOMATED METHOD 07/14/2025 8:07 PM [facility] Urine Urine specimen obtained by clean catch procedure / Unknown Non-blood Collection / Unknown 07/14/2025 6:47 PM EDT 07/14/2025 6:57 PM EDT us Chloe Abdi MD LAB URINE ORDERABLES Final Res ult [facility] [address] [place] [address], * Connelly urine culture tube (07/14/2025 6:47 PM EDT) [facility] Extra Tube Hold for add-ons. 07/14/2025 8:01 PM EDT [facility] Comment:Auto resulted. Urine Urine specimen obtained by clean catch procedure / Unknown Non-blood Collection / Unknown 07/14/2025 6:47 PM EDT 07/14/2025 6:57 PM EDT us Chloe Abdi MD LAB URINE ORDERABLES Final Res ult Performing Organization Address City/[facility]/ZIP Co de Phone Number [facility] [address] [place] [address], [place] [phone] * Culture urine (07/14/2025 6:47 PM EDT) [facility] Culture, Urine 10,000-49,000 CFU/mL Mixed bacterial morphotypes present suggestive of possible contamination during collection. Suggest appropriate recollection if clinically indicated. 07/15/2025 1:21 PM EDT [facility] Urine Urine specimen obtained by clean catch procedure / Unknown Non-blood Collection / Unknown 07/14/2025 6:47 PM EDT 07/14/2025 8:07 PM EDT us Chloe Abdi MD LAB MICROBIOLOGY - GENERAL ORD ERABLES Final Result Performing Organization Address [facility]/ZIP Co de Phone Number [facility] [address] [place] [address], [place] [phone] * Basic metabolic panel (02/19/2025 8:04 AM EDT) [facility] Sodium 140 133 - 145 mmol/L LAB CHEMISTRY METHOD 02/19/2025 10:17 AM EDT [facility] Potassium 3.9 3.5 - 5.5 mmol/L LAB CHEMISTRY METHOD 02/19/2025 10:17 AM EDT [facility] Chloride 108 96 - 110 mmol/L LAB CHEMISTRY METHOD 02/19/2025 10:17 AM [facility] CO2 27 21 - 32 mmol/L LAB CHEMISTRY METHOD 02/19/2025 10:17 AM [facility] Anion Gap 5 3 - 11 LAB CHEMISTRY METHOD 02/19/2025 10:17 AM [facility] Glucose 83 70 - 100 mg/dL LAB CHEMISTRY METHOD 02/19/2025 10:17 AM [facility] BUN 21 5 - 25 mg/dL LAB CHEMISTRY METHOD 02/19/2025 10:17 AM [facility] Creatinine 0.83 0.50 - 1.10 mg/dL LAB CHEMISTRY METHOD 02/19/2025 10:17 AM [facility] eGFR 68 >=60 mL/min/1. 73m2 LAB CHEMISTRY METHOD 02/19/2025 10:17 AM [facility] Comment:Calculation based on the [...] MD LAB BLOOD ORDERABLES Final R esult [facility]) [facility] [address] [place] [address], from Last 3 Months or Most Recently Relevant to Health Maintenance Insurance [facility] Advance Directives Documents on File Type Date Recorded Patient Salesforce Business Analyst Expl anation Advance Directives and Living Will [...] Branch Other Health Care Agent Care Teams Patternmaker Wood Relationship Specialty Start Date End Date Jose Cedillo MD [address] [place] [address] PCP - General 02/28/11
--- OUTSIDE RECORDS SUMMARY | 2025-08-11 05:50 | XMS_ITS | Data Portability ---
Author Organization [place] [facility] Address [address] [place] [phone] Care Team Providers Care Rivet Maker Name Role Phone HERNANDEZAURORA BLAKE Primary Care Provider [phone] Assessment Encounter Date Assessment Date Assessment LastModified [...] I have accessed patient records on the [employer]. This information was pertinent in my medical decision making today. Time On Scene with Patient: 00:33:34 alvarado Not available 04/08/2019 12:10:59 Plan of Treatment Reminders Order Date Submit Date Provider Last Modified By Organization Details Last Modified Time Details Appointments None recorded. Lab rapid flu (A+B) 2018 019 alvarado [facility], [address] [place] [address], [phone], 9 21:25:33 Referral None recorded. Procedures None recorded. Surgeries None recorded. Imaging XR, chest, 2 view 2018 019 [facility] ([facility] [address] [place] [address], [place], [address], 9 15:28:38 Medication Orders acetaminop hen 325 mg tablet 2018 019 [id number], [address] [place], [address], 9 21:13:37 acetaminop hen 325 mg tablet 2018 019 [id number], [address] [place], [address], 9 21:13:40 Tessalon Perles 100 mg capsule 2018 019 [id number], [address] [place], [address], 9 21:13:40 erythromyc in 5 mg/gram (0.5 %) eye ointment 2018 019 [id number], [address] [place], [address], 9 21:13:42 Flonase Allergy Relief 50 mcg/actuat ion nasal spray,susp ension 2018 019 [id number], [address] [place], [address], 9 10:05:55 Patient TargetsNo targets recorded. Patient Instructions Encounter Date Encounter Id Patient Instructions Last Modified By Organization Details Last Modified Time 04/05/2019 [id number] pinkeye: care instructions nyuzych Not available 04/05/2019 [...] (A+B) Flu A negati ve Not Available [facility] [address] [place], [address], 04/05/2019 20:53:20 04/05/20 19 04/05/2019 rapid flu (A+B) Flu B negati ve Not Available [facility] [address] [place], [address], 04/05/2019 20:53:20 04/07/20 19 XR, chest , 2 view No observ ation record ed. [facility] ([facility]) [address], [place], [address], 04/08/2019 15:37:43 Result Notes None recorded. Medical [...] Relief 50 mcg/actuati on nasal spray,suspe nsion [place] 1 spray every day by intranasa l [...] Never Smoker [facility] [address], [place], [address], [place] [facility] 04/08/2019 12:06:52 Within The [...] Response Diabetes N Coronary Artery Disease N High Cholesterol N Pulmonary Embolism N Cancer N Hypertension Y Stroke N Asthma N COPD N Depression N Kidney Disease N Gynecological HistoryNo gynecological history recorded. Obstetrics History GPAL:G 0 P 0 0 0 0 Past Encounters Encounter ID Performer Location Encounter Start Date Encounter Closed Date Diagnosis/Indication Diagnosis SNOMED-CT Code Diagnosis ICD10 Code Diagnosis IMO Codes Diagnosis Note [id number] [facility] [address] [place] [address] 04/05/2019 20:43:47 04/08/2019 19:06:39 Bacterial conjunctivitis 130585850 H10.9 Acute uppe r respiratory infection 55384376 J06.9 Fever 981467870 R50.9 Cough 00062707 R05 Health Concerns Section Related Observation LastModified by Organization Detai ls LastModified Time None Recorded Concern Status LastModified by Organization Details LastModified Time None Recorded Advance Directives Directive None Recorded Payers Insurance Date Sequence Insurance Name Policy Number Policy Macias Covered Member ID Macias Member ID Guarantor Name 04/10/2019 1 [facility] IN[facility]AN (INDEMNITY) [id number] Shari Bowles [id number] Shari Bowles 04/05/2019 1 *SELF PAY* Shari Bowles [id number] Shari Bowles Notes Date Note Type Note [...] dementia, osteoarthritis [facility] [address], [place], [address], [place] [facility] 04/08/2019 12:11:03 OBGyn Episode No OBEpisode recorded.
--- OUTSIDE RECORDS SUMMARY | 2025-08-11 05:50 | XMS_ITS | Encounter Summary ---
Author Organization [facility] Address [address] [place] [address] Care Team Providers Care Business Rules Analyst Name Role Phone Jose Cedillo MD Primary Care Provider [phone] Encounter Details Date Type Department Care Team (Late st Contact Info) Description 02/22/[address] [facility] [address] [place] [address] Arun Flannery MD [address] [place] [address] Unspecified dementia, unspecified severity, without [...] disturbance, mood disturbance, and anxiety (CMS/HCC V24, CMS/[facility] V28) Essential (primary) hypertension Unspecified essential hypertension Hyperlipidemia, unspecified documented in this encounter Care Teams Business Rules Analyst Relationship Specialty Start Date End Date Jose Cedillo MD [address] [place] [phone] PCP - General 02/28/11 documented as of this encounter
--- OUTSIDE RECORDS SUMMARY | 2025-08-11 05:50 | XMS_ITS | Encounter Summary ---
Author Organization [facility] Address [address] [place] [address] Care Team Providers Care Object Oriented Programmer Name Role Phone Jose Cedillo MD Primary Care Provider [phone] Encounter Details Date Type Department Care Team (Late st Contact Info) Description 02/14/2025 Lab Requisition [facility] - Main Lab [address] [place] [address] Arun Flannery MD [address] [place] [address] Unspecified dementia, unspecified severity, without [...] disturbance, mood disturbance, and anxiety (CMS/HCC V24, CMS/[facility] V28) Essential (primary) hypertension Unspecified essential hypertension Hyperlipidemia, unspecified documented in this encounter Care Teams Object Oriented Programmer Relationship Specialty Start Date End Date Jose Cedillo MD [address] [place] [phone] PCP - General 02/28/11 documented as of this encounter
--- OUTSIDE RECORDS SUMMARY | 2025-08-11 05:50 | XMS_ITS | Encounter Summary ---
Author Organization [facility] Address [address] [place] [address] Care Team Providers Care Cruise Coordinator Name Role Phone Jose Cedillo MD Primary Care Provider [phone] Encounter Details Date Type Department Care Team (Late st Contact Info) Description 02/11/2025 Lab Requisition [facility] - Main Lab [address] [place] [address] Arun Flannery MD [address], [place] [phone] Unspecified dementia, unspecified severity, without behavioral disturbance, [...] mmol/L LAB CHEMISTRY METHOD 02/11/2025 10:[address] [facility] Potassium 4.2 3.5 - 5.5 mmol/L LAB CHEMISTRY METHOD 02/11/2025 10:[address] [facility] Chloride 104 96 - 110 mmol/L LAB CHEMISTRY METHOD 02/11/2025 10:[address] [facility] CO2 30 21 - 32 mmol/L LAB CHEMISTRY METHOD 02/11/2025 10:[address] [facility] Anion Gap 5 3 - 11 LAB CHEMISTRY METHOD 02/11/2025 10:[address] [facility] Glucose 79 70 - 100 mg/dL LAB CHEMISTRY METHOD 02/11/2025 10:[address] [facility] BUN 20 5 - 25 mg/dL LAB CHEMISTRY METHOD 02/11/2025 10:[address] [facility] Creatinine 0.81 0.50 - 1.10 mg/dL LAB CHEMISTRY METHOD 02/11/2025 10:[address] [facility] eGFR 70 >=60 mL/min/1. 73m2 LAB CHEMISTRY METHOD 02/11/2025 10:[address] [facility] Comment:Calculation based on the Chronic Kidney Disease Epidemiology Collaboration (CKD-EPI) equation refit without adjustment for race. BUN/Creatinine Ratio 24.7 LAB CHEMISTRY METHOD 02/11/2025 10:[address] [facility] Calcium 10.4 8.5 - 10.5 mg/dL LAB CHEMISTRY METHOD 02/11/2025 10:[address] [facility] Blood Venous blood specimen / Unknown Venipuncture / Unknown 02/11/2025 7:47 AM EDT 02/11/2025 9:35 AM EDT us Arun Flannery MD LAB BLOOD ORDERABLES Final R esult [facility] [address] [place] [address], * Complete blood count (02/11/2025 7:47 AM EDT) WBC 7.2 4.8 - 10.8 K/mcL LAB HEMETOLOGY METHOD 02/11/2025 10:23 AM EDT [facility] RBC 4.40 3.80 - 4.80 M/mcL LAB HEMETOLOGY METHOD 02/11/2025 10:23 AM EDT [facility] Hemoglobin 13.3 11.5 - 16.0 g/dL LAB HEMETOLOGY METHOD 02/11/2025 10:23 AM EDT [facility] Hematocrit 40.7 35.0 - 47.0 % LAB HEMETOLOGY METHOD 02/11/2025 10:23 AM EDT [facility] MCV 92.3 79.0 - 98.0 FL LAB HEMETOLOGY METHOD 02/11/2025 10:23 AM EDT [facility] MCH 30.2 27.0 - 32.0 pcg LAB HEMETOLOGY METHOD 02/11/2025 10:23 AM EDT [facility] MCHC 32.7 32.0 - 37.0 g/dL LAB HEMETOLOGY METHOD 02/11/2025 10:23 AM EDT [facility] RDW 11.8 11.0 - 15.0 % LAB HEMETOLOGY METHOD 02/11/2025 10:23 AM EDT [facility] Platelets 233 130 - 400 K/mcL LAB HEMETOLOGY METHOD 02/11/2025 10:23 AM EDT [facility] MPV 11.0 7.0 - 11.0 FL LAB HEMETOLOGY METHOD 02/11/2025 10:23 AM EDT [facility] NRBC 0.0 <1.0 % LAB HEMETOLOGY METHOD 02/11/2025 10:23 AM EDT [facility] NRBC Absolute 0.00 <0.10 K/mcL LAB HEMETOLOGY METHOD 02/11/2025 10:23 AM EDT [facility] Blood Venous blood specimen / Unknown Venipuncture / Unknown 02/11/2025 7:47 AM EDT 02/11/2025 9:35 AM EDT us Arun Flannery MD LAB BLOOD ORDERABLES Final R esult [facility] [address] [place] [address], documented in this encounter Visit Diagnoses Diagnosis Unspecified dementia, unspecified severity, without behavioral disturbance, psychotic disturbance, mood disturbance, and anxiety (CMS/HCC V24, CMS/HCC V28) Anxiety disorder, unspecified Essential (primary) hypertension Unspecified essential hypertension Hyperlipidemia, unspecified Hydrocephalus, unspecified (CMS/HCC V24, CMS/HCC V28) documented in this encounter Care Teams Cruise Coordinator Relationship Specialty Start Date End Date Jose Cedillo MD [address] [place] [address] PCP - General 02/28/11 documented as of this encounter
[2025-08-11 06:26] LABS: Hematocrit 36.3 % (37.0-47.0); Hemoglobin 12.0 g/dl (12.0-16.0); Imm Gran Abs Auto 0.04 X10*3/uL (0.00-0.03); Imm Gran Pct Auto 0.4 % (0.0-0.4); Lymphocytes Absolute Auto 1.3 X10*3/uL (1.2-4.9); Mean Corpuscular HGB Conc 33.1 g/dl (31.0-35.0); Mean Corpuscular Hemoglobin 30.8 pg (27.0-33.0); Mean Corpuscular Volume 93.3 fL (80.0-98.0); NRBC Abs Auto 0.000 X10*3/uL (0.0-0.012); NRBC Pct Auto 0.0 /100WBC (0.0-0.2); Platelet Count 217 X10*3/uL (160-400); Red Blood Count 3.89 X10*6/uL (4.20-5.50); White Blood Count 9.9 X10*3/uL (4.8-10.8)
[2025-08-11 06:38] LABS: Anion Gap 12 (12-20); Blood Urea Nitrogen 20 mg/dL (9-16); Calcium 9.1 mg/dL (8.4-10.2); Carbon Dioxide 24 mmol/L (22-29); Chloride 110 mmol/L (96-108); Estimated Glomerular Filt Rate > 60; Potassium 3.3 mmol/L (3.3-5.1); Sodium 143 mmol/L (135-145)
== END 2025-08-11 05:46 | disposition home or self-care (01) ==
LOC: HO.MMNH1L 05:45
PROVIDERS: Visit Provider Physician Assistant Medical
DX: Z13.89 Encounter for screening for other disorder (principal)
CPT/HCPCS: 36415; 80048; 85025

== ENCOUNTER 2025-08-18 05:27 | Outpatient (REF) | payer OTHER, SELFPAY ==
--- OUTSIDE RECORDS SUMMARY | 2025-08-16 23:59 | XMS_ITS | Continuity of Care Document ---
Author Organization [facility] Address [address] [place] [address]- Care Team Providers Care Sanitation Truck Driver Name Role Phone Jose Cedillo MD Primary Care Physician Encounter [facility] Date(s): 07/17/25 - 08/16/25 [facility] [address] [place] [address]- Encounter Type: Triage Allergies, Adverse Reactions, Alerts Substance Criticality Severity Reaction Reaction Severity Status omeprazole Facial swelling Act lisa influenza virus vaccine Bloated abdomen Active Zestril Pruritus NOS [D]Cough Active Norvasc Rash Active Immunizations Given and Recorded Vaccine Date Status Refusal Reason tetanus-diphtheria toxoids (Td) 1 03/18/24 Given tetanus-diphtheria toxoids (Td) 2 03/10/14 Given tetanus-diphtheria toxoids (Td) 3 03/01/04 Given RSV vaccine preF3, recombinant 10/12/23 Recorded pneumococcal 20-valent conjugate vaccine 4 02/02/23 Given GDDA-UvO-2bZKO 5y-11y bivalent booster 5 06/28/22 Recorded SARS-CoV-2 mRNA (ksckabr-udrm-rludr) vax 02/03/22 Recorded SARS-CoV-2 mRNA (wksuaef-skpx-zihnh) vax 08/04/21 Recorded SARS-CoV-2 mRNA (fwceamu-iolg-xrjly) vax 11/25/20 Recorded SARS-CoV-2 mRNA (leucaba-zkly-iudbv) vax 11/03/20 Recorded zoster vaccine, inactivated 12/07/21 Recorded zoster vaccine, inactivated 10/05/21 Recorded SARS-CoV-2 (COVID-19) mRNA BNT-162b2 vac 08/07/21 Recorded SARS-CoV-2 (COVID-19) mRNA BNT-162b2 vac 11/04/20 Recorded pneumococcal 13-valent vaccine 6 03/30/16 Given pneumococcal 23-valent vaccine 7 09/09/13 Given influenza virus vaccine, inactivated 8 08/22/11 [facility] influenza virus vaccine, inactivated 9 08/24/10 [facility] Influenza Virus Vaccine (oldterm) 10 08/26/08 Give n Influenza Virus Vaccine (oldterm) 11 03/28/06 Give n Zoster Vaccine Live 12 11/23/07 Given Pneumococcal Poly (PPV23) (oldterm) 01/01/02 Given 1Result Comment: [id number] given w/out incident 2Result Comment: [03/10/2014] given w/out incident 3Admin Note: mass bio 4Result Comment: [id number] given w/out incident [facility] 6Admin Note: [facility],form received 7Result Comment: [09/09/2013] given w/out incident 8Admin Note: allergy 9Admin Note: pt allergic 10Admin Note: pt allergic 11Admin Note: allergic to vaccine 12Admin Note: denies allergies, vaccine mixed w/sterile diluent lot #[id number], exp 12/16, injection givenw/o incident Medications atorvastatin 10 mg oral tablet 1 tablet = 10 mg, By Mouth, Daily at bedtime, # 30 tablet, 5 Refills, Maintenance, 06/03/25 12:27:00PM EDT, Tablet, [facility], Partial fill upon patient request if the prescription is for a schedule II opioid drug., 167, cm, 10/18/24 13:08:00 EST, Height Start Date: 06/03/25 Stop Date: 11/30/25 Status: Ordered Medication Dispense Status: Completed Quantity: 30.0 Unit: tablet Total Allowed Fills: 6 Fills Dispensed: 0 calcium-vitamin D 600 mg-400 intl units oral tablet 1 tablet, By Mouth, 2 times a day, # 56 tablet, 5 Refills, Maintenance, 06/03/25 12:26:00 [facility], 0, 1 tablet By Mouth 2 times a day, 167, cm, 10/18/24 13:08:00 EST, Height Start Date: 06/03/25 Status: Ordered Medication Dispense Status: Completed Quantity: 56.0 Unit: tablet Total Allowed Fills: 6 Fills Dispensed: 0 carvedilol 3.125 mg oral tablet 3.125 mg, 1, tablet, By Mouth, 2 times a day, Maintenance, 07/26/25 3:44:00 PM EDT, Partial fill upon patient request if the prescription is for a schedule II opioid drug. Start Date: 07/26/25 Status: Ordered Medication Dispense Status: Completed Total Allowed Fills: 1 Fills Dispensed: 0 Colace sodium 100 mg oral capsule 100 mg, 1, capsule, By Mouth, 2 times a day, hold if having diarrhea, # 60 capsule, Refills 11, Tot. Refills 11, Maintenance, 07/17/25 12:21:00 PM EDT, Route to Pharmacy Electronically, [facility], Partial fill upon patient request if the prescription is for a schedule II opioid drug., 167, cm, 10/18/24 13:08:00 EST, Height Start Date: 07/17/25 Stop Date: 07/12/26 Status: Ordered Medication Dispense Status: Completed Quantity: 60.0 Unit: capsule Total Allowed Fills: 12 Fills Dispensed: 0 donepezil 23 mg oral tablet 1 tablet = 23 mg, By Mouth, Daily at bedtime, # 90 tablet, 2 Refills, Maintenance, 06/03/25 12:26:00PM EDT, Tablet, [facility], increase in dose, 167, cm, 10/18/24 13:08:00 EST, Height Start Date: 06/03/25 Stop Date: 02/28/26 Status: Ordered Medication Dispense Status: Completed Quantity: 90.0 Unit: tablet Total Allowed Fills: 3 Fills Dispensed: 0 doxepin 10 mg oral capsule 2 capsule, By Mouth, Daily at bedtime, # 60 capsule, 5 Refills, Maintenance, 06/03/25 12:26:00 PM EDT, [facility], 167, cm, 10/18/24 13:08:00 EST, Height Start Date: 06/03/25 Status: Ordered Medication Dispense Status: Completed Quantity: 60.0 Unit: capsule Total Allowed Fills: 6 Fills Dispensed: 0 gabapentin 100 mg oral capsule 100 mg, 1, capsule, By Mouth, 3 times a day, # 90 capsule, Refills 4, Tot. Refills 4, Maintenance, 05/22/25 3:54:00 PM EDT, Route to Pharmacy Electronically, [facility], dose increased, 167, cm, 10/18/24 13:08:00 EST, Height Start Date: 05/22/25 Stop Date: 10/19/25 Status: Ordered Medication Dispense Status: Completed Quantity: 90.0 Unit: capsule Total Allowed Fills: 5 Fills Dispensed: 0 lisinopril 5 mg oral tablet 5 mg, 1, tablet, By Mouth, Daily, # 30 tablet, Refills 5, Tot. Refills 5, Maintenance, 06/03/25 12:26:00 PM EDT, Route to Pharmacy Electronically, [facility], Partial fill upon patientrequest if the prescription is for a schedule II opioid drug., 167, cm, 10/18/24 13:08:00 EST, Height Start Date: 06/03/25 Stop Date: 11/30/25 Status: Ordered Medication Dispense Status: Completed Quantity: 30.0 Unit: tablet Total Allowed Fills: 6 Fills Dispensed: 0 olanzapine 2.5 mg oral tablet 2.5 mg, 1, tablet, By Mouth, 2 times a day, # 60 tablet, Refills 5, Tot. Refills 5, Maintenance, 05/30/25 1:29:00 PM EDT, Route to Pharmacy Electronically, [facility], Partial fill upon patient request if the prescription is for a schedule II opioid drug., 167, cm, 10/18/24 13:08:00 EST, Height Start Date: 05/30/25 Stop Date: 11/26/25 Status: Ordered Medication Dispense Status: Completed Quantity: 60.0 Unit: tablet Total Allowed Fills: 6 Fills Dispensed: 0 sertraline 100 mg oral tablet 1 tablet = 100 mg, By Mouth, Daily, # 30 tablet, 7 Refills, Maintenance, 06/03/25 12:26:00 PM EDT, Tablet, [facility], increase in meds, 167, cm, 10/18/24 13:08:00 EST, Height Start Date: 06/03/25 Stop Date: 01/29/26 Status: Ordered Medication Dispense Status: Completed Quantity: 30.0 Unit: tablet Total Allowed Fills: 8 Fills Dispensed: 0 shower bench shower bench, See Instructions, # 1 each, Refills 0, Tot. Refills 0, Maintenance, use when taking ashowing to prevent falling Dx: R29.6,, 10/06/22 1:46:00 PM EST, Supply Start Date: 10/06/22 Status: Ordered Medication Dispense Status: Completed Quantity: 1.0 Unit: each Total Allowed Fills: 1 Fills Dispensed: 0 traZODone 50 mg oral tablet See Instructions, 0.5 tablet by Mouth Daily at 17:00 and 0.5 tablet at 21:00, # 30 each, Refills 6,Tot. 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 Dementia Confirmed Active Diverticulosis Confirmed Active Generalized anxiety disorder Confirmed Active 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 Active History of vertebral compression fracture T1- T2 Confirmed 07/15/25 Active History of rhabdomyolysis 1 Confirmed 08/03/18 Active Hypercholesterolemia Confirmed Active Hypertension Confirmed Active Insomnia Confirmed Active 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 pressure hydrocephalus Confirmed 04/26/18 Active Osteoarthritis of left hip Confirmed 07/15/25 Active Osteoporosis Confirmed Active 1admitted to [facility] Social History Social History Type Response Smoking Status Never smoker entered on: 09/09/13 Sex Sex Representation Female (finding) Patient Care team information Care Team Personnel Name: Tavares Stevenson RN Position: S RN Member Role: Primary Care Nurse Name: Yolanda Kaiser RN Position: [facility] RN Member Role: Primary Care Nurse Name: Alvaro Jimenez RN Position: [facility] RN Member Role: Primary Care Nurse Name: Sarah Zarate RN Position: [facility] RN Member Role: Primary Care Nurse Name: Megha Barton Position: [facility] RN Member Role: Primary Care Nurse Name: Candi Moreno RN Position: [facility] RN Member Role: Primary Care Nurse Name: Lew Hanna RN Position: [facility] RN Member Role: Primary Care Nurse Name: Jihan Covarrubias RN Position: [facility] RN Member Role: Primary Care Nurse Name: Jose Cedillo MD Position: [facility] Physician - Primary Care Member Role: PCP Address: [address] [place] [address] [facility] [address] Telecom: Care Team Related Persons Name: MITCH [address] DR Name: JOSHUA PETERSON ATTORN Name: BETY MUSTAFA SOLAR DESIGNER Insurance Providers Guarantor name: [facility] Information #: 1 Payer: [facility] [employer] Payer Identifier: CRISTEL Member Number: [id number] Group Number: [id number] Subscriber Identifier: CRISTEL Relationship to Subscriber: self Coverage Type: Commercial Indemnity Coverage Verification Date: CRISTEL Telecom: NA Address:
[2025-08-18 05:26] LABS: MANUAL DIFF FLAG NO
--- OUTSIDE RECORDS SUMMARY | 2025-08-18 05:30 | XMS_ITS | Encounter Summary ---
Author Organization [facility] Address [address] [place] [address] Care Team Providers Care Underwater Photographer Name Role Phone Jose Cedillo MD Primary Care Provider [phone] Encounter Details Date Type Department Care Team (Late st Contact Info) Description 03/11/2025 Lab Requisition [facility] [address] [place] [address] Arun Flannery MD [address], [place] [id number] Hyperlipidemia, unspecified Social History Tobacco Use Types [...] unspecified documented in this encounter Care Teams Underwater Photographer Relationship Specialty Start Date End Date Jose Cedillo MD [address] [place] [phone] PCP - General 02/28/11 documented as of this encounter
--- OUTSIDE RECORDS SUMMARY | 2025-08-18 05:30 | XMS_ITS | Clinical Summary ---
Author Organization [facility] Address [address] [place] [address] Phone Care Team Providers Care Forging Press Operator Name Role Phone Jose Cedillo MD Primary Care Provider [phone] Allergies Active Allergy Reactions Criticality Noted Date [...] Department Care Team Description 07/15/2025 Results Follow-Up [facility] Emergency [address] [place] [address] Mary Villar RN 07/14/2025 5:00 PM EDT - 07/15/2025 12:03 AM EDT Emergency [facility] Emergency [address] [place] [address] Chloe Abdi MD Wyman, Tim, MD Fall, initial encounter (Primary Dx) Discharge Disposition: Home or Self Care 05/18/2025 4:16 AM EDT - 05/18/2025 5:29 AM EDT Emergency [facility] Emergency [address] [place] [address] Celine Cochran MD History of dementia (Primary Dx) Discharge Disposition: Home or Self Care from Last 3 Months Medical History Medical History Date Comments Anxiety Dementia ([facility] V24, [facility] V28) Social History Tobacco Use Types Packs/Day [...] Additional history exists Influenza Vaccine (#1) 2025 1, 08/24/2010, 08/26/2008, Additional history exists Social Influencers [...] EDT Impression: No pelvic fracture identified. Telerad PA ([id number]) -------- FINAL REPORT -------- Dictated By: Anna Dodd Dictated Date: 07/15/2025 09:23 ET Assigned Physician: Anna Dodd Reviewed and Electronically Signed By: Anna Dodd Signed Date: 07/15/2025 09:25 ET Workstation ID: [id number] Transcribed By: Self Edit Transcribed Date: 07/15/2025 [...] well-maintained. No femoral neck fracture is seen. SIZING END BANDER shunt tubing is partially imaged. A large [...] is well-maintained. No femoral neckfracture is seen. SIZING END BANDER shunt tubing is partially imaged. A large amount of stool is seenwithin the colon and rectum. IMPRESSION: Impression: No pelvic fracture identified. Telerad GIRISH ([id number]) -------- FINAL REPORT -------- Dictated By: Anna Dodd Dictated Date: 07/15/2025 09:23 ET Assigned Physician: Anna Dodd Reviewed and Electronically Signed By: Anna Dodd Signed Date: 07/15/2025 09:25 ET Workstation ID: [id number] Transcribed By: Self Edit Transcribed Date: 07/15/2025 09:23 ET Chloe Abdi MD IMG XR PROCEDURES Final Result * XR Chest 1 View (07/14/2025 9:22 PM EDT) Anatomical Region Laterality Modality Body Radiographic Susie ging 07/15/2025 9:27 AM EDT Impressions 07/15/2025 9:30 AM EDT Impression: 1. Lungs grossly clear. 2. Thoracic vertebral compression fractures, including a potentially new fracture since 09/04/24. Telerad PA ([id number]) -------- FINAL REPORT -------- Dictated By: Anna Dodd Dictated Date: 07/15/2025 09:27 ET Assigned Physician: Anna Dodd Reviewed and Electronically Signed By: Anna Dodd Signed Date: 07/15/2025 09:30 ET Workstation ID: [id number] Transcribed By: Self Edit Transcribed Date: 07/15/2025 09:27 ET Narrative 07/15/2025 9:30 AM EDT History: Fall. Chest pain. Comparison: 09/04/24 Findings: AP upright chest. This is a suboptimal inspiration. The cardiac silhouette appears mildly enlarged and the thoracic aorta is tortuous. The pulmonary vascularity is within normal limits. The lungs are grossly clear. SIZING END BANDER shunt tubing projects over the right hemithorax, [...] normal limits. The lungs are grossly clear. SIZING END BANDER shunt tubing projects over the right hemithorax, unchanged. Twoadjacent vertebral fractures are seen in the mid thoracic spine, only oneof which is visualized on the previous exam. IMPRESSION: Impression: 1. Lungs grossly clear. 2. Thoracic vertebral compression fractures, including a potentially newfracture since 09/04/24. Telerad GIRISH ([id number]) -------- FINAL REPORT -------- Dictated By: Anna Dodd Dictated Date: 07/15/2025 09:27 ET Assigned Physician: Anna Dodd Reviewed and Electronically Signed By: Anna Dodd Signed Date: 07/15/2025 09:30 ET Workstation ID: [id number] Transcribed By: Self Edit Transcribed Date: 07/15/2025 [...] tissues: Normal Additional abnormality: Right frontal approach SIZING END BANDER shunt. Atherosclerosis calcification of the distal carotid [...] tissues: Normal Additional abnormality: Right frontal approach SIZING END BANDER shunt. Atherosclerosis calcification of the distal carotid artery and vertebral artery. Mucosal thickening of the bilateral maxillary sinus. IMPRESSION: Age-related atrophy with chronic microvascular leukomalacia. No hemorrhage, mass effect, or acute findings identified. This document has been electronically signed by: Arian Gaitan MD on 07/14/2025 19:35:00 Chloe Abdi MD IM CT PROCEDURES Final Result * (ABNORMAL) Urinalysis with reflex microscopic and culture (07/14/2025 6:47 PM EDT) Specific Peak Urine 1.017 1.003 - 1.030 LAB URINALYSIS - AUTOMATED METHOD 07/14/2025 8:07 PM [facility] pH, Urine 7.0 5.0 - 8.0 pH LAB URINALYSIS - AUTOMATED METHOD 07/14/2025 8:07 PM [facility] Leukocytes, Urine Small(A) Negative LAB URINALYSIS - AUTOMATED METHOD 07/14/2025 8:07 PM [facility] Nitrite, Urine Negative Negative LAB URINALYSIS - AUTOMATED METHOD 07/14/2025 8:07 PM [facility] Protein, Urine Negative <=Trace mg/dL LAB URINALYSIS - AUTOMATED METHOD 07/14/2025 8:07 PM [facility] Glucose, Urine Negative Negative mg/dL LAB URINALYSIS - AUTOMATED METHOD 07/14/2025 8:07 PM [facility] Ketones, Urine Negative Negative mg/dL LAB URINALYSIS - AUTOMATED METHOD 07/14/2025 8:07 PM [facility] Urobilinogen, Urine 1.0 0.2 - 1.0 mg/dL LAB URINALYSIS - AUTOMATED METHOD 07/14/2025 8:07 PM [facility] Bilirubin, Urine Negative Negative LAB URINALYSIS - AUTOMATED METHOD 07/14/2025 8:[address] [facility] Blood, Urine Negative Negative LAB URINALYSIS - AUTOMATED METHOD 07/14/2025 8:[address] [facility] RBC, Urine 2.0 0 - 4 /HPF LAB [facility]YSIS - [facility]OMATED METHOD [facility] WBC, Urine 3.5 0 - 4 /HPF LAB URINALYSIS - AUTOMATED METHOD 07/14/2025 8:[address] [facility] Squamous Epithelial, Urine 28 0 - 60 /LPF LAB URINALYSIS - AUTOMATED METHOD 07/14/2025 8:[address] [facility] Bacteria, Urine Negative Negative /HPF LAB URINALYSIS - AUTOMATED METHOD 07/14/2025 8:07 PM [facility] Hyaline Casts, Urine 0.4 0 - 3 /LPF LAB URINALYSIS - AUTOMATED METHOD 07/14/2025 8:07 PM [facility] Urine Urine specimen obtained by clean catch procedure / Unknown Non-blood Collection / Unknown 07/14/2025 6:47 PM EDT 07/14/2025 6:57 PM EDT us Chloe Abid MD LAB URINE ORDERABLES Final Res ult [facility] [address] [place] [address], * Connelly urine culture tube (07/14/2025 6:47 PM EDT) Extra Tube Hold for add-ons. 07/14/2025 8:[address] [facility] Comment:Auto resulted. Urine Urine specimen obtained by clean catch procedure / Unknown Non-blood Collection / Unknown 07/14/2025 6:47 PM EDT 07/14/2025 6:57 PM EDT us Chloe Abdi MD LAB URINE ORDERABLES Final Res ult Performing Organization Address City/[facility]/ZIP Co de Phone Number [facility] [address] [place] [address], [place] [phone] * Culture urine (07/14/2025 6:47 PM EDT) Pathologist [facility] Culture, Urine 10,000-49,000 CFU/mL Mixed bacterial morphotypes present suggestive of possible contamination during collection. Suggest appropriate recollection if clinically indicated. 07/15/2025 1:[address] [facility] Urine Urine specimen obtained by clean catch procedure / Unknown Non-blood Collection / Unknown 07/14/2025 6:47 PM EDT 07/14/2025 8:07 PM EDT us Chloe Abdi MD LAB MICROBIOLOGY - GENERAL ORD ERABLES Final Result Performing Organization Address [facility]/ZIP Co de Phone Number [facility] [address] [place] [address], [place] [phone] * Basic metabolic panel (02/19/2025 8:04 AM EDT) [facility] Sodium 140 133 - 145 mmol/L LAB CHEMISTRY METHOD 02/19/2025 10:[address] [facility] Potassium 3.9 3.5 - 5.5 mmol/L LAB CHEMISTRY METHOD 02/19/2025 10:17 AM [facility] Chloride 108 96 - 110 mmol/L LAB CHEMISTRY METHOD 02/19/2025 10:17 AM [facility] CO2 27 21 - 32 mmol/L LAB CHEMISTRY METHOD 02/19/2025 10:17 AM [facility] Anion Gap 5 3 - 11 LAB CHEMISTRY METHOD [facility] Glucose 83 70 - 100 mg/dL LAB CHEMISTRY METHOD 02/19/2025 10:[address] [facility] BUN 21 5 - 25 mg/dL LAB CHEMISTRY METHOD 02/19/2025 10:[address] [facility] Creatinine 0.83 0.50 - 1.10 mg/dL LAB CHEMISTRY METHOD 02/19/2025 10:[address] [facility] eGFR 68 >=60 mL/min/1. 73m2 LAB CHEMISTRY METHOD 02/19/2025 10:[address] [facility] Comment:Calculation based on the Chronic Kidney Disease Epidemiology Collaboration (CKD-EPI) equation refit without adjustment for race. BUN/Creatinine Ratio 25.3 LAB CHEMISTRY METHOD 02/19/2025 10:[address] [facility] Calcium 9.5 8.5 - 10.5 mg/dL LAB CHEMISTRY METHOD 02/19/2025 10:[address] [facility] Blood Venous blood specimen / Unknown Venipuncture / Unknown 02/19/2025 8:04 AM EDT 02/19/2025 9:20 AM EDT Arun Flannery MD LAB BLOOD ORDERABLES Final R esult [facility] [address] [place] [address], from Last 3 Months or Most Recently Relevant to Health Maintenance Insurance [facility] Advance Directives Documents on File Type Date Recorded Patient Soda Tester Expl anation Advance Directives and Living Will [...] Branch Other Health Care Agent Care Teams Forging Press Operator Relationship Specialty Start Date End Date Jose Cedillo MD [address] [place] [phone] PCP - General 02/28/11
--- OUTSIDE RECORDS SUMMARY | 2025-08-18 05:30 | XMS_ITS | Encounter Summary ---
[facility] Organization [facility] Address [address] [place] [address] Care Team Providers Care Geographic Information Systems Manager Name Role Phone Jose Cedillo MD Primary Care Provider [phone] Encounter Details Date Type Department Care Team (Late st Contact Info) Description 07/15/2025 Results Follow-Up [facility] Emergency [address] [place] [address] Mary Villar RN Social History [...] Spoke with facility and lawyer augustus at [phone]. He stated she is ok and will call to follow up with pcp documented in this encounter Plan of Treatment Not on file documented as of this encounter Visit Diagnoses Not on filedocumented in this encounter Care Teams Geographic Information Systems Manager Relationship Specialty Start Date End Date Jose Cedillo MD [facility] [place] [phone] PCP - General 02/28/11 documented as of this encounter
--- OUTSIDE RECORDS SUMMARY | 2025-08-18 05:31 | XMS_ITS | Encounter Summary ---
Author Organization [facility] Address [address] [place] [address] Care Team Providers Care Salesperson [employer] Name Role Phone Jose Cedillo MD Primary Care Provider [phone] Encounter Details Date Type Department Care Team (Late st Contact Info) Description 02/11/2025 Lab Requisition [facility] - Main Lab [address] [place] [address] Arun Flannery MD [address], [place] [id number] Unspecified dementia, unspecified severity, without behavioral disturbance, [...] mmol/L LAB CHEMISTRY METHOD 02/11/2025 10:43 AM [facility] Potassium 4.2 3.5 - 5.5 mmol/L LAB CHEMISTRY METHOD 02/11/2025 10:43 AM [facility] Chloride 104 96 - 110 mmol/L LAB CHEMISTRY METHOD 02/11/2025 10:43 AM [facility] CO2 30 21 - 32 mmol/L LAB CHEMISTRY METHOD 02/11/2025 10:43 AM [facility] Anion Gap 5 3 - 11 LAB CHEMISTRY METHOD 02/11/2025 10:43 AM [facility] Glucose 79 70 - 100 mg/dL LAB CHEMISTRY METHOD 02/11/2025 10:43 AM [facility] BUN 20 5 - 25 mg/dL LAB CHEMISTRY METHOD 02/11/2025 10:43 AM [facility] Creatinine 0.81 0.50 - 1.10 mg/dL LAB CHEMISTRY METHOD 02/11/2025 10:43 AM [facility] eGFR 70 >=60 mL/min/1. 73m2 LAB CHEMISTRY METHOD 02/11/2025 10:43 AM [facility] Comment:Calculation based on the Chronic Kidney Disease Epidemiology Collaboration (CKD-EPI) equation refit without adjustment for race. BUN/Creatinine Ratio 24.7 LAB CHEMISTRY METHOD 02/11/2025 10:43 AM [facility] Calcium 10.4 8.5 - 10.5 mg/dL LAB CHEMISTRY METHOD 02/11/2025 10:43 AM [facility] Blood Venous blood specimen / Unknown Venipuncture / Unknown 02/11/2025 7:47 AM EDT 02/11/2025 9:35 AM EDT us Arun Flannery MD LAB BLOOD ORDERABLES Final R esult [facility] [address] [place] [address], * Complete blood count (02/11/2025 7:47 AM EDT) WBC 7.2 4.8 - 10.8 K/mcL LAB HEMETOLOGY METHOD 02/11/2025 10:23 AM EDT [facility] RBC 4.40 3.80 - 4.80 M/mcL LAB HEMETOLOGY METHOD 02/11/2025 10:23 AM EDT [facility] Hemoglobin 13.3 11.5 - 16.0 g/dL LAB HEMETOLOGY METHOD 02/11/2025 10:23 AM EDT [facility] Hematocrit 40.7 35.0 - 47.0 % LAB HEMETOLOGY METHOD 02/11/2025 10:23 AM EDT [facility] MCV 92.3 79.0 - 98.0 FL LAB HEMETOLOGY METHOD 02/11/2025 10:23 AM EDT [facility] MCH 30.2 27.0 - 32.0 pcg LAB HEMETOLOGY METHOD 02/11/2025 10:23 AM EDT [facility] MCHC 32.7 32.0 - 37.0 g/dL LAB HEMETOLOGY METHOD 02/11/2025 10:23 AM EDT [facility] RDW 11.8 11.0 - 15.0 % LAB HEMETOLOGY METHOD 02/11/2025 10:23 AM EDT [facility] Platelets 233 130 - 400 K/mcL LAB HEMETOLOGY METHOD 02/11/2025 10:23 AM EDT [facility] MPV 11.0 7.0 - 11.0 FL LAB HEMETOLOGY METHOD 02/11/2025 10:23 AM EDT [facility] NRBC 0.0 <1.0 % LAB HEMETOLOGY METHOD 02/11/2025 10:23 AM EDT [facility] NRBC Absolute 0.00 <0.10 K/mcL LAB HEMETOLOGY METHOD 02/11/2025 10:23 AM EDT [facility] Blood Venous blood specimen / Unknown Venipuncture / Unknown 02/11/2025 7:47 AM EDT 02/11/2025 9:35 AM EDT us Arun Flannery MD LAB BLOOD ORDERABLES Final R esult [facility] [address] [place] [address], documented in this encounter Visit Diagnoses Diagnosis Unspecified dementia, unspecified severity, without behavioral disturbance, psychotic disturbance, mood disturbance, and anxiety (CMS/HCC V24, CMS/HCC V28) Anxiety disorder, unspecified Essential (primary) hypertension Unspecified essential hypertension Hyperlipidemia, unspecified Hydrocephalus, unspecified (CMS/HCC V24, CMS/HCC V28) documented in this encounter Care Teams Salesperson [employer] Relationship Specialty Start Date End Date Jose Cedillo MD [address] [place] [address] PCP - General 02/28/11 documented as of this encounter
--- OUTSIDE RECORDS SUMMARY | 2025-08-18 05:31 | XMS_ITS | Data Portability ---
Author Organization [place] [facility] Address [address] [place] [address] Care Team Providers Care Wet End Helper Name Role Phone HERNANDEZAURORA BLAKE Primary Care [...] I have accessed patient records on the [employer]. This information was pertinent in my medical decision making today. Time On Scene with Patient: 00:33:34 alvarado Not available 04/08/2019 12:10:59 Plan of Treatment Reminders Order Date Submit Date Provider Last Modified By Organization Details Last Modified Time Details Appointments None recorded. Lab rapid flu (A+B) [address] [facility], [address] [place] [address], [phone], 9 21:25:33 Referral None recorded. Procedures None recorded. Surgeries None recorded. Imaging XR, chest, 2 view 2018 019 [facility] ([facility]), [address] [place] [address], [place], [address], 9 15:28:38 Medication Orders acetaminop hen 325 mg tablet 2018 019 [id number], [address] [place], [address], 9 21:13:37 acetaminop hen 325 mg tablet 2018 019 INTERFACE [id number], [address] [place], [address], 9 21:13:40 Tessalon Perles 100 mg capsule 2018 019 INTERFACE [facility], [address] [place], [address], 9 21:13:40 erythromyc in 5 mg/gram (0.5 %) eye ointment 2018 019 INTERFACE [id number], [address] [place], [address], 9 21:13:42 Flonase Allergy Relief 50 mcg/actuat ion nasal spray,susp ension 2018 019 INTERFACE [id number], [address] [place], [address], 9 10:05:55 Patient TargetsNo targets recorded. Patient Instructions Encounter Date Encounter Id Patient Instructions Last Modified By Organization Details Last Modified Time 04/05/2019 [id number] pinkeye: care instructions nyuzych Not available 04/05/2019 [...] (A+B) Flu A negati ve Not Available [facility] [address] [place], [address], 04/05/2019 20:53:20 04/05/20 19 04/05/2019 rapid flu (A+B) Flu B negati ve Not Available [facility] [address] [place], [address], 04/05/2019 20:53:20 04/07/20 19 XR, chest , 2 view No observ ation record ed. [facility] ([facility]) [address], [place], [address], 04/08/2019 15:37:43 Result Notes None recorded. Medical [...] Relief 50 mcg/actuati on nasal spray,suspe nsion [place] 1 spray every day by intranasa l [...] Never Smoker [facility] [address], [place], [address], [place] [facility] 04/08/2019 12:06:52 Within The [...] ICD10 Code Diagnosis IMO Codes Diagnosis Note [id number] [facility] [address] [place] [address] 04/05/2019 20:43:47 04/08/2019 19:06:39 Bacterial conjunctivitis 170854851 H10.9 Acute uppe r respiratory infection 57565474 J06.9 Fever 032776330 R50.9 Cough 60470489 R05 Health Concerns Section Related Observation LastModified by Organization Detai ls LastModified Time None Recorded Concern Status LastModified by Organization Details LastModified Time None Recorded Advance Directives Directive None Recorded Payers Insurance Date Sequence Insurance Name Policy Number Policy Macias Covered Member ID Macias Member ID Guarantor Name 04/10/2019 1 [facility] INDEMNITY PLAN (INDEMNITY) [id number] Shari Bowles [id number] Shari Bowles 04/05/2019 1 *SELF PAY* Shari Bowles [id number] Shari Bowles Notes Date Note Type Note [...] dementia, osteoarthritis [facility] [address], [place], [address], [place] [facility] 04/08/2019 12:11:03 OBGyn Episode No OBEpisode recorded.
--- OUTSIDE RECORDS SUMMARY | 2025-08-18 05:31 | XMS_ITS | Encounter Summary ---
Author Organization [facility] Address [address] [place] [address] Care Team Providers Care Cut Roll Machine Offbearer Name Role Phone Jose Cedillo MD Primary Care Provider [phone] Encounter Details Date Type Department Care Team (Late st Contact Info) Description 02/19/2025 Lab Requisition [facility] - Main Lab [address] [place] [address] Arun Flannery MD [address] [place] [address] Essential (primary) hypertension Social History [...] Basic metabolic panel (02/19/2025 8:04 AM EDT) [facility] Sodium 140 133 - 145 mmol/L LAB CHEMISTRY METHOD 02/19/2025 10:17 AM [facility] Potassium 3.9 3.5 - 5.5 mmol/L LAB CHEMISTRY METHOD 02/19/2025 10:17 AM [facility] Chloride 108 96 - 110 mmol/L LAB CHEMISTRY METHOD 02/19/2025 10:17 AM [facility] CO2 27 21 - 32 mmol/L LAB CHEMISTRY METHOD 02/19/2025 10:17 AM [facility] Anion Gap 5 3 - 11 LAB CHEMISTRY METHOD 02/19/2025 10:17 AM T [facility] Glucose 83 70 - 100 mg/dL LAB CHEMISTRY METHOD 02/19/2025 10:17 AM [facility] BUN 21 5 - 25 mg/dL LAB CHEMISTRY METHOD 02/19/2025 10:17 AM [facility] Creatinine 0.83 0.50 - 1.10 mg/dL LAB CHEMISTRY METHOD 02/19/2025 10:17 AM [facility] eGFR 68 >=60 mL/min/1. 73m2 LAB CHEMISTRY METHOD 02/19/2025 10:17 AM T [facility] Comment:Calculation based on the Chronic Kidney Disease Epidemiology Collaboration (CKD-EPI) equation refit without adjustment for race. BUN/Creatinine Ratio 25.3 LAB CHEMISTRY METHOD 02/19/2025 10:17 AM [facility] Calcium 9.5 8.5 - 10.5 mg/dL LAB CHEMISTRY METHOD 02/19/2025 10:17 AM [facility] Blood Venous blood specimen / Unknown Venipuncture / Unknown 02/19/2025 8:04 AM EDT 02/19/2025 9:20 AM EDT Arun Flannery MD LAB BLOOD ORDERABLES Final R esult [facility] [address] [place] [address], * Complete blood count (02/19/2025 8:04 AM EDT) WBC 6.8 4.8 - 10.8 K/mcL LAB HEMETOLOGY METHOD 02/19/2025 9:50 AM [facility] RBC 4.30 3.80 - 4.80 M/mcL LAB HEMETOLOGY METHOD 02/19/2025 9:50 AM T [facility] Hemoglobin 13.1 11.5 - 16.0 g/dL LAB HEMETOLOGY METHOD 02/19/2025 9:50 AM EDT [facility] Hematocrit 40.0 35.0 - 47.0 % LAB HEMETOLOGY METHOD 02/19/2025 9:50 AM EDT [facility] MCV 92.6 79.0 - 98.0 FL LAB HEMETOLOGY METHOD 02/19/2025 9:50 AM EDT [facility] MCH 30.3 27.0 - 32.0 pcg LAB HEMETOLOGY METHOD 02/19/2025 9:50 AM EDT [facility] MCHC 32.8 32.0 - 37.0 g/dL LAB HEMETOLOGY METHOD 02/19/2025 9:50 AM EDT [facility] RDW 11.9 11.0 - 15.0 % LAB HEMETOLOGY METHOD 02/19/2025 9:50 AM EDT [facility] Platelets 239 130 - 400 K/mcL LAB HEMETOLOGY METHOD 02/19/2025 9:50 AM EDT [facility] MPV 10.6 7.0 - 11.0 FL LAB HEMETOLOGY METHOD 02/19/2025 9:50 AM EDT [facility] NRBC 0.0 <1.0 % LAB HEMETOLOGY METHOD 02/19/2025 9:50 AM EDT [facility] NRBC Absolute 0.00 <0.10 K/mcL LAB HEMETOLOGY METHOD 02/19/2025 9:50 AM EDT [facility] Blood Venous blood specimen / Unknown Venipuncture / Unknown 02/19/2025 8:04 AM EDT 02/19/2025 9:20 AM EDT us Arun Flannery MD LAB BLOOD ORDERABLES Final R esult [facility] [place] [facility] LAB [address] [place] [address], documented in this encounter Visit Diagnoses Diagnosis Essential (primary) hypertension Unspecified essential hypertension documented in this encounter Care Teams Cut Roll Machine Offbearer Relationship Specialty Start Date End Date Jose Cedillo MD [address] [place] [address] PCP - General 02/28/11 documented as of this encounter
--- OUTSIDE RECORDS SUMMARY | 2025-08-18 05:31 | XMS_ITS | Encounter Summary ---
Author Organization [facility] Address [address] [place] [address] Care Team Providers Care Research Recruiter Name Role Phone Jose Cedillo MD Primary Care Provider [phone] Encounter Details Date Type Department Care Team (Late st Contact Info) Description 02/22/2025 Lab Requisition [facility] - Main Lab [address] [place] [address] Arun Flannery MD [address] [place] [address] Unspecified dementia, unspecified severity, without [...] disturbance, mood disturbance, and anxiety (CMS/HCC V24, CMS/[facility] V28) Essential (primary) hypertension Unspecified essential hypertension Hyperlipidemia, unspecified documented in this encounter Care Teams Research Recruiter Relationship Specialty Start Date End Date Jose Cedillo MD [address] [place] [address] PCP - General 02/28/11 documented as of this encounter
--- OUTSIDE RECORDS SUMMARY | 2025-08-18 05:31 | XMS_ITS | Encounter Summary ---
Author Organization [facility] Address [address] [place] [address] Care Team Providers Care Electrical Assemblies Supervisor Name Role Phone Jose Cedillo MD Primary Care Provider [phone] Encounter Details Date Type Department Care Team (Late st Contact Info) Description 02/14/2025 Lab Requisition [facility] - Main Lab [address] [place] [address] Arun Flannery MD [address] [place] [address] Unspecified dementia, unspecified severity, without [...] disturbance, mood disturbance, and anxiety (CMS/HCC V24, CMS/[facility] V28) Essential (primary) hypertension Unspecified essential hypertension Hyperlipidemia, unspecified documented in this encounter Care Teams Electrical Assemblies Supervisor Relationship Specialty Start Date End Date Jose Cedillo MD [address] [place] [phone] PCP - General 02/28/11 documented as of this encounter
[2025-08-18 05:59] LABS: Hematocrit 35.1 % (37.0-47.0); Hemoglobin 11.7 g/dl (12.0-16.0); Imm Gran Abs Auto 0.03 X10*3/uL (0.00-0.03); Imm Gran Pct Auto 0.5 % (0.0-0.4); Lymphocytes Absolute Auto 1.5 X10*3/uL (1.2-4.9); Mean Corpuscular HGB Conc 33.3 g/dl (31.0-35.0); Mean Corpuscular Hemoglobin 31.2 pg (27.0-33.0); Mean Corpuscular Volume 93.6 fL (80.0-98.0); NRBC Abs Auto 0.000 X10*3/uL (0.0-0.012); NRBC Pct Auto 0.0 /100WBC (0.0-0.2); Platelet Count 147 X10*3/uL (160-400); Red Blood Count 3.75 X10*6/uL (4.20-5.50); White Blood Count 6.6 X10*3/uL (4.8-10.8)
[2025-08-18 06:01] LABS: Anion Gap 11 (12-20); Blood Urea Nitrogen 15 mg/dL (9-16); Calcium 9.3 mg/dL (8.4-10.2); Carbon Dioxide 25 mmol/L (22-29); Chloride 110 mmol/L (96-108); Estimated Glomerular Filt Rate > 60; Potassium 3.6 mmol/L (3.3-5.1); Sodium 142 mmol/L (135-145)
== END 2025-08-18 05:28 | disposition home or self-care (01) ==
LOC: HO.MMNH1L 05:27
PROVIDERS: Visit Provider Physician Assistant Medical
DX: Z13.89 Encounter for screening for other disorder (principal)
CPT/HCPCS: 36415; 80048; 85025

== ENCOUNTER 2025-08-25 07:04 | Outpatient (REF) | payer OTHER, SELFPAY ==
[2025-08-25 05:52] LABS: MANUAL DIFF FLAG NO
[2025-08-25 06:11] LABS: Hematocrit 37.2 % (37.0-47.0); Hemoglobin 12.5 g/dl (12.0-16.0); Imm Gran Abs Auto 0.04 X10*3/uL (0.00-0.03); Imm Gran Pct Auto 0.4 % (0.0-0.4); Lymphocytes Absolute Auto 1.6 X10*3/uL (1.2-4.9); Mean Corpuscular HGB Conc 33.6 g/dl (31.0-35.0); Mean Corpuscular Hemoglobin 30.9 pg (27.0-33.0); Mean Corpuscular Volume 91.9 fL (80.0-98.0); NRBC Abs Auto 0.000 X10*3/uL (0.0-0.012); NRBC Pct Auto 0.0 /100WBC (0.0-0.2); Platelet Count 223 X10*3/uL (160-400); Red Blood Count 4.05 X10*6/uL (4.20-5.50); White Blood Count 9.9 X10*3/uL (4.8-10.8)
[2025-08-25 06:22] LABS: Anion Gap 12 (12-20); Blood Urea Nitrogen 16 mg/dL (9-16); Calcium 9.5 mg/dL (8.4-10.2); Carbon Dioxide 26 mmol/L (22-29); Chloride 108 mmol/L (96-108); Estimated Glomerular Filt Rate > 60; Potassium 3.8 mmol/L (3.3-5.1); Sodium 142 mmol/L (135-145)
--- OUTSIDE RECORDS SUMMARY | 2025-08-25 07:28 | XMS_ITS | Data Portability ---
Author Organization [place] [facility] Address [address] [place] [address] Care Team Providers Care Assistant Prosecuting Attorney Name Role Phone HERNANDEZAURORA BLAKE Primary Care [...] I have accessed patient records on the [employer]. This information was pertinent in my medical decision making today. Time On Scene with Patient: 00:33:34 alvarado Not available 04/08/2019 12:10:59 Plan of Treatment Reminders Order Date Submit Date Provider Last Modified By Organization Details Last Modified Time Details Appointments None recorded. Lab rapid flu (A+B) 2018 019 alvarado [facility], [address] [place] [address], [address], 9 21:25:33 Referral None recorded. Procedures None recorded. Surgeries None recorded. Imaging XR, chest, 2 view 2018 019 [facility] ([facility]), [address] [place] [address], [place], [address], 9 15:28:38 Medication Orders acetaminop hen 325 mg tablet 2018 019 [facility], [address] [place], [address], 9 21:13:37 acetaminop hen 325 mg tablet 2018 019 INTERFACE [facility], [address] [place], [address], 9 21:13:40 Tessalon Perles 100 mg capsule 2018 019 INTERFACE [facility], [address] [place], [address], 9 21:13:40 erythromyc in 5 mg/gram (0.5 %) eye ointment 2018 019 INTERFACE [facility], [address] [place], [address], 9 21:13:42 Flonase Allergy Relief 50 mcg/actuat ion nasal spray,susp ension 2018 019 INTERFACE [facility], [address] [place], [address], 9 10:05:55 Patient TargetsNo targets recorded. Patient Instructions Encounter Date Encounter Id Patient Instructions Last Modified By Organization Details Last Modified Time 04/05/2019 [id number] pinkeye: care instructions nyuzych Not available 04/05/2019 [...] (A+B) Flu A negati ve Not Available [facility] [address] [place], [address], 04/05/2019 20:53:20 04/05/20 19 04/05/2019 rapid flu (A+B) Flu B negati ve Not Available [facility] [address] [place], [address], 04/05/2019 20:53:20 04/07/20 19 XR, chest , 2 view No observ ation record ed. [facility] [address], [place], [address], 04/08/2019 15:37:43 Result Notes None recorded. Medical [...] Relief 50 mcg/actuati on nasal spray,suspe nsion [place] 1 spray every day by intranasa l [...] Never Smoker [facility] [address], [place], [address], [place] [facility] 04/08/2019 12:06:52 Within The [...] Coronary Artery Disease N High Cholesterol N Cancer N Pulmonary Embolism N Stroke N Hypertension Y Asthma N COPD N Depression N Kidney Disease N Gynecological HistoryNo gynecological history recorded. Obstetrics History GPAL:G 0 P 0 0 0 0 Past Encounters Encounter ID Performer Location Encounter Start Date Encounter Closed Date Diagnosis/Indication Diagnosis SNOMED-CT Code Diagnosis ICD10 Code Diagnosis IMO Codes Diagnosis Note [id number] [facility] [address] [place] [address] 04/05/2019 20:43:47 04/08/2019 19:06:39 Bacterial conjunctivitis 696531345 H10.9 Acute uppe r respiratory infection 64522655 J06.9 Fever 284545367 R50.9 Cough 85910550 R05 Health Concerns Section Related Observation LastModified by Organization Detai ls LastModified Time None Recorded Concern Status LastModified by Organization Details LastModified Time None Recorded Advance Directives Directive None Recorded Payers Insurance Date Sequence Insurance Name Policy Number Policy Macias Covered Member ID Macias Member ID Guarantor Name 04/10/2019 1 [facility] IN[facility] PLAN (INDEMNITY) [id number] Shari Bowles [id number] Shari Bowles 04/05/2019 1 *SELF PAY* Shari Bowles [id number] Shari Bowles Notes Date Note Type Note [...] dementia, osteoarthritis [facility] [address], [place], [address], [place] [facility] 04/08/2019 12:11:03 OBGyn Episode No OBEpisode recorded.
--- OUTSIDE RECORDS SUMMARY | 2025-08-25 07:28 | XMS_ITS | Clinical Summary ---
Author Organization [facility] Address [address] [place] [address] Phone Care Team Providers Care Lock Expert Name Role Phone Jose Cedillo MD Primary Care Provider [phone] Allergies Active Allergy Reactions Criticality Noted Date [...] Department Care Team Description 07/15/2025 Results Follow-Up [facility] Emergency [address] [place] [address] Mary Villar RN 07/14/2025 5:00 PM EDT - 07/15/2025 12:03 AM EDT Emergency [facility] Emergency [address] [place] [address] Chloe Abdi MD Wyman, Tim, MD Fall, initial encounter (Primary Dx) Discharge Disposition: Home or Self Care from Last 3 Months Medical History Medical History Date Comments Anxiety Dementia (CMS/HCC V24, CMS/HCC V28) Social History Tobacco [...] Impression: No pelvic fracture identified. Telerad PA ([id number]) -------- FINAL REPORT -------- Dictated By: Anna Dodd Dictated Date: 07/15/2025 09:23 ET Assigned Physician: Anna Dodd Reviewed and Electronically Signed By: Anna Dodd Signed Date: 07/15/2025 09:25 ET Workstation ID: [id number] Transcribed By: Self Edit Transcribed Date: 07/15/2025 [...] well-maintained. No femoral neck fracture is seen. DIRECTOR NETWORK DEVELOPMENT shunt tubing is partially imaged. A large [...] is well-maintained. No femoral neckfracture is seen. [employer]ELOP[employer] shunt tubing is partially imaged. A large amount of stool is seenwithin the colon and rectum. IMPRESSION: Impression: No pelvic fracture identified. Telerad PA ([id number]) -------- FINAL REPORT -------- Dictated By: Anna Dodd Dictated Date: 07/15/2025 09:23 ET Assigned Physician: Anna Dodd Reviewed and Electronically Signed By: Anna Dodd Signed Date: 07/15/2025 09:25 ET Workstation ID: [id number] Transcribed By: Self Edit Transcribed Date: 07/15/2025 09:23 ET us Chloe Abdi MD IMG XR PROCEDURES Final Result * XR Chest 1 View (07/14/2025 9:22 PM EDT) Anatomical Region Laterality Modality Body Radiographic Susie ging 07/15/2025 9:27 AM EDT Impressions 07/15/2025 9:30 AM EDT Impression: 1. Lungs grossly clear. 2. Thoracic vertebral compression fractures, including a potentially new fracture since 09/04/24. Telerad GIRISH ([id number]) -------- FINAL REPORT -------- Dictated By: Anna Dodd Dictated Date: 07/15/2025 09:27 ET Assigned Physician: Anna Dodd Reviewed and Electronically Signed By: Anna Dodd Signed Date: 07/15/2025 09:30 ET Workstation ID: [id number] Transcribed By: Self Edit Transcribed Date: 07/15/2025 09:27 ET Narrative 07/15/2025 9:30 AM EDT History: Fall. Chest pain. Comparison: 09/04/24 Findings: AP upright chest. This is a suboptimal inspiration. The cardiac silhouette appears mildly enlarged and the thoracic aorta is tortuous. The pulmonary vascularity is within normal limits. The lungs are grossly clear. [employer]ELOP[employer] shunt tubing projects over the right hemithorax, [...] normal limits. The lungs are grossly clear. [employer]ELOP[employer] shunt tubing projects over the right hemithorax, unchanged. Twoadjacent vertebral fractures are seen in the mid thoracic spine, only oneof which is visualized on the previous exam. IMPRESSION: Impression: 1. Lungs grossly clear. 2. Thoracic vertebral compression fractures, including a potentially newfracture since 09/04/24. Telerad GIRISH ([id number]) -------- FINAL REPORT -------- Dictated By: Anna Dodd Dictated Date: 07/15/2025 09:27 ET Assigned Physician: Anan Dodd Reviewed and Electronically Signed By: Anna Dodd Signed Date: 07/15/2025 09:30 ET Workstation ID: [id number] Transcribed By: Self Edit Transcribed Date: 07/15/2025 [...] tissues: Normal Additional abnormality: Right frontal approach [employer]ELOP[employer] shunt. Atherosclerosis calcification of the distal carotid [...] tissues: Normal Additional abnormality: Right frontal approach [employer]ELOP[employer] shunt. Atherosclerosis calcification of the distal carotid artery and vertebral artery. Mucosal thickening of the bilateral maxillary sinus. IMPRESSION: Age-related atrophy with chronic microvascular leukomalacia. No hemorrhage, mass effect, or acute findings identified. This document has been electronically signed by: Arian Gaitan MD on 07/14/2025 19:35:00 Chloe Abdi MD [facility] [place]ED[place] Final Result * (ABNORMAL) Urinalysis with reflex microscopic and culture (07/14/2025 6:47 PM EDT) Specific [place] Urine 1.017 1.003 - 1.030 LAB URINALYSIS - AUTOMATED METHOD 07/14/2025 8:07 PM [facility] pH, Urine 7.0 5.0 - 8.0 pH LAB URINALYSIS - AUTOMATED METHOD 07/14/2025 8:07 PM [facility] Leukocytes, Urine Small(A) Negative LAB URINALYSIS - AUTOMATED METHOD 07/14/2025 8:07 PM [facility] Nitrite, Urine Negative Negative LAB URINALYSIS - AUTOMATED METHOD 07/14/2025 8:07 PM [facility] Protein, Urine Negative <=Trace mg/dL LAB URINALYSIS - AUTOMATED METHOD 07/14/2025 8:07 PM [facility] Glucose, Urine Negative Negative mg/dL LAB URINALYSIS - AUTOMATED METHOD 07/14/2025 8:07 PM [facility] Ketones, Urine Negative Negative mg/dL LAB URINALYSIS - AUTOMATED METHOD 07/14/2025 8:07 PM [facility] Urobilinogen, Urine 1.0 0.2 - 1.0 mg/dL LAB URINALYSIS - AUTOMATED METHOD 07/14/2025 8:07 PM [facility] Bilirubin, Urine Negative Negative LAB URINALYSIS - AUTOMATED METHOD 07/14/2025 8:07 PM [facility] Blood, Urine Negative Negative LAB URINALYSIS - AUTOMATED METHOD 07/14/2025 8:07 PM [facility] RBC, Urine 2.0 0 - 4 /HPF LAB URINALYSIS - AUTOMATED METHOD 07/14/2025 8:07 PM EDT [facility] WBC, Urine 3.5 0 - 4 /HPF LAB URINALYSIS - AUTOMATED METHOD 07/14/2025 8:07 PM EDT [facility] Squamous Epithelial, Urine 28 0 - 60 /LPF LAB URINALYSIS - AUTOMATED METHOD 07/14/2025 8:07 PM EDT [facility] Bacteria, Urine Negative Negative /HPF LAB URINALYSIS - AUTOMATED METHOD 07/14/2025 8:07 PM EDT [facility] Hyaline Casts, Urine 0.4 0 - 3 /LPF LAB URINALYSIS - AUTOMATED METHOD 07/14/2025 8:07 PM EDT [facility] Urine Urine specimen obtained by clean catch procedure / Unknown Non-blood Collection / Unknown 07/14/2025 6:47 PM EDT 07/14/2025 6:57 PM EDT us Chloe Abdi MD LAB URINE ORDERABLES Final Res ult [facility] [address] [place] [address], [place] [phone] * Connelly urine culture tube (07/14/2025 6:47 PM EDT) Extra Tube Hold for add-ons. 07/14/2025 8:01 PM EDT [facility] Comment:Auto resulted. Urine Urine specimen obtained by clean catch procedure / Unknown Non-blood Collection / Unknown 07/14/2025 6:47 PM EDT 07/14/2025 6:57 PM EDT us Chloe Abdi MD LAB URINE ORDERABLES Final Res ult Performing Organization Address City/[facility]/ZIP Co de Phone Number [facility] [address] [place] [address], [place] [phone] * Culture urine (07/14/2025 6:47 PM EDT) Pathologist [facility] Culture, Urine 10,000-49,000 CFU/mL Mixed bacterial morphotypes present suggestive of possible contamination during collection. Suggest appropriate recollection if clinically indicated. 07/15/2025 1:21 PM EDT [facility] Urine Urine specimen obtained by clean catch procedure / Unknown Non-blood Collection / Unknown 07/14/2025 6:47 PM EDT 07/14/2025 8:07 PM EDT us Chloe Abdi MD LAB MICROBIOLOGY - GENERAL ORD ERABLES Final Result [facility] [address] [place] [address], [place] [phone] * Basic metabolic panel (02/19/2025 8:04 AM EDT) Pathologist [facility] Sodium 140 133 - 145 mmol/L LAB CHEMISTRY METHOD 02/19/2025 10:17 AM [facility] Potassium 3.9 3.5 - 5.5 mmol/L LAB CHEMISTRY METHOD 02/19/2025 10:17 AM [facility] Chloride 108 96 - 110 mmol/L LAB CHEMISTRY METHOD 02/19/2025 10:17 AM [facility] CO2 27 21 - 32 mmol/L LAB CHEMISTRY METHOD 02/19/2025 10:17 AM [facility] Anion Gap 5 3 - 11 LAB CHEMISTRY METHOD 02/19/2025 10:17 AM [facility] Glucose 83 70 - 100 mg/dL LAB CHEMISTRY METHOD 02/19/2025 10:17 AM [facility] BUN 21 5 - 25 mg/dL LAB CHEMISTRY METHOD 02/19/2025 10:17 AM [facility] Creatinine 0.83 0.50 - 1.10 mg/dL LAB CHEMISTRY METHOD 02/19/2025 10:17 AM EDT [facility] eGFR 68 >=60 mL/min/1. 73m2 LAB CHEMISTRY METHOD 02/19/2025 10:17 AM EDT [facility] Comment:Calculation based on the Chronic Kidney Disease Epidemiology Collaboration (CKD-EPI) equation refit without adjustment for race. BUN/Creatinine Ratio 25.3 LAB CHEMISTRY METHOD 02/19/2025 10:17 AM EDT [facility] Calcium 9.5 8.5 - 10.5 mg/dL LAB CHEMISTRY METHOD 02/19/2025 10:17 AM EDT [facility] Blood Venous blood specimen / Unknown Venipuncture / Unknown 02/19/2025 8:04 AM EDT 02/19/2025 9:20 AM EDT us Arun Flannery MD LAB BLOOD ORDERABLES Final R esult [facility] [address] [place] [address], from Last 3 Months or Most Recently Relevant to Health Maintenance Insurance [place] [address] Advance Directives Documents on File Type Date Recorded Patient Engine Testing Supervisor Expl anation Advance Directives and Living Will [...] Branch Other Health Care Agent Care Teams Lock Expert Relationship Specialty Start Date End Date Jose Cedillo MD [address] [place] [phone] PCP - General 02/28/11
--- OUTSIDE RECORDS SUMMARY | 2025-08-25 07:28 | XMS_ITS | Encounter Summary ---
Author Organization [facility] Address [address] [place] [address] Care Team Providers Care Energy Director Name Role Phone Jose Cedillo MD Primary Care Provider [phone] Encounter Details Date Type Department Care Team (Late st Contact Info) Description 07/15/2025 Results Follow-Up [facility] Emergency [address] [place] [address] Mary Villar RN Social History [...] of Assessment Author No 02/05/2025 8:48 PM Pricsa Del Real RN * Are you blind [...] Spoke with facility and lawyer augustus at [phone]. He stated she is ok and will call to follow up with pcp documented in this encounter Plan of Treatment Not on file documented as of this encounter Visit Diagnoses Not on filedocumented in this encounter Care Teams Energy Director Relationship Specialty Start Date End Date Jose Cedillo MD [facility] [place] [phone] PCP - General 02/28/11 documented as of this encounter
--- OUTSIDE RECORDS SUMMARY | 2025-08-25 07:29 | XMS_ITS | Encounter Summary ---
Author Organization [facility] Address [address] [place] [address] Care Team Providers Care Outdoor Power Equipment Mechanic Name Role Phone Jose Cedillo MD Primary Care Provider [phone] Encounter Details Date Type Department Care Team (Late st Contact Info) Description 02/19/2025 Lab Requisition [facility] - Main Lab [address] [place] [address] Arun Flannery MD [address] [place] [address] Essential (primary) hypertension Social History [...] Basic metabolic panel (02/19/2025 8:04 AM EDT) [facility] Sodium 140 133 - 145 mmol/L LAB CHEMISTRY METHOD 02/19/2025 10:[address] [facility] Potassium 3.9 3.5 - 5.5 mmol/L LAB CHEMISTRY METHOD 02/19/2025 10:[address] [facility] Chloride 108 96 - 110 mmol/L LAB CHEMISTRY METHOD 02/19/2025 10:[address] [facility] CO2 27 21 - 32 mmol/L LAB CHEMISTRY METHOD 02/19/2025 10:[address] [facility] Anion Gap 5 3 - 11 LAB CHEMISTRY METHOD 02/19/2025 10:17 AM T [facility] Glucose 83 70 - 100 mg/dL LAB CHEMISTRY METHOD 02/19/2025 10:[address] [facility] BUN 21 5 - 25 mg/dL LAB CHEMISTRY METHOD 02/19/2025 10:[address] [facility] Creatinine 0.83 0.50 - 1.10 mg/dL LAB CHEMISTRY METHOD 02/19/2025 10:[address] [facility] eGFR 68 >=60 mL/min/1. 73m2 LAB CHEMISTRY METHOD 02/19/2025 10:17 AM T [facility] Comment:Calculation based on the Chronic Kidney Disease Epidemiology Collaboration (CKD-EPI) equation refit without adjustment for race. BUN/Creatinine Ratio 25.3 LAB CHEMISTRY METHOD 02/19/2025 10:[address] [facility] Calcium 9.5 8.5 - 10.5 mg/dL LAB CHEMISTRY METHOD 02/19/2025 10:[address] [facility] Blood Venous blood specimen / Unknown Venipuncture / Unknown 02/19/2025 8:04 AM EDT 02/19/2025 9:20 AM EDT Arun Flannery MD LAB BLOOD ORDERABLES Final R esult [facility] [address] [place] [address], * Complete blood count (02/19/2025 8:04 AM EDT) WBC 6.8 4.8 - 10.8 K/mcL LAB HEMETOLOGY METHOD 02/19/2025 9:[address] [facility] RBC 4.30 3.80 - 4.80 M/mcL LAB HEMETOLOGY METHOD 02/19/2025 9:50 AM T [facility] Hemoglobin 13.1 11.5 - 16.0 g/dL LAB HEMETOLOGY METHOD 02/19/2025 9:50 AM EDT [facility] Hematocrit 40.0 35.0 - 47.0 % LAB HEMETOLOGY METHOD 02/19/2025 9:50 AM EDT [facility] MCV 92.6 79.0 - 98.0 FL LAB HEMETOLOGY METHOD 02/19/2025 9:50 AM EDT [facility] MCH 30.3 27.0 - 32.0 pcg LAB HEMETOLOGY METHOD 02/19/2025 9:50 AM EDT [facility] MCHC 32.8 32.0 - 37.0 g/dL LAB HEMETOLOGY METHOD 02/19/2025 9:50 AM EDT [facility] RDW 11.9 11.0 - 15.0 % LAB HEMETOLOGY METHOD 02/19/2025 9:50 AM EDT [facility] Platelets 239 130 - 400 K/mcL LAB HEMETOLOGY METHOD 02/19/2025 9:50 AM EDT [facility] MPV 10.6 7.0 - 11.0 FL LAB HEMETOLOGY METHOD 02/19/2025 9:50 AM EDT [facility] NRBC 0.0 <1.0 % LAB HEMETOLOGY METHOD 02/19/2025 9:50 AM EDT [facility] NRBC Absolute 0.00 <0.10 K/mcL LAB HEMETOLOGY METHOD 02/19/2025 9:50 AM EDT [facility] Blood Venous blood specimen / Unknown Venipuncture / Unknown 02/19/2025 8:04 AM EDT 02/19/2025 9:20 AM EDT us Arun Flannery MD LAB BLOOD ORDERABLES Final R esult [facility] [place] [facility] [address] [place] [address], documented in this encounter Visit Diagnoses Diagnosis Essential (primary) hypertension Unspecified essential hypertension documented in this encounter Care Teams Outdoor Power Equipment Mechanic Relationship Specialty Start Date End Date Jose Cedillo MD [address] [place] [phone] PCP - General 02/28/11 documented as of this encounter
--- OUTSIDE RECORDS SUMMARY | 2025-08-25 07:29 | XMS_ITS | Encounter Summary ---
Author Organization [facility] Address [address] [place] [address] Care Team Providers Care Customer Service Professional Name Role Phone Jose Cedillo MD Primary Care Provider [phone] Encounter Details Date Type Department Care Team (Late st Contact Info) Description 02/11/2025 Lab Requisition [facility] - Main Lab [address] [place] [address] Arun Flannery MD [address] [place], [place] [phone] Unspecified dementia, unspecified severity, without behavioral disturbance, [...] Author No 02/05/2025 8:48 PM Prisca Del Rael RN * Are you blind or do [...] mmol/L LAB CHEMISTRY METHOD 02/11/2025 10:43 AM [facility] Potassium 4.2 3.5 - 5.5 mmol/L LAB CHEMISTRY METHOD 02/11/2025 10:43 AM [facility] Chloride 104 96 - 110 mmol/L LAB CHEMISTRY METHOD 02/11/2025 10:43 AM [facility] CO2 30 21 - 32 mmol/L LAB CHEMISTRY METHOD 02/11/2025 10:43 AM [facility] Anion Gap 5 3 - 11 LAB CHEMISTRY METHOD 02/11/2025 10:43 AM [facility] Glucose 79 70 - 100 mg/dL LAB CHEMISTRY METHOD 02/11/2025 10:43 AM [facility] BUN 20 5 - 25 mg/dL LAB CHEMISTRY METHOD 02/11/2025 10:43 AM [facility] Creatinine 0.81 0.50 - 1.10 mg/dL LAB CHEMISTRY METHOD 02/11/2025 10:43 AM [facility] eGFR 70 >=60 mL/min/1. 73m2 LAB CHEMISTRY METHOD 02/11/2025 10:43 AM [facility] Comment:Calculation based on the Chronic Kidney Disease Epidemiology Collaboration (CKD-EPI) equation refit without adjustment for race. BUN/Creatinine Ratio 24.7 LAB CHEMISTRY METHOD 02/11/2025 10:43 AM [facility] Calcium 10.4 8.5 - 10.5 mg/dL LAB CHEMISTRY METHOD 02/11/2025 10:43 AM [facility] Blood Venous blood specimen / Unknown Venipuncture / Unknown 02/11/2025 7:47 AM EDT 02/11/2025 9:35 AM EDT us Arun Flannery MD LAB BLOOD ORDERABLES Final R esult [facility] [address] [place] [address], * Complete blood count (02/11/2025 7:47 AM EDT) WBC 7.2 4.8 - 10.8 K/mcL LAB HEMETOLOGY METHOD 02/11/2025 10:[address] [facility] RBC 4.40 3.80 - 4.80 M/mcL LAB HEMETOLOGY METHOD 02/11/2025 10:[address] [facility] Hemoglobin 13.3 11.5 - 16.0 g/dL LAB HEMETOLOGY METHOD 02/11/2025 10:[address] [facility] Hematocrit 40.7 35.0 - 47.0 % LAB HEMETOLOGY METHOD 02/11/2025 10:[address] [facility] MCV 92.3 79.0 - 98.0 FL LAB HEMETOLOGY METHOD 02/11/2025 10:[address] [facility] MCH 30.2 27.0 - 32.0 pcg LAB HEMETOLOGY METHOD 02/11/2025 10:[address] [facility] MCHC 32.7 32.0 - 37.0 g/dL LAB HEMETOLOGY METHOD 02/11/2025 10:[address] [facility] RDW 11.8 11.0 - 15.0 % LAB HEMETOLOGY METHOD 02/11/2025 10:[address] [facility] Platelets 233 130 - 400 K/mcL LAB HEMETOLOGY METHOD 02/11/2025 10:[address] [facility] MPV 11.0 7.0 - 11.0 FL LAB HEMETOLOGY METHOD 02/11/2025 10:[address] [facility] NRBC 0.0 <1.0 % LAB HEMETOLOGY METHOD 02/11/2025 10:[address] [facility] NRBC Absolute 0.00 <0.10 K/mcL LAB HEMETOLOGY METHOD 02/11/2025 10:[address] [facility] Blood Venous blood specimen / Unknown Venipuncture / Unknown 02/11/2025 7:47 AM EDT 02/11/2025 9:35 AM EDT us Arun Flannery MD LAB BLOOD ORDERABLES Final R esult [facility] [address] [place] [address], documented in this encounter Visit Diagnoses Diagnosis Unspecified dementia, unspecified severity, without behavioral disturbance, psychotic disturbance, mood disturbance, and anxiety (CMS/HCC V24, CMS/HCC V28) Anxiety disorder, unspecified Essential (primary) hypertension Unspecified essential hypertension Hyperlipidemia, unspecified Hydrocephalus, unspecified (CMS/HCC V24, CMS/HCC V28) documented in this encounter Care Teams Customer Service Professional Relationship Specialty Start Date End Date Jose Cedillo MD [address] [place] [phone] PCP - General 02/28/11 documented as of this encounter
--- OUTSIDE RECORDS SUMMARY | 2025-08-25 07:29 | XMS_ITS | Encounter Summary ---
Author Organization [facility] Address [address] [place] [address] Care Team Providers Care Workers' Compensation Mediator Name Role Phone Jose Cedillo MD Primary Care Provider [phone] Encounter Details Date Type Department Care Team (Late st Contact Info) Description 02/22/2025 Lab Requisition [facility] - Main Lab [address] [place] [address] Arun Flannery MD [address] [place] [address] Unspecified dementia, unspecified severity, without [...] disturbance, mood disturbance, and anxiety (CMS/HCC V24, CMS/[facility] V28) Essential (primary) hypertension Unspecified essential hypertension Hyperlipidemia, unspecified documented in this encounter Care Teams Workers' Compensation Mediator Relationship Specialty Start Date End Date Jose Cedillo MD [address] [place] [phone] PCP - General 02/28/11 documented as of this encounter
--- OUTSIDE RECORDS SUMMARY | 2025-08-25 07:29 | XMS_ITS | Encounter Summary ---
Author Organization [facility] Address [address] [place] [address] Care Team Providers Care Toll Line Mechanic Name Role Phone Jose Cedillo MD Primary Care Provider [phone] Encounter Details Date Type Department Care Team (Late st Contact Info) Description 02/14/2025 Lab Requisition [facility] - Main Lab [address] [place] [address] Arun Flannery MD [address] [place] [address] Unspecified dementia, unspecified severity, without [...] disturbance, mood disturbance, and anxiety (CMS/HCC V24, CMS/[facility] V28) Essential (primary) hypertension Unspecified essential hypertension Hyperlipidemia, unspecified documented in this encounter Care Teams Toll Line Mechanic Relationship Specialty Start Date End Date Jose Cedillo MD [address] [place] [phone] PCP - General 02/28/11 documented as of this encounter
--- OUTSIDE RECORDS SUMMARY | 2025-08-25 07:29 | XMS_ITS | Encounter Summary ---
Author Organization [facility] Address [address] [place] [address] Care Team Providers Care Page Makeup System Operator Name Role Phone Jose Cedillo MD Primary Care Provider [phone] Encounter Details Date Type Department Care Team (Late st Contact Info) Description 03/11/2025 Lab Requisition [facility] - Main Lab [address] [place] [address] Arun Flannery MD [address] [place], [place] [phone] Hyperlipidemia, unspecified Social History Tobacco Use Types [...] unspecified documented in this encounter Care Teams Page Makeup System Operator Relationship Specialty Start Date End Date Jose Cedillo MD [address] [place] [phone] PCP - General 02/28/11 documented as of this encounter
== END 2025-08-25 07:05 | disposition home or self-care (01) ==
LOC: HO.MMNH3L 07:04
PROVIDERS: Visit Provider Physician Assistant Medical
DX: E46 Unspecified protein-calorie malnutrition (principal); N17.9 Acute kidney failure, unspecified; G91.9 Hydrocephalus, unspecified
CPT/HCPCS: 36415; 80048; 85025

== ENCOUNTER 2025-09-15 09:07 | Outpatient (REF) | payer OTHER, SELFPAY ==
[2025-09-15 07:19] LABS: MANUAL DIFF FLAG NO
[2025-09-15 07:24] LABS: Hematocrit 39.1 % (37.0-47.0); Hemoglobin 12.7 g/dl (12.0-16.0); Imm Gran Abs Auto 0.04 X10*3/uL (0.00-0.03); Imm Gran Pct Auto 0.4 % (0.0-0.4); Lymphocytes Absolute Auto 1.6 X10*3/uL (1.2-4.9); Mean Corpuscular HGB Conc 32.5 g/dl (31.0-35.0); Mean Corpuscular Hemoglobin 30.4 pg (27.0-33.0); Mean Corpuscular Volume 93.5 fL (80.0-98.0); NRBC Abs Auto 0.000 X10*3/uL (0.0-0.012); NRBC Pct Auto 0.0 /100WBC (0.0-0.2); Platelet Count 261 X10*3/uL (160-400); Red Blood Count 4.18 X10*6/uL (4.20-5.50); White Blood Count 9.7 X10*3/uL (4.8-10.8)
[2025-09-15 07:40] LABS: Anion Gap 14 (12-20); Blood Urea Nitrogen 29 mg/dL (9-16); Calcium 10.0 mg/dL (8.4-10.2); Carbon Dioxide 25 mmol/L (22-29); Chloride 111 mmol/L (96-108); Estimated Glomerular Filt Rate > 60; Potassium 4.0 mmol/L (3.3-5.1); Sodium 146 mmol/L (135-145)
== END 2025-09-15 09:08 | disposition home or self-care (01) ==
LOC: HO.MMNH3L 09:07
PROVIDERS: Visit Provider Physician Assistant Medical
DX: N17.9 Acute kidney failure, unspecified (principal); E46 Unspecified protein-calorie malnutrition; E78.5 Hyperlipidemia, unspecified
CPT/HCPCS: 36415; 80048; 85025

== ENCOUNTER 2025-09-19 07:01 | Outpatient (REF) | payer OTHER, SELFPAY ==
[2025-09-19 07:05] LABS: MANUAL DIFF FLAG NO
--- OUTSIDE RECORDS SUMMARY | 2025-09-19 07:07 | XMS_ITS | Encounter Summary ---
Author Organization [facility] Address [address] [place] [address] Care Team Providers Care Conservation Science Officer Name Role Phone Jose Cedillo MD Primary Care Provider [phone] Encounter Details Date Type Department Care Team (Late st Contact Info) Description 02/22/2025 Lab Requisition [facility] - Main Lab [address] [place] [address] Arun Flannery MD [address] [place] [address] Unspecified dementia, unspecified severity, without [...] mood disturbance, and anxiety (CMS/HCC V24, CMS/[facility] V28) Essential (primary) hypertension Unspecified essential hypertension Hyperlipidemia, unspecified documented in this encounter Care Teams Conservation Science Officer Relationship Specialty Start Date End Date Jose Cedillo MD [address] [place] [phone] PCP - General 02/28/11 documented as of this encounter
--- OUTSIDE RECORDS SUMMARY | 2025-09-19 07:07 | XMS_ITS | Data Portability ---
Author Organization [place] [facility] Address [address] [place] [address] Care Team Providers Care Fisheries Technical Officer Name Role Phone HERNANDEZ AURORA Primary Care Provider [phone] Assessment Encounter Date Assessment Date Assessment LastModified [...] I have accessed patient records on the [employer]. This information was pertinent in my medical decision making today. Time On Scene with Patient: 00:33:34 alvarado Not available 04/08/2019 12:10:59 Plan of Treatment Reminders Order Date Submit Date Provider Last Modified By Organization Details Last Modified Time Details Appointments None recorded. Lab rapid flu (A+B) 2018 019 alvarado [facility], [address] [place] [address], [phone], 9 21:25:33 Referral None recorded. Procedures None recorded. Surgeries None recorded. Imaging XR, chest, 2 view 2018 019 [facility] ([facility]), [address] [place] [address], [place], [address], 9 15:28:38 Medication Orders acetaminop hen 325 mg tablet 2018 019 [id number], [address] [place], [address], 9 21:13:37 acetaminop hen 325 mg tablet 2018 019 INTERFACE [id number], [address] [place], [address], 9 21:13:40 Tessalon Perles 100 mg capsule 2018 019 INTERFACE [id number], [address] [place], [address], 9 21:13:40 erythromyc in 5 mg/gram (0.5 %) eye ointment 2018 019 INTERFACE [id number], [address] [place], [address], 9 21:13:42 Flonase Allergy Relief 50 mcg/actuat ion nasal spray,susp ension 2018 019 INTERFACE [id number], [address] [place], [address], 9 10:05:55 Patient TargetsNo targets recorded. Patient Instructions Encounter Date Encounter Id Patient Instructions Last Modified By Organization Details Last Modified Time 04/05/2019 [id number] pinkeye: care instructions nyuzych Not available 04/05/2019 [...] [facility] [address] [place], [address], 04/05/2019 20:53:20 04/05/20 19 04/05/2019 rapid flu (A+B) Flu B negati ve Not Available [facility] [address] [place], [address], 04/05/2019 20:53:20 04/07/20 19 XR, chest , 2 view No observ ation record ed. [facility] ([facility]) [address], [place], [address], 04/08/2019 15:37:43 Result Notes None recorded. Medical [...] Relief 50 mcg/actuati on nasal spray,suspe nsion Pal[place]ios 1 spray every day by intranasa l route. 2018 active Not Available Not Available Not Avai lable Vitals Date Recorded Body temperature Oxygen saturation Respiratory rate Heart rate Systolic And Diastolic Provider Name and Address Organization Details Last Updated DateTime 9 99.4 [degF] 97 % 22 /min 90 /min 182/94 mm[Hg] Not Available [facility] 9 20:50:19 Social History Question Answer Notes LastModified by Organizat ion Details LastModified Time Tobacco Smoking Status Never Smoker [facility] [address] [place] [address], [place], [address], [place] [facility] 04/08/2019 12:06:52 Within The [...] No Information not available 04/08/2019 Marital Status alvarado Informatio n not available 04/08/2019 What Was [...] ICD10 Code Diagnosis IMO Codes Diagnosis Note [id number] [facility] [address] [place] [place] [address] 04/05/2019 20:43:47 04/08/2019 19:06:39 Bacterial conjunctivitis 341174841 H10.9 Acute uppe r respiratory infection 30883891 J06.9 Fever 856569724 R50.9 Cough 94231809 R05 Health Concerns Section Related Observation LastModified by Organization Detai ls LastModified Time None Recorded Concern Status LastModified by Organization Details LastModified Time None Recorded Advance Directives Directive None Recorded Payers Insurance Date Sequence Insurance Name Policy Number Policy Macias Covered Member ID Macias Member ID Guarantor Name 04/10/2019 1 [facility] (INDEMNITY) [id number] Shari Bowles [id number] Shari Bowles 04/05/2019 1 *SELF PAY* Shari Bowles [id number] Shari Bowles Notes Date Note Type Note [...] dementia, osteoarthritis [facility] [address], [place], [address], [place] [facility] 04/08/2019 12:11:03 OBGyn Episode No OBEpisode recorded.
--- OUTSIDE RECORDS SUMMARY | 2025-09-19 07:07 | XMS_ITS | Encounter Summary ---
Author Organization [facility] Address [address] [place] [address] Care Team Providers Care Recordings Librarian Name Role Phone Jose Cedillo MD Primary Care Provider Encounter Details Date Type Department Care Team (Late st Contact Info) Description 03/11/2025 Lab Requisition [facility] - Main Lab [address] [place] [address] Arun Flannery MD [address], [place] [id number] Hyperlipidemia, unspecified Social History Tobacco Use Types [...] unspecified documented in this encounter Care Teams Recordings Librarian Relationship Specialty Start Date End Date Jose Cedillo MD [address] [place] [address] PCP - General 02/28/11 documented as of this encounter
--- OUTSIDE RECORDS SUMMARY | 2025-09-19 07:07 | XMS_ITS | Clinical Summary ---
Author Organization [facility] Address [address] [place] [address] Phone Care Team Providers Care Delivery Driver Assistant Name Role Phone Jose Cedillo MD Primary Care Provider [phone] Allergies Active Allergy Reactions Criticality Noted Date [...] Department Care Team Description 07/15/2025 Results Follow-Up [facility] Emergency [address] [place] [address] Mary Villar RN 07/14/2025 5:00 PM EDT - 07/15/2025 12:03 AM EDT Emergency [facility] Emergency [address] [place] [address] Chloe Abdi MD Wyman, Tim, MD Fall, [...] AM EST Sexual Orientation Not on file Last Filed Vital Signs Vital Sign Reading [...] Impression: No pelvic fracture identified. [place] ([id number]) -------- FINAL REPORT -------- Dictated By: Anna Dodd Dictated Date: 07/15/2025 09:23 ET Assigned Physician: Anna Dodd Reviewed and Electronically Signed By: Anna Dodd Signed Date: 07/15/2025 09:25 ET Workstation ID: [id number] Transcribed By: Self Edit Transcribed Date: 07/15/2025 [...] well-maintained. No femoral neck fracture is seen. PHYSICIAN CODER shunt tubing is partially imaged. A large amount of stool is seen within the colon and rectum. Procedure Note Anan Dodd MD - 07/15/2025 History: Pelvic pain after fall. Comparison: Abdominal series 11/21/18 Findings: An AP supine pelvis is submitted. The patient is rotated. No acutefracture is seen. No abnormal widening of the sacroiliac joints isnoted. There is severe loss of cartilage space in the left hip, with marginalosteophytes. The right hip joint is well-maintained. No femoral neckfracture is seen. PHYSICIAN CODER shunt tubing is partially imaged. A large amount of stool is seenwithin the colon and rectum. IMPRESSION: Impression: No pelvic fracture identified. Telerad PA ([id number]) -------- FINAL REPORT -------- Dictated By: Anna Dodd Dictated Date: 07/15/2025 09:23 ET Assigned Physician: Anna Dodd Reviewed and Electronically Signed By: Anna Dodd Signed Date: 07/15/2025 09:25 ET Workstation ID: [id number] Transcribed By: Self Edit Transcribed Date: 07/15/2025 09:23 ET Chloe Abdi MD IMG XR PROCEDURES Final Result * XR Chest 1 View (07/14/2025 9:22 PM EDT) Anatomical Region Laterality Modality Body Radiographic Susie ging 07/15/2025 9:2 7 AM EDT Impressions 07/15/2025 9:30 AM EDT Impression: 1. Lungs grossly clear. 2. Thoracic vertebral compression fractures, including a potentially new fracture since 09/04/24. Telerad GIRISH ([id number]) -------- FINAL REPORT -------- Dictated By: Anna Dodd Dictated Date: 07/15/2025 09:27 ET Assigned Physician: Anna Dodd Reviewed and Electronically Signed By: Anna Dodd Signed Date: 07/15/2025 09:30 ET Workstation ID: [id number] Transcribed By: Self Edit Transcribed Date: 07/15/2025 09:27 ET Narrative 07/15/2025 9:30 AM EDT History: Fall. Chest pain. Comparison: 09/04/24 Findings: AP upright chest. This is a suboptimal inspiration. The cardiac silhouette appears mildly enlarged and the thoracic aorta is tortuous. The pulmonary vascularity is within normal limits. The lungs are grossly clear. PHYSICIAN CODER shunt tubing projects over the right hemithorax, [...] normal limits. The lungs are grossly clear. PHYSICIAN CODER shunt tubing projects over the right hemithorax, unchanged. Twoadjacent vertebral fractures are seen in the mid thoracic spine, only oneof which is visualized on the previous exam. IMPRESSION: Impression: 1. Lungs grossly clear. 2. Thoracic vertebral compression fractures, including a potentially newfracture since 09/04/24. Telerad GIRISH ([id number]) -------- FINAL REPORT -------- Dictated By: Anna Dodd Dictated Date: 07/15/2025 09:27 ET Assigned Physician: Anna Dodd Reviewed and Electronically Signed By: Anna Dodd Signed Date: 07/15/2025 09:30 ET Workstation ID: [id number] Transcribed By: Self Edit Transcribed Date: 07/15/2025 [...] tissues: Normal Additional abnormality: Right frontal approach PHYSICIAN CODER shunt. Atherosclerosis calcification of the distal carotid [...] tissues: Normal Additional abnormality: Right frontal approach PHYSICIAN CODER shunt. Atherosclerosis calcification of the distal carotid [...] and culture (07/14/2025 6:47 PM EDT) Specific [place] Urine 1.017 1.003 - 1.030 LAB URINALYSIS - AUTOMATED METHOD 07/14/2025 8:07 PM [facility] pH, Urine 7.0 5.0 - 8.0 pH LAB URINALYSIS - AUTOMATED METHOD 07/14/2025 8:07 PM [facility] Leukocytes, Urine Small(A) Negative LAB URINALYSIS - AUTOMATED METHOD 07/14/2025 8:07 PM [facility] Nitrite, Urine Negative Negative LAB URINALYSIS - AUTOMATED METHOD 07/14/2025 8:07 PM [facility] Protein, Urine Negative <=Trace mg/dL LAB URINALYSIS - AUTOMATED METHOD 07/14/2025 8:07 PM [facility] Glucose, Urine Negative Negative mg/dL LAB URINALYSIS - AUTOMATED METHOD 07/14/2025 8:07 PM [facility] Ketones, Urine Negative Negative mg/dL LAB URINALYSIS - AUTOMATED METHOD 07/14/2025 8:07 PM [facility] Urobilinogen, Urine 1.0 0.2 - 1.0 mg/dL LAB URINALYSIS - AUTOMATED METHOD 07/14/2025 8:07 PM [facility] Bilirubin, Urine Negative Negative LAB URINALYSIS - AUTOMATED METHOD 07/14/2025 8:07 PM [facility] Blood, Urine Negative Negative LAB URINALYSIS - AUTOMATED METHOD 07/14/2025 8:07 PM [facility] RBC, Urine 2.0 0 - 4 /HPF LAB URINALYSIS - AUTOMATED METHOD 07/14/2025 8:07 PM EDT [facility] WBC, Urine 3.5 0 - 4 /HPF LAB URINALYSIS - AUTOMATED METHOD 07/14/2025 8:07 PM EDT [facility] Squamous Epithelial, Urine 28 0 - 60 /LPF LAB URINALYSIS - AUTOMATED METHOD 07/14/2025 8:07 PM EDT [facility] Bacteria, Urine Negative Negative /HPF LAB URINALYSIS - AUTOMATED METHOD 07/14/2025 8:07 PM EDT [facility] Hyaline Casts, Urine 0.4 0 - 3 /LPF LAB URINALYSIS - AUTOMATED METHOD 07/14/2025 8:07 PM EDT [facility] Urine Urine specimen obtained by clean catch procedure / Unknown Non-blood Collection / Unknown 07/14/2025 6:47 PM EDT 07/14/2025 6:57 PM EDT us Chloe Abdi MD LAB URINE ORDERABLES Final Res ult [facility] [address] [place] [address], [place] [phone] * Connelly urine culture tube (07/14/2025 6:47 PM EDT) Extra Tube Hold for add-ons. 07/14/2025 8:01 PM EDT [facility] Comment:Auto resulted. Urine Urine specimen obtained by clean catch procedure / Unknown Non-blood Collection / Unknown 07/14/2025 6:47 PM EDT 07/14/2025 6:57 PM EDT us Chloe Abdi MD LAB URINE ORDERABLES Final Res ult Performing Organization Address City/[facility] [address]/ZIP Co de Phone Number [facility] [address] [place] [address], [place] [phone] * Culture urine (07/14/2025 6:47 PM EDT) Pathologist [facility] Culture, Urine 10,000-49,000 CFU/mL Mixed bacterial morphotypes present suggestive of possible contamination during collection. Suggest appropriate recollection if clinically indicated. 07/15/2025 1:21 PM EDT [facility] Urine Urine specimen obtained by clean catch procedure / Unknown Non-blood Collection / Unknown 07/14/2025 6:47 PM EDT 07/14/2025 8:07 PM EDT us Chloe Abdi MD LAB MICROBIOLOGY - GENERAL ORD ERABLES Final Result [facility] [address] [place] [address], [place] [phone] * Basic metabolic panel (02/19/2025 8:04 AM EDT) Pathologist [facility] Sodium 140 133 - 145 mmol/L LAB CHEMISTRY METHOD 02/19/2025 10:17 AM [facility] Potassium 3.9 3.5 - 5.5 mmol/L LAB CHEMISTRY METHOD 02/19/2025 10:17 AM [facility] Chloride 108 96 - 110 mmol/L LAB CHEMISTRY METHOD 02/19/2025 10:17 AM [facility] CO2 27 21 - 32 mmol/L LAB CHEMISTRY METHOD 02/19/2025 10:17 AM [facility] Anion Gap 5 3 - 11 LAB CHEMISTRY METHOD 02/19/2025 10:17 AM [facility] Glucose 83 70 - 100 mg/dL LAB CHEMISTRY METHOD 02/19/2025 10:17 AM [facility] BUN 21 5 - 25 mg/dL LAB CHEMISTRY METHOD 02/19/2025 10:17 AM [facility] Creatinine 0.83 0.50 - 1.10 mg/dL LAB CHEMISTRY METHOD 02/19/2025 10:17 AM EDT [facility] eGFR 68 >=60 mL/min/1. 73m2 LAB CHEMISTRY METHOD 02/19/2025 10:17 AM EDT [facility] Comment:Calculation based on the Chronic Kidney Disease Epidemiology Collaboration (CKD-EPI) equation refit without adjustment for race. BUN/Creatinine Ratio 25.3 LAB CHEMISTRY METHOD 02/19/2025 10:17 AM EDT [facility] Calcium 9.5 8.5 - 10.5 mg/dL LAB CHEMISTRY METHOD 02/19/2025 10:17 AM EDT [facility] Blood Venous blood specimen / Unknown Venipuncture / Unknown 02/19/2025 8:04 AM EDT 02/19/2025 9:20 AM EDT us Arun Flannery MD LAB BLOOD ORDERABLES Final R esult [facility] [address] [place] [address], from Last 3 Months or Most Recently Relevant to Health Maintenance [place] [address] Advance Directives Documents on File Type Date Recorded Patient Tower Hand Expl anation Advance Directives and Living Will [...] Branch Other Health Care Agent Care Teams Delivery Driver Assistant Relationship Specialty Start Date End Date Jose Cedillo MD [address] [place] [phone] PCP - General 02/28/11
--- OUTSIDE RECORDS SUMMARY | 2025-09-19 07:07 | XMS_ITS | Encounter Summary ---
Author Organization [facility] Address [address] [place] [address] Care Team Providers Care Sales And Events Coordinator Name Role Phone Jose Cedillo MD Primary Care Provider [phone] Encounter Details Date Type Department Care Team (Late st Contact Info) Description 02/11/2025 Lab Requisition [facility] - Main Lab [address] [place] [address] Arun Flannery MD [address], [place] [phone] Unspecified dementia, unspecified severity, without behavioral disturbance, [...] mmol/L LAB CHEMISTRY METHOD 02/11/2025 10:43 AM [facility] Potassium 4.2 3.5 - 5.5 mmol/L LAB CHEMISTRY METHOD 02/11/2025 10:43 AM [facility] Chloride 104 96 - 110 mmol/L LAB CHEMISTRY METHOD 02/11/2025 10:43 AM [facility] CO2 30 21 - 32 mmol/L LAB CHEMISTRY METHOD 02/11/2025 10:43 AM [facility] Anion Gap 5 3 - 11 LAB CHEMISTRY METHOD 02/11/2025 10:43 AM [facility] Glucose 79 70 - 100 mg/dL LAB CHEMISTRY METHOD 02/11/2025 10:43 AM [facility] BUN 20 5 - 25 mg/dL LAB CHEMISTRY METHOD 02/11/2025 10:43 AM [facility] Creatinine 0.81 0.50 - 1.10 mg/dL LAB CHEMISTRY METHOD 02/11/2025 10:43 AM [facility] eGFR 70 >=60 mL/min/1. 73m2 LAB CHEMISTRY METHOD 02/11/2025 10:43 AM [facility] Comment:Calculation based on the Chronic Kidney Disease Epidemiology Collaboration (CKD-EPI) equation refit without adjustment for race. BUN/Creatinine Ratio 24.7 LAB CHEMISTRY METHOD 02/11/2025 10:43 AM [facility] Calcium 10.4 8.5 - 10.5 mg/dL LAB CHEMISTRY METHOD 02/11/2025 10:43 AM [facility] Blood Venous blood specimen / Unknown Venipuncture / Unknown 02/11/2025 7:47 AM EDT 02/11/2025 9:35 AM EDT us Arun Flannery MD LAB BLOOD ORDERABLES Final R esult [facility] [address] [place] [address], * Complete blood count (02/11/2025 7:47 AM EDT) WBC 7.2 4.8 - 10.8 K/mcL LAB HEMETOLOGY METHOD 02/11/2025 10:23 AM EDT [facility] RBC 4.40 3.80 - 4.80 M/mcL LAB HEMETOLOGY METHOD 02/11/2025 10:23 AM EDT [facility] Hemoglobin 13.3 11.5 - 16.0 g/dL LAB HEMETOLOGY METHOD 02/11/2025 10:23 AM EDT [facility] Hematocrit 40.7 35.0 - 47.0 % LAB HEMETOLOGY METHOD 02/11/2025 10:23 AM EDT [facility] MCV 92.3 79.0 - 98.0 FL LAB HEMETOLOGY METHOD 02/11/2025 10:23 AM EDT [facility] MCH 30.2 27.0 - 32.0 pcg LAB HEMETOLOGY METHOD 02/11/2025 10:23 AM EDT [facility] MCHC 32.7 32.0 - 37.0 g/dL LAB HEMETOLOGY METHOD 02/11/2025 10:23 AM EDT [facility] RDW 11.8 11.0 - 15.0 % LAB HEMETOLOGY METHOD 02/11/2025 10:23 AM EDT [facility] Platelets 233 130 - 400 K/mcL LAB HEMETOLOGY METHOD 02/11/2025 10:23 AM EDT [facility] MPV 11.0 7.0 - 11.0 FL LAB HEMETOLOGY METHOD 02/11/2025 10:23 AM EDT [facility] NRBC 0.0 <1.0 % LAB HEMETOLOGY METHOD 02/11/2025 10:23 AM EDT [facility] NRBC Absolute 0.00 <0.10 K/mcL LAB HEMETOLOGY METHOD 02/11/2025 10:23 AM EDT [facility] Blood Venous blood specimen / Unknown Venipuncture / Unknown 02/11/2025 7:47 AM EDT 02/11/2025 9:35 AM EDT us Arun Flannery MD LAB BLOOD ORDERABLES Final R esult [facility] [address] [place] [address], documented in this encounter Visit Diagnoses Diagnosis Unspecified dementia, unspecified severity, without behavioral disturbance, psychotic disturbance, mood disturbance, and anxiety (CMS/HCC V24, CMS/HCC V28) Anxiety disorder, unspecified Essential (primary) hypertension Unspecified essential hypertension Hyperlipidemia, unspecified Hydrocephalus, unspecified (CMS/HCC V24, CMS/HCC V28) documented in this encounter Care Teams Sales And Events Coordinator Relationship Specialty Start Date End Date Jose Cedillo MD [address] [place] [address] PCP - General 02/28/11 documented as of this encounter
--- OUTSIDE RECORDS SUMMARY | 2025-09-19 07:07 | XMS_ITS | Encounter Summary ---
Author Organization [facility] Address [address] [place] [address] Care Team Providers Care Financial Report Service Sales Agent Name Role Phone Jose Cedillo MD Primary Care Provider [phone] Encounter Details Date Type Department Care Team (Late st Contact Info) Description 07/15/2025 Results Follow-Up [facility] Emergency [address] [place] [address] Mary Villar RN Social History [...] Spoke with facility and lawyer augustus at [phone]. He stated she is ok and will call to follow up with pcp documented in this encounter Plan of Treatment Not on file documented as of this encounter Visit Diagnoses Not on filedocumented in this encounter Care Teams Financial Report Service Sales Agent Relationship Specialty Start Date End Date Jose Cedillo MD [facility] [place] [address] PCP - General 02/28/11 documented as of this encounter
--- OUTSIDE RECORDS SUMMARY | 2025-09-19 07:07 | XMS_ITS | Encounter Summary ---
Author Organization [facility] Address [address] [place] [address] Care Team Providers Care Pot Fluxer Name Role Phone Jose Cedillo MD Primary Care Provider [phone] Encounter Details Date Type Department Care Team (Late st Contact Info) Description 02/14/2025 Lab Requisition [facility] - Main Lab [address] [place] [address] Arun Flannery MD [address] [place] [address] Unspecified dementia, unspecified severity, without [...] disturbance, mood disturbance, and anxiety (CMS/HCC V24, CMS/[facility] V28) Essential (primary) hypertension Unspecified essential hypertension Hyperlipidemia, unspecified documented in this encounter Care Teams Pot Fluxer Relationship Specialty Start Date End Date Jose Cedillo MD [address] [place] [phone] PCP - General 02/28/11 documented as of this encounter
--- OUTSIDE RECORDS SUMMARY | 2025-09-19 07:07 | XMS_ITS | Encounter Summary ---
Author Organization [facility] Address [address] [place] [address] Care Team Providers Care Customer Engagement Specialist Name Role Phone Jose Cedillo MD Primary Care Provider [phone] Encounter Details Date Type Department Care Team (Late st Contact Info) Description 02/19/[address] [facility] - Main Lab [address] [place] [address] Arun Flannery MD [address] [place] [address] Essential (primary) hypertension Social History [...] Basic metabolic panel (02/19/2025 8:04 AM EDT) [facility] Sodium 140 133 - 145 mmol/L [...] R esult [facility] [address] [place] [address], * Complete blood count (02/19/2025 8:04 AM [...] MD LAB BLOOD ORDERABLES Final R esult [facility] [address] [place] [address], documented in this encounter Visit Diagnoses Diagnosis Essential (primary) hypertension Unspecified essential hypertension documented in this encounter Care Teams Customer Engagement Specialist Relationship Specialty Start Date End Date Jose Cedillo MD [address] [place] [address] PCP - General 02/28/11 documented as of this encounter
[2025-09-19 07:11] LABS: Hematocrit 37.7 % (37.0-47.0); Hemoglobin 12.6 g/dl (12.0-16.0); Imm Gran Abs Auto 0.05 X10*3/uL (0.00-0.03); Imm Gran Pct Auto 0.5 % (0.0-0.4); Lymphocytes Absolute Auto 1.1 X10*3/uL (1.2-4.9); Mean Corpuscular HGB Conc 33.4 g/dl (31.0-35.0); Mean Corpuscular Hemoglobin 31.0 pg (27.0-33.0); Mean Corpuscular Volume 92.6 fL (80.0-98.0); NRBC Abs Auto 0.000 X10*3/uL (0.0-0.012); NRBC Pct Auto 0.0 /100WBC (0.0-0.2); Platelet Count 218 X10*3/uL (160-400); Red Blood Count 4.07 X10*6/uL (4.20-5.50); White Blood Count 9.9 X10*3/uL (4.8-10.8)
[2025-09-19 07:35] LABS: Alanine Aminotransferase 10 U/L (0-31); Albumin Level 3.4 g/dL (3.5-5.0); Alkaline Phosphatase 97 U/L (39-117); Anion Gap 13 (12-20); Aspartate Amino Transferase 15 U/L (5-31); Blood Urea Nitrogen 26 mg/dL (9-16); Calcium 8.9 mg/dL (8.4-10.2); Carbon Dioxide 26 mmol/L (22-29); Chloride 111 mmol/L (96-108); Estimated Glomerular Filt Rate > 60; Potassium 3.5 mmol/L (3.3-5.1); Sodium 146 mmol/L (135-145); Total Protein 6.2 g/dL (6.5-8.0)
== END 2025-09-19 07:02 | disposition home or self-care (01) ==
LOC: HO.MMNH3L 07:01
PROVIDERS: Visit Provider Physician Assistant Medical
DX: N17.9 Acute kidney failure, unspecified (principal); G91.9 Hydrocephalus, unspecified
CPT/HCPCS: 36415; 80053; 85025

== ENCOUNTER 2025-09-29 06:34 | Outpatient (REF) | payer OTHER, SELFPAY ==
[2025-09-29 06:31] LABS: MANUAL DIFF FLAG NO
--- OUTSIDE RECORDS SUMMARY | 2025-09-29 06:37 | XMS_ITS | Encounter Summary ---
Author Organization [facility] Address [address] [place] [address] Care Team Providers Care Home Theater Specialist Name Role Phone Jose Cedillo MD Primary Care Provider [phone] Encounter Details Date Type Department Care Team (Late st Contact Info) Description 02/14/2025 Lab Requisition [facility] - Main Lab [address] [place] [address] Arun Flannery MD [address] [place] [address] Unspecified dementia, unspecified severity, without [...] disturbance, mood disturbance, and anxiety (CMS/HCC V24, CMS/[facility] V28) Essential (primary) hypertension Unspecified essential hypertension Hyperlipidemia, unspecified documented in this encounter Care Teams Home Theater Specialist Relationship Specialty Start Date End Date Jose Cedillo MD [address] [place] [phone] PCP - General 02/28/11 documented as of this encounter
--- OUTSIDE RECORDS SUMMARY | 2025-09-29 06:37 | XMS_ITS | Data Portability ---
Author Organization [place] [facility] Address [address] [place] [address] Care Team Providers Care Over The Road Driver Name Role Phone HERNANDEZ AURORA Primary Care Provider Assessment Encounter Date Assessment [...] I have accessed patient records on the [employer]. This information was pertinent in my medical decision making today. Time On Scene with Patient: 00:33:34 alvarado Not available 04/08/2019 12:10:59 Plan of Treatment Reminders Order Date Submit Date Provider Last Modified By Organization Details Last Modified Time Details Appointments None recorded. Lab rapid flu (A+B) 2018 019 alvarado [facility], [address] [place] [address], [phone], 9 21:25:33 Referral None recorded. Procedures None recorded. Surgeries None recorded. Imaging XR, chest, 2 view 2018 019 [facility] ([facility]), [address] [place] [address], [place], [address], 9 15:28:38 Medication Orders acetaminop hen 325 mg tablet 2018 019 [id number], [address] [place], [address], 9 21:13:37 acetaminop hen 325 mg tablet 2018 019 INTERFACE [id number], [address] [place], [address], 9 21:13:40 Tessalon Perles 100 mg capsule 2018 019 INTERFACE [id number], [address] [place], [address], 9 21:13:40 erythromyc in 5 mg/gram (0.5 %) eye ointment 2018 019 INTERFACE [id number], [address] [place], [address], 9 21:13:42 Flonase Allergy Relief 50 mcg/actuat ion nasal spray,susp ension 2018 019 INTERFACE [id number], [address] [place], [address], 9 10:05:55 Patient TargetsNo targets recorded. Patient Instructions Encounter Date Encounter Id Patient Instructions Last Modified By Organization Details Last Modified Time 04/05/2019 [id number] pinkeye: care instructions nyuzych Not available 04/05/2019 [...] (A+B) Flu A negati ve Not Available [facility] [address] [place], [address], 04/05/2019 20:53:20 04/05/20 19 04/05/2019 rapid flu (A+B) Flu B negati ve Not Available [facility] [address] [place], [address], 04/05/2019 20:53:20 04/07/20 19 XR, chest , 2 view No observ ation record ed. [facility] ([facility]) [address], [place], [address], 04/08/2019 15:37:43 Result Notes None recorded. Medical [...] Relief 50 mcg/actuati on nasal spray,suspe nsion [place] 1 spray every day by intranasa l [...] Tobacco Smoking Status Never Smoker GIRISH ROYAL [address] [place] [address], [place], [address], [place] [facility] 04/08/2019 12:06:52 Within The [...] ICD10 Code Diagnosis IMO Codes Diagnosis Note [id number] [facility] [address] [facility] [place] [address] 04/05/2019 20:43:47 04/08/2019 19:06:39 Bacterial conjunctivitis 957243844 H10.9 Acute uppe r respiratory infection [id number] J06.9 Fever [id number] R50.9 Cough [id number] R05 Health Concerns Section Related Observation LastModified by Organization Detai ls LastModified Time None Recorded Concern Status LastModified by Organization Details LastModified Time None Recorded Advance Directives Directive None Recorded Payers Insurance Date Sequence Insurance Name Policy Number Policy Macias Covered Member ID Macias Member ID Guarantor Name 04/10/2019 1 [facility] [employer] (INDEMNITY) [id number] Shari Bowles [id number] Shari Bowles 04/05/2019 1 *SELF PAY* Shari Bowles [id number] Shari Bowles Notes Date Note Type Note [...] dementia, osteoarthritis GIRISH ROYAL [address], [place], [address], [place] [facility] 04/08/2019 12:11:03 OBGyn Episode No OBEpisode recorded.
--- OUTSIDE RECORDS SUMMARY | 2025-09-29 06:37 | XMS_ITS | Encounter Summary ---
Author Organization [facility] Address [address] [place] [address] Care Team Providers Care Demolition Hammer Operator Name Role Phone Jose Cedillo MD Primary Care Provider [phone] Encounter Details Date Type Department Care Team (Late st Contact Info) Description 02/11/2025 Lab Requisition [facility] - Main Lab [address] [place] [address] Arun Flannery MD [address] [place], [place] [id number] Unspecified dementia, unspecified severity, without behavioral disturbance, [...] R esult [facility] [address] [place] [address], * Complete blood count (02/11/2025 7:47 AM EDT) WBC 7.2 4.8 - 10.8 K/mcL LAB HEMETOLOGY METHOD 02/11/2025 10:23 AM EDT [facility] RBC 4.40 3.80 - 4.80 M/mcL LAB HEMETOLOGY METHOD 02/11/2025 10:23 AM EDT [facility] Hemoglobin 13.3 11.5 - 16.0 g/dL LAB HEMETOLOGY METHOD 02/11/2025 10:23 AM EDT [facility] Hematocrit 40.7 35.0 - 47.0 % LAB HEMETOLOGY METHOD 02/11/2025 10:23 AM EDT [facility] MCV 92.3 79.0 - 98.0 FL LAB HEMETOLOGY METHOD 02/11/2025 10:23 AM EDT [facility] MCH 30.2 27.0 - 32.0 pcg LAB HEMETOLOGY METHOD 02/11/2025 10:23 AM EDT [facility] MCHC 32.7 32.0 - 37.0 g/dL LAB HEMETOLOGY METHOD 02/11/2025 10:23 AM EDT [facility] RDW 11.8 11.0 - 15.0 % LAB HEMETOLOGY METHOD 02/11/2025 10:23 AM EDT [facility] Platelets 233 130 - 400 K/mcL LAB HEMETOLOGY METHOD 02/11/2025 10:23 AM EDT [facility] MPV 11.0 7.0 - 11.0 FL LAB HEMETOLOGY METHOD 02/11/2025 10:23 AM EDT [facility] NRBC 0.0 <1.0 % LAB HEMETOLOGY METHOD 02/11/2025 10:23 AM EDT [facility] NRBC Absolute 0.00 <0.10 K/mcL LAB HEMETOLOGY METHOD 02/11/2025 10:23 AM EDT [facility] Blood Venous blood specimen / Unknown Venipuncture / Unknown 02/11/2025 7:47 AM EDT 02/11/2025 9:35 AM EDT us Arun Flannery MD LAB BLOOD ORDERABLES Final R esult [facility] [address] [place] [address], documented in this encounter Visit Diagnoses Diagnosis Unspecified dementia, unspecified severity, without behavioral disturbance, psychotic disturbance, mood disturbance, and anxiety (CMS/HCC V24, CMS/HCC V28) Anxiety disorder, unspecified Essential (primary) hypertension Unspecified essential hypertension Hyperlipidemia, unspecified Hydrocephalus, unspecified (CMS/HCC V24, CMS/HCC V28) documented in this encounter Care Teams Demolition Hammer Operator Relationship Specialty Start Date End Date Jose Cedillo MD [address] [place] [address] PCP - General 02/28/11 documented as of this encounter
--- OUTSIDE RECORDS SUMMARY | 2025-09-29 06:37 | XMS_ITS | Encounter Summary ---
Author Organization [facility] Address [address] [place] [address] Care Team Providers Care Cost Reduction Engineer Name Role Phone Jose Cedillo MD Primary Care Provider [phone] Encounter Details Date Type Department Care Team (Late st Contact Info) Description 02/22/[address] [facility] - Main Lab [address] [place] [address] Arun Flannery MD [address] [place] [address] Unspecified dementia, unspecified severity, without [...] disturbance, mood disturbance, and anxiety (CMS/HCC V24, CMS/LTAC, [facility] V28) Essential (primary) hypertension Unspecified essential hypertension Hyperlipidemia, unspecified documented in this encounter Care Teams Cost Reduction Engineer Relationship Specialty Start Date End Date Jose Cedillo MD [address] [place] [phone] PCP - General 02/28/11 documented as of this encounter
--- OUTSIDE RECORDS SUMMARY | 2025-09-29 06:37 | XMS_ITS | Clinical Summary ---
Author Organization [facility] Address [address] [place] [address] Phone Care Team Providers Care Dining Services Manager Name Role Phone Jose Cedillo MD Primary Care Provider [phone] Allergies Active Allergy Reactions Criticality Noted Date [...] Department Care Team Description 07/15/2025 Results Follow-Up [facility] [address] [place] [address] Mary Villar RN 07/14/2025 5:00 PM EDT - 07/15/2025 12:03 AM EDT Emergency [facility] [address] [place] [address] Chloe Abdi MD Wyman, Tim, MD Fall, [...] Impression: No pelvic fracture identified. [place] ([id number]) -------- FINAL REPORT -------- Dictated By: Anna Dodd Dictated Date: 07/15/2025 09:23 ET Assigned Physician: Anna Dodd Reviewed and Electronically Signed By: Anna Dodd Signed Date: 07/15/2025 09:25 ET Workstation ID: [id number] Transcribed By: Self Edit Transcribed Date: 07/15/2025 [...] well-maintained. No femoral neck fracture is seen. MONITORING ANALYST shunt tubing is partially imaged. A large [...] is well-maintained. No femoral neckfracture is seen. MONITORING ANALYST shunt tubing is partially imaged. A large amount of stool is seenwithin the colon and rectum. IMPRESSION: Impression: No pelvic fracture identified. Telerad PA ([id number]) -------- FINAL REPORT -------- Dictated By: Anna Dodd Dictated Date: 07/15/2025 09:23 ET Assigned Physician: Anna Dodd Reviewed and Electronically Signed By: Anna Dodd Signed Date: 07/15/2025 09:25 ET Workstation ID: [id number] Transcribed By: Self Edit Transcribed Date: 07/15/2025 09:23 ET Chloe Abdi MD IMG XR PROCEDURES Final Result * XR Chest 1 View (07/14/2025 9:22 PM EDT) Anatomical Region Laterality Modality Body Radiographic Susie ging 07/15/2025 9:2 7 AM EDT Impressions 07/15/2025 9:30 AM EDT Impression: 1. Lungs grossly clear. 2. Thoracic vertebral compression fractures, including a potentially new fracture since 09/04/24. Telerad GIRISH ([id number]) -------- FINAL REPORT -------- Dictated By: Anna Dodd Dictated Date: 07/15/2025 09:27 ET Assigned Physician: Anna Dodd Reviewed and Electronically Signed By: Anna Dodd Signed Date: 07/15/2025 09:30 ET Workstation ID: [id number] Transcribed By: Self Edit Transcribed Date: 07/15/2025 09:27 ET Narrative 07/15/2025 9:30 AM EDT History: Fall. Chest pain. Comparison: 09/04/24 Findings: AP upright chest. This is a suboptimal inspiration. The cardiac silhouette appears mildly enlarged and the thoracic aorta is tortuous. The pulmonary vascularity is within normal limits. The lungs are grossly clear. MONITORING ANALYST shunt tubing projects over the right hemithorax, [...] normal limits. The lungs are grossly clear. MONITORING ANALYST shunt tubing projects over the right hemithorax, unchanged. Twoadjacent vertebral fractures are seen in the mid thoracic spine, only oneof which is visualized on the previous exam. IMPRESSION: Impression: 1. Lungs grossly clear. 2. Thoracic vertebral compression fractures, including a potentially newfracture since 09/04/24. Telerad GIRISH ([id number]) -------- FINAL REPORT -------- Dictated By: Anna Dodd Dictated Date: 07/15/2025 09:27 ET Assigned Physician: Anna Dodd Reviewed and Electronically Signed By: Anna Dodd Signed Date: 07/15/2025 09:30 ET Workstation ID: [id number] Transcribed By: Self Edit Transcribed Date: 07/15/2025 [...] tissues: Normal Additional abnormality: Right frontal approach MONITORING ANALYST shunt. Atherosclerosis calcification of the distal carotid [...] tissues: Normal Additional abnormality: Right frontal approach MONITORING ANALYST shunt. Atherosclerosis calcification of the distal carotid [...] and culture (07/14/2025 6:47 PM EDT) Specific [place] Urine 1.017 1.003 - 1.030 LAB URINALYSIS - AUTOMATED METHOD 07/14/2025 8:07 PM [facility] pH, Urine 7.0 5.0 - 8.0 pH LAB URINALYSIS - AUTOMATED METHOD 07/14/2025 8:07 PM [facility] Leukocytes, Urine Small(A) Negative LAB URINALYSIS - AUTOMATED METHOD 07/14/2025 8:07 PM [facility] Nitrite, Urine Negative Negative LAB URINALYSIS - AUTOMATED METHOD 07/14/2025 8:07 PM [facility] Protein, Urine Negative <=Trace mg/dL LAB URINALYSIS - AUTOMATED METHOD 07/14/2025 8:07 PM [facility] Glucose, Urine Negative Negative mg/dL LAB URINALYSIS - AUTOMATED METHOD 07/14/2025 8:07 PM [facility] Ketones, Urine Negative Negative mg/dL LAB URINALYSIS - AUTOMATED METHOD 07/14/2025 8:07 PM [facility] Urobilinogen, Urine 1.0 0.2 - 1.0 mg/dL LAB URINALYSIS - AUTOMATED METHOD 07/14/2025 8:07 PM [facility] Bilirubin, Urine Negative Negative LAB URINALYSIS - AUTOMATED METHOD 07/14/2025 8:07 PM [facility] Blood, Urine Negative Negative LAB URINALYSIS - AUTOMATED METHOD 07/14/2025 8:07 PM [facility] RBC, Urine 2.0 0 - 4 /HPF LAB URINALYSIS - AUTOMATED METHOD 07/14/2025 8:07 PM EDT [facility] WBC, Urine 3.5 0 - 4 /HPF LAB URINALYSIS - AUTOMATED METHOD 07/14/2025 8:07 PM EDT [facility] Squamous Epithelial, Urine 28 0 - 60 /LPF LAB URINALYSIS - AUTOMATED METHOD 07/14/2025 8:07 PM EDT [facility] Bacteria, Urine Negative Negative /HPF LAB URINALYSIS - AUTOMATED METHOD 07/14/2025 8:07 PM EDT [facility] Hyaline Casts, Urine 0.4 0 - 3 /LPF LAB URINALYSIS - AUTOMATED METHOD 07/14/2025 8:07 PM EDT [facility] Urine Urine specimen obtained by clean catch procedure / Unknown Non-blood Collection / Unknown 07/14/2025 6:47 PM EDT 07/14/2025 6:57 PM EDT us Chloe Abdi MD LAB URINE ORDERABLES Final Res ult [facility] [address] [place] [address], [place] [phone] * Connelly urine culture tube (07/14/2025 6:47 PM EDT) Extra Tube Hold for add-ons. 07/14/2025 8:01 PM EDT [facility] Comment:Auto resulted. Urine Urine specimen obtained by clean catch procedure / Unknown Non-blood Collection / Unknown 07/14/2025 6:47 PM EDT 07/14/2025 6:57 PM EDT us hCloe Abdi MD LAB URINE ORDERABLES Final Res ult Performing Organization Address City/[facility]/ZIP Co de Phone Number [facility] [address] [place] [address], [place] [phone] * Culture urine (07/14/2025 6:47 PM EDT) Pathologist [facility] Culture, Urine 10,000-49,000 CFU/mL Mixed bacterial morphotypes present suggestive of possible contamination during collection. Suggest appropriate recollection if clinically indicated. 07/15/2025 1:21 PM EDT [facility] Urine Urine specimen obtained by clean catch procedure / Unknown Non-blood Collection / Unknown 07/14/2025 6:47 PM EDT 07/14/2025 8:07 PM EDT us Chloe Abdi MD LAB MICROBIOLOGY - GENERAL ORD ERABLES Final Result [facility] [address] [place] [address], [place] [phone] * Basic metabolic panel (02/19/2025 8:04 AM EDT) Pathologist [facility] Sodium 140 133 - 145 mmol/L LAB CHEMISTRY METHOD 02/19/2025 10:17 AM [facility] Potassium 3.9 3.5 - 5.5 mmol/L LAB CHEMISTRY METHOD 02/19/2025 10:17 AM [facility] Chloride 108 96 - 110 mmol/L LAB CHEMISTRY METHOD 02/19/2025 10:17 AM [facility] CO2 27 21 - 32 mmol/L LAB CHEMISTRY METHOD 02/19/2025 10:17 AM [facility] Anion Gap 5 3 - 11 LAB CHEMISTRY METHOD 02/19/2025 10:17 AM [facility] Glucose 83 70 - 100 mg/dL LAB CHEMISTRY METHOD 02/19/2025 10:17 AM [facility] BUN 21 5 - 25 mg/dL LAB CHEMISTRY METHOD 02/19/2025 10:17 AM [facility] Creatinine 0.83 0.50 - 1.10 mg/dL LAB CHEMISTRY METHOD 02/19/2025 10:17 AM EDT [facility] eGFR 68 >=60 mL/min/1. 73m2 LAB CHEMISTRY METHOD 02/19/2025 10:17 AM EDT [facility] Comment:Calculation based on the Chronic Kidney Disease Epidemiology Collaboration (CKD-EPI) equation refit without adjustment for race. BUN/Creatinine Ratio 25.3 LAB CHEMISTRY METHOD 02/19/2025 10:17 AM EDT [facility] Calcium 9.5 8.5 - 10.5 mg/dL LAB CHEMISTRY METHOD 02/19/2025 10:17 AM EDT [facility] Blood Venous blood specimen / Unknown Venipuncture / Unknown 02/19/2025 8:04 AM EDT 02/19/2025 9:20 AM EDT us rAun Flannery MD LAB BLOOD ORDERABLES Final R esult [facility] [address] [place] [address], from Last 3 Months or Most Recently Relevant to Health Maintenance [place] [address] [place] [address] Advance Directives Documents on File Type Date Recorded Patient Mine Utility Operator Expl anation Advance Directives and Living Will [...] Branch Other Health Care Agent Care Teams Dining Services Manager Relationship Specialty Start Date End Date Jose Cedillo MD [address] [place] [phone] PCP - General 02/28/11
--- OUTSIDE RECORDS SUMMARY | 2025-09-29 06:37 | XMS_ITS | Encounter Summary ---
Author Organization [facility] Address [address] [place] [address] Care Team Providers Care Physicist Cryogenics Name Role Phone Jose Cedillo MD Primary Care Provider [phone] Encounter Details Date Type Department Care Team (Late st Contact Info) Description 03/11/2025 Lab Requisition [facility] - Main Lab [address] [place] [address] Arun Flannery MD [address] [place], [place] [phone] Hyperlipidemia, unspecified Social History Tobacco Use Types [...] unspecified documented in this encounter Care Teams Physicist Cryogenics Relationship Specialty Start Date End Date Jose Cedillo MD [address] [place] [phone] PCP - General 02/28/11 documented as of this encounter
--- OUTSIDE RECORDS SUMMARY | 2025-09-29 06:37 | XMS_ITS | Encounter Summary ---
Author Organization [facility] Address [address] [place] [address] Care Team Providers Care Assistant Merchandise Manager Name Role Phone Jose Cedillo MD Primary Care Provider [phone] Encounter Details Date Type Department Care Team (Late st Contact Info) Description 02/19/2025 Lab Requisition [facility] - Main Lab [address] [place] [address] Arun Flannery MD [address] [place] [address] Essential (primary) hypertension Social History [...] Basic metabolic panel (02/19/2025 8:04 AM EDT) [facility] Sodium 140 133 - 145 mmol/L LAB CHEMISTRY METHOD 02/19/2025 10:17 AM [facility] Potassium 3.9 3.5 - 5.5 mmol/L LAB CHEMISTRY METHOD 02/19/2025 10:17 AM [facility] Chloride 108 96 - 110 mmol/L LAB CHEMISTRY METHOD 02/19/2025 10:17 AM [facility] CO2 27 21 - 32 mmol/L LAB CHEMISTRY METHOD 02/19/2025 10:17 AM [facility] Anion Gap 5 3 - 11 LAB CHEMISTRY METHOD 02/19/2025 10:17 AM T [facility] Glucose 83 70 - 100 mg/dL LAB CHEMISTRY METHOD 02/19/2025 10:17 AM [facility] BUN 21 5 - 25 mg/dL LAB CHEMISTRY METHOD 02/19/2025 10:17 AM [facility] Creatinine 0.83 0.50 - 1.10 mg/dL LAB CHEMISTRY METHOD 02/19/2025 10:17 AM [facility] eGFR 68 >=60 mL/min/1. 73m2 LAB CHEMISTRY METHOD 02/19/2025 10:17 AM T [facility] Comment:Calculation based on the Chronic Kidney Disease Epidemiology Collaboration (CKD-EPI) equation refit without adjustment for race. BUN/Creatinine Ratio 25.3 LAB CHEMISTRY METHOD 02/19/2025 10:17 AM [facility] Calcium 9.5 8.5 - 10.5 mg/dL LAB CHEMISTRY METHOD 02/19/2025 10:17 AM [facility] Blood Venous blood specimen / Unknown Venipuncture / Unknown 02/19/2025 8:04 AM EDT 02/19/2025 9:20 AM EDT Arun Flannery MD LAB BLOOD ORDERABLES Final R esult [facility] [address] [place] [address], * Complete blood count (02/19/2025 8:04 AM EDT) WBC 6.8 4.8 - 10.8 K/mcL LAB HEMETOLOGY METHOD 02/19/2025 9:50 AM [facility] RBC 4.30 3.80 - 4.80 M/mcL LAB HEMETOLOGY METHOD 02/19/2025 9:50 AM T [facility] Hemoglobin 13.1 11.5 - 16.0 g/dL LAB HEMETOLOGY METHOD 02/19/2025 9:50 AM EDT [facility] Hematocrit 40.0 35.0 - 47.0 % LAB HEMETOLOGY METHOD 02/19/2025 9:50 AM EDT [facility] MCV 92.6 79.0 - 98.0 FL LAB HEMETOLOGY METHOD 02/19/2025 9:50 AM EDT [facility] MCH 30.3 27.0 - 32.0 pcg LAB HEMETOLOGY METHOD 02/19/2025 9:50 AM EDT [facility] MCHC 32.8 32.0 - 37.0 g/dL LAB HEMETOLOGY METHOD 02/19/2025 9:50 AM EDT [facility] RDW 11.9 11.0 - 15.0 % LAB HEMETOLOGY METHOD 02/19/2025 9:50 AM EDT [facility] Platelets 239 130 - 400 K/mcL LAB HEMETOLOGY METHOD 02/19/2025 9:50 AM EDT [facility] MPV 10.6 7.0 - 11.0 FL LAB HEMETOLOGY METHOD 02/19/2025 9:50 AM EDT [facility] NRBC 0.0 <1.0 % LAB HEMETOLOGY METHOD 02/19/2025 9:50 AM EDT [facility] NRBC Absolute 0.00 <0.10 K/mcL LAB HEMETOLOGY METHOD 02/19/2025 9:50 AM EDT [facility] Blood Venous blood specimen / Unknown Venipuncture / Unknown 02/19/2025 8:04 AM EDT 02/19/2025 9:20 AM EDT us Arun Flannery MD LAB BLOOD ORDERABLES Final R esult [facility] [place] [facility] [address] [place] [address], documented in this encounter Visit Diagnoses Diagnosis Essential (primary) hypertension Unspecified essential hypertension documented in this encounter Care Teams Assistant Merchandise Manager Relationship Specialty Start Date End Date Jose Cedillo MD [address] [place] [address] PCP - General 02/28/11 documented as of this encounter
[2025-09-29 06:43] LABS: Hematocrit 35.3 % (37.0-47.0); Hemoglobin 11.6 g/dl (12.0-16.0); Imm Gran Abs Auto 0.04 X10*3/uL (0.00-0.03); Imm Gran Pct Auto 0.5 % (0.0-0.4); Lymphocytes Absolute Auto 1.8 X10*3/uL (1.2-4.9); Mean Corpuscular HGB Conc 32.9 g/dl (31.0-35.0); Mean Corpuscular Hemoglobin 30.8 pg (27.0-33.0); Mean Corpuscular Volume 93.6 fL (80.0-98.0); NRBC Abs Auto 0.000 X10*3/uL (0.0-0.012); NRBC Pct Auto 0.0 /100WBC (0.0-0.2); Platelet Count 199 X10*3/uL (160-400); Red Blood Count 3.77 X10*6/uL (4.20-5.50); White Blood Count 7.3 X10*3/uL (4.8-10.8)
[2025-09-29 06:59] LABS: Anion Gap 11 (12-20); Blood Urea Nitrogen 18 mg/dL (9-16); Calcium 9.5 mg/dL (8.4-10.2); Carbon Dioxide 26 mmol/L (22-29); Chloride 109 mmol/L (96-108); Estimated Glomerular Filt Rate > 60; Potassium 3.4 mmol/L (3.3-5.1); Sodium 143 mmol/L (135-145)
== END 2025-09-29 06:35 | disposition home or self-care (01) ==
LOC: HO.MMNH3L 06:34
PROVIDERS: Visit Provider Physician Assistant Medical
DX: N17.9 Acute kidney failure, unspecified (principal); G91.9 Hydrocephalus, unspecified; R62.7 Adult failure to thrive
CPT/HCPCS: 36415; 80048; 85025